=== PATIENT | male | born 1980 | race Caucasian/White ===

== ENCOUNTER → 2016-10-26 | Outpatient (CLI) | payer OTHER ==
[2016-10-26 12:57] LABS: ALT/SGPT 41 U/L (12-78); BLOOD UREA NITROGEN 26 mg/dl (7-18); BUN/CREATININE RATIO 32.3 (10-20); CALCIUM 9.3 mg/dl (8.5-10.1); CARBON DIOXIDE 27 mmol/L (21-32); CHLORIDE 101 mmol/L (98-107); GLUCOSE 269 mg/dl (70-99); POTASSIUM 4.5 mmol/L (3.5-5.1); SODIUM 136 mmol/L (136-145)
[2016-10-26 13:08] LABS: ALKALINE PHOSPHATASE 101 U/L (45-117); AST/SGOT 17 U/L (15-37); CHOLESTEROL 131 mg/dl (0-200); CHOLESTEROL/HDL RATIO 4.5; HDL CHOLESTEROL 29 mg/dl; LDL CHOLESTEROL CALCULATED 67 mg/dl; TRIGLYCERIDES 175 mg/dl (0-150); VERY LOW DENSITY LIPOPROT CALC 35 mg/dl
[2016-10-26 15:20] LABS: ESTIMATED AVERAGE GLUCOSE 275 mg/dl; HA1C FLAG Normal (Normal)
== END | disposition home or self-care (01) ==
LOC: C.LABPBG 07:54
PROVIDERS: ATTEND Neuromusculoskeletal Medicine & OMM
DX: E11.9 Type 2 diabetes mellitus without complications (principal)

== ENCOUNTER → 2017-01-22 | Outpatient (CLI) | payer OTHER ==
[2017-01-22 12:51] LABS: ALT/SGPT 32 U/L (12-78); AST/SGOT 13 U/L (15-37); BLOOD UREA NITROGEN 15 mg/dl (7-18); BUN/CREATININE RATIO 20.3 (10-20); CALCIUM 8.6 mg/dl (8.5-10.1); CARBON DIOXIDE 25 mmol/L (21-32); CHLORIDE 106 mmol/L (98-107); CREATININE 0.73 mg/dl (0.60-1.40); GLUCOSE 260 mg/dl (70-99); POTASSIUM 4.1 mmol/L (3.5-5.1); SODIUM 138 mmol/L (136-145)
[2017-01-22 12:54] LABS: ALB/GLOB RATIO 1.1 (0.9-2); ALKALINE PHOSPHATASE 107 U/L (45-117)
[2017-01-22 13:46] LABS: ESTIMATED AVERAGE GLUCOSE 252 mg/dl; HA1C FLAG Normal (Normal)
== END | disposition home or self-care (01) ==
LOC: C.LABPBG 08:34
PROVIDERS: ATTEND Neuromusculoskeletal Medicine & OMM
DX: E11.9 Type 2 diabetes mellitus without complications (principal)

== ENCOUNTER → 2017-04-16 | Outpatient (CLI) | payer OTHER ==
[2017-04-16 17:40] LABS: BLOOD UREA NITROGEN 17 mg/dl (7-18); CALCIUM 9.1 mg/dl (8.5-10.1); CARBON DIOXIDE 28 mmol/L (21-32); CREATININE 0.84 mg/dl (0.60-1.40); GLUCOSE 342 mg/dl (70-99); POTASSIUM 4.2 mmol/L (3.5-5.1); SODIUM 134 mmol/L (136-145)
[2017-04-17 06:14] LABS: HEMOGLOBIN A1C 10.6 % (4.5-5.6)
== END | disposition home or self-care (01) ==
LOC: C.LABPBG 15:44
PROVIDERS: ATTEND Neuromusculoskeletal Medicine & OMM
DX: Z00.00 Encounter for general adult medical examination without abnormal findings (principal); E11.9 Type 2 diabetes mellitus without complications

== ENCOUNTER 2021-04-19 15:59 | Inpatient (IN) ==
[2021-04-19] MEDS ORDERED: ONDANSETRON INJ 2 MG/ML 2 ML VIAL IV STA (16:42)
[2021-04-19] MEDS ORDERED: MoRPHine SULFATE 10 MG/ML CARP/VIAL IV STA (16:42)
[2021-04-19] MEDS ORDERED: SODIUM CHLORIDE 0.9% 1000ML 1,000 ML IV ONE (16:45)
--- NOTE | 2021-04-19 16:58 | Emergency Department Note ---
History of Present Illness General Chief complaint: Back Injury/Pain Stated complaint: PAIN, BULGING DISC, BONE SPURS, PINCHED NERVES Time Seen by Provider: 04/19/21 16:14 History of Present Illness Maximum Pain Intensity: 10 40-year-old male who presents to the emergency department with his via private transportation for evaluation of uncontrollable lower back pain radiating down the left lower extremity to the foot. He reports complete numbness of the great toe. The patient reports that he has been seen in the emergency department twice for his condition. He had a recent MRI showing a herniated disc, and is awaiting an appointment with Dr. Vang on 04/28/2021. He also has an appointment to see pain management on 05/12/2021. His PCP tried steroids, however this did raise his blood glucose level too much. The patient was placed on diclofenac 75 mg twice daily, along with Percocets. The patient reports that he took 1 Percocet this morning at 6 AM, 8 AM, 11 PM and 1 PM without relief. The patient has not had any bladder or bowel incontinence. He denies fever or chills. The patient denies any known precipitating injury for his disc herniation, and rates his discomfort a 10 out of 10. Home Medications Medication Instructions Recorded Confirmed Type blood-glucose meter (ListRunneruch #1 ea 12/09/19 03/15/21 Rx Ultra2 Meter) metformin 850 mg tablet 850 mg PO BID #180 tab 12/23/20 04/19/21 Rx cyclobenzaprine 10 mg tablet 10 mg PO TID PRN #30 tab 02/06/21 04/19/21 Rx pen needle, diabetic 32 gauge x #100 ea 02/10/21 03/15/21 Rx 5/32" (BD Ultra-Fine Socorro Pen Needle) blood sugar diagnostic #100 ea 02/13/21 03/15/21 Rx lancets 33 gauge (OneTouch Delica #100 ea 02/13/21 03/15/21 Rx Lancets) diclofenac sodium 75 mg 75 mg PO BID #60 tab 03/15/21 04/19/21 Rx tablet,delayed release insulin aspar prot-insulin aspart 20 unit SUBCUT BID #15 ml 03/22/21 04/19/21 Rx 100 unit/mL (70-30) subcutaneous pen (Novolog Mix 70-30FlexPen U-100) tramadol 50 mg tablet 50 mg PO TID PRN #30 tab 04/04/21 04/19/21 Rx atorvastatin 20 mg tablet 20 mg PO HS 04/11/21 04/19/21 History lisinopril 2.5 mg tablet 2.5 mg PO HS 04/11/21 04/19/21 History oxycodone-acetaminophen 5 mg-325 1 - 2 tab PO Q8H PRN #60 tab 04/14/21 04/19/21 Rx mg tablet (Percocet) insulin degludec 100 See Rx Instructions .ROUTE 04/17/21 04/19/21 Rx unit-liraglutide 3.6 mg/mL(3 mL) .COMPLEX #15 ml subcutaneous pen (Xultophy 100/3.6) prednisone 20 mg tablet 20 mg PO DAILY #40 tab 04/19/21 04/19/21 Rx Allergies Allergy/AdvReac Type Severity Reaction Status Date / Time No Known Allergies Allergy Verified 04/19/21 18:51 Past Med/Surg History Medical History (Updated 04/19/21 @ 21:58 by Bony Rodriguez MD) Diabetes Hearing difficulty Hyperlipidemia Hypertension Postural imbalance Surgical History History of cholecystectomy Family History Grandfather Myocardial infarction Coronary heart disease Diabetes Grandmother Myocardial infarction Coronary heart disease Father Diabetes Hypertension Denies family history of Ovarian cancer Prostate cancer Breast cancer Colorectal cancer Social History Smoking Status: Never smoker Second Hand Exposure: No; Hx Alcohol Use: No Hx Substance Use: No Preferred Language: Romansh Visual Impairment: No Limitations Hearing Ability: Normal Hose Wrapper Required: No Beliefs That Will Affect Care: None marital status: Current Living Situation: Spouse and Family current occupational status: employed current occupation: manual receiver/laborer Other Information That Helps Us Care for You: No Feels Safe at Home: Yes Safety Concerns: Feels Safe At This Time Childhood Exposure to Second-Hand Smoke: No Dental Care, Regularly: No Physical Activity Frequency: Does not Exercise Seatbelt Use: always Sunscreen Use: Yes Assistive Devices: Glasses Review of Systems 10 system review was performed and was negative except for pertinent positives and negatives as indicated in history of present illness Physical Exam Vital Signs Vital Signs - 24 hr 04/19/21 16:02 04/19/21 17:20 04/19/21 18:00 Temperature 36.9 C Temperature Source Temporal Artery Scan Pulse Rate 102 H 106 H 91 H Pulse Rate from SpO2 Sensor 107 H 91 H Respiratory Rate 16 23 25 H Blood Pressure 154/102 H 144/94 H Blood Pressure Mean 119 110 Pulse Oximetry 100 100 98 Oxygen Delivery Method Room Air Sepsis Recent Fever Within 48 Hours No Sepsis New/Unexplained Change in Mental Status N/A Sepsis Action Taken by Nursing No Action Required 04/19/21 19:00 Temperature Temperature Source Pulse Rate 88 Pulse Rate from SpO2 Sensor 86 Respiratory Rate 17 Blood Pressure Blood Pressure Mean Pulse Oximetry 97 Oxygen Delivery Method Sepsis Recent Fever Within 48 Hours Sepsis New/Unexplained Change in Mental Status Sepsis Action Taken by Nursing CONSTITUTIONAL: Healthy and well nourished. Alert and oriented X 3. Patient appears in moderately severe discomfort. HEENT: No scleral icterus or conjunctival injection. NECK: Full active range of motion without discomfort. LYMPHATICS: No cervical chain adenopathy. RESPIRATORY: Clear to auscultation bilaterally with no wheezing, crackles, rhonchi or stridor. CARDIOVASCULAR: Regular rate and rhythm with no murmurs, rubs or gallops. GASTROINTESTINAL: Bowel sounds present in all quadrants. Abdomen is soft and nontender to palpation. MUSCULOSKELETAL: Examination shows tenderness to palpation through the lower lumbar spine without any obvious paraspinous spasm. Negative logroll of the left hip. Positive straight leg raise of the left leg. Negative crossover exam. Hip abductor strength is 3 out of 5 on the left, 4 out of 5 on the right. Pedal pulses are intact. INTEGUMENTARY: No rash or other significant dermatologic conditions noted. HEMATOLOGIC: No ecchymosis or petechiae. PSYCHIATRIC: Positive affect. NEUROLOGIC: No focal neurologic deficits noted. Lower extremity deep tendon reflexes are 2+ and symmetric bilaterally. Course Course Patient history and physical exam were performed. Nurses notes were reviewed. Vital signs were reviewed, showing an elevated blood pressure of 154/102. He is also mildly tachycardic. Patient appears in moderate severe discomfort. I also reviewed prior medical records, showing 2 prior ED visits for his back pain. The patient had an MRI performed on 04/13/2021, showing a right paracentral disc protrusion/herniation at L5-S1 with inferior migration of a 6-7 mm disc fragment. Given the patient's intractable radicular back pain, and current MRI findings, I did discuss the case further with Dr. Vang, spine surgeon, who reviewed MRI findings, and indicates that the patient does need a more urgent surgical intervention. He has requested discussing the case further with the hospitalist service, and anticipates surgical intervention on Saturday. The case was then further discussed with the [facility] Hospitalist service, Dr. Rodriguez. Additional orders were placed for admission, including basic lab work, ECG and portable chest x-ray. Review of labs does show a mild leukocytosis with left shift and bandemia. CMP shows random glucose of 185, otherwise creatinine and LFTs are normal. RNA COVID-19 test was negative. ECG shows a normal sinus rhythm with a poor baseline. Portable chest x-ray was also performed and was normal. Administered Medications Morphine Sulfate (Morphine Sulfate 10 Mg/Ml Carp/Vial) 6 mg IV Q4H PRN PRN Reason: Pain Stop: 05/03/21 23:05 Last Admin: 04/19/21 23:51 Dose: 6 mg Documented by: [id number] Discontinued Medications Hydromorphone HCl (Hydromorphone Inj 0.5 Mg/0.5 Ml Syr) 0.5 mg IV Q1H PRN PRN Reason: Pain Stop: 05/03/21 20:11 Last Admin: 04/19/21 22:00 Dose: 0.5 mg Documented by: [id number] Sodium Chloride (Nss 1000ml) 1,000 mls @ 999 mls/hr IV .Q1H1M ONE Stop: 04/19/21 17:45 Last Infusion: 04/19/21 18:22 Dose: 0 mls/hr Documented by: [id number] Admin: 04/19/21 17:16 Dose: 999 mls/hr Documented by: [id number] Morphine Sulfate (Morphine Sulfate 10 Mg/Ml Carp/Vial) 8 mg IV NOW STA Stop: 04/19/21 16:43 Last Admin: 04/19/21 17:17 Dose: 8 mg Documented by: [id number] Ondansetron HCl (Ondansetron Inj 2 Mg/Ml 2 Ml Vial) 4 mg IV NOW STA Stop: 04/19/21 16:43 Last Admin: 04/19/21 17:16 Dose: 4 mg Documented by: [id number] Medical Decision Making Medical Records Attestation: I reviewed the patient's medical records. Home Medications Current Medication List: was personally reviewed by me Laboratory Data Attestation: I reviewed the patient's lab results. Result diagrams: 04/19/21 17:15 04/19/21 17:15 Lab Results 04/19/21 04/19/21 04/19/21 Range/Units 17:15 17:15 17:16 WBC 13.65 H (4.8-10.8) K/uL RBC 4.80 (4.7-6.1) M/uL Hgb 14.3 (14.0-18.0) g/dL Hct 40.8 L (42-52) % MCV 85.0 (80-100) fL MCH 29.8 (25-34) pg MCHC 35.0 (32-36) g/dL RDW Std Deviation 39.3 (36.4-46.3) fL RDW Coeff of Domenic 12.5 (11.5-14.5) % Plt Count 370 (130-400) K/uL MPV 9.5 (7.4-10.4) fL Immature Gran % (Auto) 0.2 % Neut % (Auto) 73.6 % Lymph % (Auto) 12.2 % Eddy % (Auto) 11.8 % Eos % (Auto) 2.1 % Baso % (Auto) 0.1 % Neut # (Auto) 10.05 H (1.4-6.5) K/uL Lymph # (Auto) 1.66 (1.2-3.4) K/uL Eddy # (Auto) 1.61 H (0.11-0.59) K/uL Eos # (Auto) 0.28 (0-0.5) K/uL Baso # (Auto) 0.02 (0-0.2) K/uL Immature Gran # (Auto) 0.03 H (0.00-0.02) K/uL Sodium 138 (136-145) mmol/L Potassium 4.1 (3.5-5.1) mmol/L Chloride 106 (98-107) mmol/L Carbon Dioxide 25 (21-32) mmol/L Anion Gap 7 (3-11) BUN 20 (6-23) mg/dl Creatinine 0.69 (0.6-1.4) mg/dl Est Cr Clr Drug Dosing Not Reportable Est GFR ( Amer) 135.7 ml/min Est GFR (Non-Af Amer) 117.1 ml/min BUN/Creatinine Ratio 29.0 H (10-20) Glucose 185 H (70-99(Fasting)) mg/dl Calcium 9.1 (8.5-10.1) mg/dl Total Bilirubin 0.4 (0.2-1.0) mg/dl AST 13 (13-39) U/L ALT 22 (7-52) U/L Alkaline Phosphatase 65 (34-104) U/L Total Protein 6.8 (6.0-8.3) gm/dl Albumin 3.9 (3.4-5.0) gm/dl Globulin 2.9 (2.5-4.0) gm/dl Albumin/Globulin Ratio 1.3 (0.9-2) SARS-CoV-2, RNA, NAAT NEGATIVE (NEGATIVE) Imaging Data Attestation: I personally reviewed and interpreted this imaging study as follows: My Impression: My interpretation of a portable chest x-ray does not show any consolidations, pneumothorax or cardiac prominence. The patient's recent MRI report and images were also personally reviewed by me, and discussed with Dr. Vang. Radiologist's Impression: Chest X-Ray 04/19/21 16:42 XR chest 1V portable HISTORY: Back pain. Pre-op COMPARISON: None. FINDINGS: The lungs are clear. Cardiac silhouette is normal in size. No pleural effusions. No pneumothorax. IMPRESSION: No acute process. ACT 112: Negative or not required by law. Electronically signed by: Mohinder Benz M.D. 04/19/2021 4:58 PM ECG Data Attestation: I personally reviewed and interpreted this ECG as follows: Indication: + other (Presurgical ECG) Rate (beats per minute): 92 Rhythm: + normal sinus ECG Intervals/blocks: + Normal QT ECG Norman: + Normal ECG ST segments: + Normal ST segments Comparison ECG Date: no prior available Blood Pressure Blood Pressure Findings: Elevated blood pressure Blood Pressure Disposition: elevated BP felt to be situational MDM Narrative Patient presents to the emergency department with complaint of severe and intractable lower back pain radiating down the left lower extremity to the foot and great toe. The patient has an MRI confirming a large L5-S1 herniation with disc fragment. The case was further discussed with Dr. Vang, spine surgeon, there does feel that the patient warrants urgent surgical decompression. Patient currently does not have any physical exam or MRI findings to suggest cauda equina syndrome. Patient also denies any recent infections to suggest i nfectious etiology. Impression & Plan Intractable neuropathic pain of lumbosacral origin, Lumbar disc herniation with radiculopathy, Insulin dependent diabetes mellitus Discharge Plan Visit Data Chief Complaint: Back Injury/Pain Stated Complaint: PAIN, BULGING DISC, BONE SPURS, PINCHED NERVES ED Provider: Charla Mcrae ED Midlevel Provider: Luis E Shin Discharge Problem: Intractable neuropathic pain of lumbosacral origin, Lumbar disc herniation with radiculopathy, Insulin dependent diabetes mellitus Patient Disposition: Admitted As Inpatient Discharge Instructions Interventions: ED Discharge Assessment Last Done: 04/19/21 22:39
--- NOTE | 2021-04-19 16:59 | XRay Report ---
XR chest 1V portable HISTORY: Back pain. Pre-op COMPARISON: None. FINDINGS: The lungs are clear. Cardiac silhouette is normal in size. No pleural effusions. No pneumot horax. IMPRESSION: No acute process. ACT 112: Negative or not required by law. Electronically signed by: Mohinder Benz M.D. 04/19/2021 4:58 PM
[2021-04-19 17:29] LABS: Basophils # (auto) 0.02 K/uL (0-0.2); Basophils % (auto) 0.1 %; Eosinophils # (auto) 0.28 K/uL (0-0.5); Eosinophils % (auto) 2.1 %; Hematocrit (blood only) 40.8 % (42-52); Hemoglobin 14.3 g/dL (14.0-18.0); Immature Granulocytes # (auto) 0.03 K/uL (0.00-0.02); Immature Granulocytes % (auto) 0.2 %; Lymphocytes # (auto) 1.66 K/uL (1.2-3.4); Lymphocytes % (auto) 12.2 %; Mean Corpuscular Hemoglobin 29.8 pg (25-34); Mean Platelet Volume 9.5 fL (7.4-10.4); Monocytes # (auto) 1.61 K/uL (0.11-0.59); Monocytes % (auto) 11.8 %; Neutrophils # (auto) 10.05 K/uL (1.4-6.5); Neutrophils % (auto) 73.6 %; Platelet Count 370 K/uL (130-400); RDW Coefficient of Variation 12.5 % (11.5-14.5); RDW Standard Deviation 39.3 fL (36.4-46.3); White Blood Count 13.65 K/uL (4.8-10.8)
[2021-04-19 17:53] LABS: Alanine Aminotransferase 22 U/L (7-52); Albumin Globulin Ratio 1.3 (0.9-2); Albumin Level 3.9 gm/dl (3.4-5.0); Alkaline Phosphatase 65 U/L (34-104); Anion Gap 7 (3-11); Aspartate Aminotransferase 13 U/L (13-39); Bilirubin,Total 0.4 mg/dl (0.2-1.0); Blood Urea Nitrogen 20 mg/dl (6-23); Calcium 9.1 mg/dl (8.5-10.1); Carbon Dioxide 25 mmol/L (21-32); Chloride 106 mmol/L (98-107); Est GFR (African American) 135.7 ml/min; Est GFR (Non-African American) 117.1 ml/min; Globulin 2.9 gm/dl (2.5-4.0); Glucose 185 mg/dl (70-99(Fasting)); Potassium 4.1 mmol/L (3.5-5.1); Sodium 138 mmol/L (136-145); Total Protein 6.8 gm/dl (6.0-8.3)
--- NOTE | 2021-04-19 18:34 | History & Physical Report ---
Date of Service April 19, 2021 Assessment & Plan (1) Left lumbar radiculopathy: Plan: Failing all medical therapy at this point. Unable to cope at home. Continue diclofenac 75 mg p.o. twice daily, acetaminophen 1 g p.o. 3 times daily Oxycodone 10 mg every 4 hourly as needed for breakthrough pain first-line, morphine 6 mg every 4 hourly as needed for breakthrough pain second line Discussed pain management versus orthopedics and patient wishes to discuss surgery further at this time. Consult orthospine - ER provider already discussed with Dr. Vang. (2) Insulin dependent diabetes mellitus: Plan: HbA1C 9.3 in March, no need to repeat Home regimen Novolog 70/30 20 units BID and Xultrophy 100/3.6 0.5ml Hold GLP-1 and metformin Start lantus 12 units BID Novolog: Goal BSG Range: Low 110 mg/dL, High 140 mg/dL Correction Factor: 30 mg/dL/unit Carbohydrate ratio = 10 g/unit BSGs ACHS if eating, q6h if npo (3) Hyperlipidemia: Plan: Continue atorvastatin 20 mg p.o. at bedtime (4) Hypertension: Plan: Continue lisinopril 2.5 mg p.o. at bedtime Plan: VTE Prophylaxis - low risk Diet - T2DM Disposition - admit to med/surg Admission and Anticipated Discharge Date Admission Date: April 19, 2021 History of Present Illness Chief Complaint: Left S1 radiculopathy pain Primary Care Provider: Jasper Madison DO Lai Coates is a 40 year old male who presents to the ER with back pain. He reports this has been going on since January since he had COVID-19 but progressively getting worse. It is mainly a radiating pain from his lower back to left hip/buttocks radiating down lateral leg. Associated lateral hip clicking. Exacerbated by standing or walking. Severity currently 5/10 while lying still, 10/10 on arrival to the ER. Associated numbness in his left 1st toe and milder on the dorsal aspect of his left foot. Slightly more constipation with pain medications but no perianal numbness or bowel/urine incontinence. He has been seeing his PCP for this and organized PT which made his pain worse after 2.5 weeks he had to stop and PT recommended getting an MRI of his back. Tried chiropractor, ice, heat, two courses of steroids. Started on diclofenac twice a day which has helped only a little. Using Percocet for breakthrough pain but this is also no longer working. He has an appointment set up for Dr Vang's PA on Apr and pain clinic on May. He was a lot worse today and lying o the floor, crying unable to get up therefore decided to come to the ER. Works at [employer] and unable to work as most of his job is lifting heavy boxes. Recent MRI confirmed right paracentral disc protrusion/herniation at L5-S1. ER provider discussed with ortho spine and recommended admission under medicine due to his diabetes with ortho spine consult. Allergies Allergy/AdvReac Type Severity Reaction Status Date / Time No Known Allergies Allergy Verified 04/19/21 18:51 Home Medications Medication Instructions Recorded Confirmed Type blood-glucose meter (CE2 Carbon CapitalTouch #1 ea 12/09/19 03/15/21 Rx Ultra2 Meter) metformin 850 mg tablet 850 mg PO BID #180 tab 12/23/20 04/19/21 Rx cyclobenzaprine 10 mg tablet 10 mg PO TID PRN #30 tab 02/06/21 04/19/21 Rx pen needle, diabetic 32 gauge x #100 ea 02/10/21 03/15/21 Rx 5/32" (BD Ultra-Fine Socorro Pen Needle) blood sugar diagnostic #100 ea 02/13/21 03/15/21 Rx lancets 33 gauge (OneTouch Delica #100 ea 02/13/21 03/15/21 Rx Lancets) diclofenac sodium 75 mg 75 mg PO BID #60 tab 03/15/21 04/19/21 Rx tablet,delayed release insulin aspar prot-insulin aspart 20 unit SUBCUT BID #15 ml 03/22/21 04/19/21 Rx 100 unit/mL (70-30) subcutaneous pen (Novolog Mix 70-30FlexPen U-100) tramadol 50 mg tablet 50 mg PO TID PRN #30 tab 04/04/21 04/19/21 Rx atorvastatin 20 mg tablet 20 mg PO HS 04/11/21 04/19/21 History lisinopril 2.5 mg tablet 2.5 mg PO HS 04/11/21 04/19/21 History oxycodone-acetaminophen 5 mg-325 1 - 2 tab PO Q8H PRN #60 tab 04/14/21 04/19/21 Rx mg tablet (Percocet) insulin degludec 100 See Rx Instructions .ROUTE 04/17/21 04/19/21 Rx unit-liraglutide 3.6 mg/mL(3 mL) .COMPLEX #15 ml subcutaneous pen (Xultophy 100/3.6) prednisone 20 mg tablet 20 mg PO DAILY #40 tab 04/19/21 04/19/21 Rx Past Med/Surg History Medical History (Updated 04/19/21 @ 21:58 by Bony Rodriguez MD) Diabetes Hearing difficulty Hyperlipidemia Hypertension Postural imbalance Surgical History History of cholecystectomy Family History Grandfather Myocardial infarction Coronary heart disease Diabetes Grandmother Myocardial infarction Coronary heart disease Father Diabetes Hypertension Denies family history of Ovarian cancer Prostate cancer Breast cancer Colorectal cancer Social History Smoking Status: Never smoker Second Hand Exposure: No; Hx Alcohol Use: No Hx Substance Use: No Preferred Language: Slovenian Visual Impairment: No Limitations Hearing Ability: Normal Client Service Associate Required: No Beliefs That Will Affect Care: None marital status: Current Living Situation: Spouse and Family current occupational status: employed current occupation: manual laborer yard Other Information That Helps Us Care for You: No Feels Safe at Home: Yes Safety Concerns: Feels Safe At This Time Childhood Exposure to Second-Hand Smoke: No Dental Care, Regularly: No Physical Activity Frequency: Does not Exercise Seatbelt Use: always Sunscreen Use: Yes Assistive Devices: None Review of Systems Review of Systems: All systems reviewed & are unremarkable except as noted in HPI & below Physical Exam Constitutional: WD/WN, vitals as above Eyes: + anicteric sclerae; normal pupil size ENMT: external ear and nose normal, oropharynx normal Neck: trachea midline, no thyromegaly Respiratory: normal respiratory effort, lungs clear to auscultation Cardiovascular: RRR, no murmur, no edema Gastrointestinal (Abdomen): normal bowel sounds, soft, nontender, no hepatosplenomegaly Musculoskeletal: no cyanosis or clubbing, extremities motor strength 5/5 Spine: + paraspinal tenderness (left) Skin: no rashes, warm and dry Neurologic: moves all extremities and awake; no focal motor deficits and not confused Motor/Sensory: + sensory deficit (dorsal left foot) Psychiatric: A+Ox3, euthymic affect Results & Data Results & Data ([facility]) Vital Signs (Past 12 Hours) Vital Signs Temp Pulse Resp BP Pulse Ox 04/19/21 16:02 36.9 C 102 H 16 154/102 H 100 Laboratory Results Abnormal lab results 04/19/21 04/19/21 Range/Units 17:15 17:15 WBC 13.65 H (4.8-10.8) K/uL Hct 40.8 L (42-52) % Neut # (Auto) 10.05 H (1.4-6.5) K/uL Grady # (Auto) 1.61 H (0.11-0.59) K/uL Immature Gran # (Auto) 0.03 H (0.00-0.02) K/uL BUN/Creatinine Ratio 29.0 H (10-20) Glucose 185 H (70-99(Fasting)) mg/dl Diagnostic Findings XR chest 1V portable HISTORY: Back pain. Pre-op COMPARISON: None. FINDINGS: The lungs are clear. Cardiac silhouette is normal in size. No pleural effusions. No pneumothorax. IMPRESSION: No acute process. Medications Administered ER Medications Given: NSS 1L bolus Ondansetron 4mg IV Morphine 8mg IV ECG Indication: other (back pain) Rate (beats per minute): 92 Rhythm: normal sinus Findings: no acute ischemic change Comparison ECG Date: no prior available Code Status & VTE Plan Code Status Full VTE Prophylaxis Plan VTE Prophylaxis will be ordered: No Reason for no VTE drug order: Treatment not indicated Reason for no VTE mechanical prophylaxis: Treatment not indicated PG Care Time/CCT Total # of Minutes Spent Total Time Spent with Patient: Total time spent is greater than 50% in coordination of care (as documented) at patient's floor/unit and/or counseling patient: Coding Level of Care Code 70823 Initial Inpt Care Lvl 2 Diagnoses Left lumbar radiculopathy M54.16 Insulin dependent diabetes mellitus Hyperlipidemia E78.5 Hypertension I10
[2021-04-19] MEDS ORDERED: HYDROmorphone INJ 0.5 MG/0.5 ML SYR IV PRN (20:12)
[2021-04-19] MEDS ORDERED: DEXTROSE 50% 50 ML SYRINGE IV PRN (23:06)
[2021-04-19] MEDS ORDERED: GLUCOSE 10 TABS/TUBE PO PRN (23:06)
[2021-04-19] MEDS ORDERED: GLUCAGON FOR INJ 1 MG VIAL SQ PRN (23:06)
[2021-04-19] MEDS ORDERED: CYCLOBENZAPRINE HCL 10 MG TAB PO PRN (23:06)
[2021-04-19] MEDS ORDERED: GLUCOSE 40% GEL 15 GM TUBE PO PRN (23:06)
[2021-04-19] MEDS: MoRPHine SULFATE 10 MG/ML CARP/VIAL IV PRN (23:51)
[2021-04-20] MEDS: oxyCODONE HCL IR 5 MG TAB (IMMEDIATE RELEASE) PO PRN ×4 (01:03→21:28)
[2021-04-20] MEDS: ATORVASTATIN 20 MG TAB PO SCH ×2 (02:24→20:13)
[2021-04-20] MEDS: lisinopril 2.5 MG TAB PO SCH ×2 (02:25→20:13)
[2021-04-20] MEDS: DICLOFENAC SODIUM 75 MG TABCR PO SCH ×3 (02:25→20:12)
[2021-04-20] MEDS: INSULIN GLARGINE SOLOSTAR 100 UNITS/ML 3 ML PEN SC SCH ×3 (02:26→20:59)
[2021-04-20] MEDS: MoRPHine SULFATE 10 MG/ML CARP/VIAL IV PRN ×3 (07:26→19:52)
--- NOTE | 2021-04-20 09:00 | Orthopedic Consultation ---
Date of Consultation April 20, 2021 Assessment & Plan (1) Left lumbar radiculopathy: Assessment Far lateral disc herniation with severe neuroforaminal stenosis L4-L5. Plan at this time vital discussed with this patient reviewed the MRI with him. He is a candidate for surgical intervention. We will most likely require a lumbar decompression and fusion L4-L5. This was bilaterally to safely access the exiting L4 nerve root by way of facetectomy creating a window for complete decompression. Risk-benefit pros cons alternatives were reviewed. I will make him n.p.o. from midnight we will plan for possible surgery tomorrow. History of Present Illness Reason for Consultation: Left leg pain Attending Physician: Rome Vences DO History of Present Illness This is a very pleasant 40-year-old male that is in obvious severe distress. He describes severe left leg pain radiating down to his left dorsum of his foot. Markedly exacerbated with activity. It began roughly in January and was originally controlled with oral pain medications and anti-inflammatories. It did progressively worsen. He trialed a course of oral steroids followed by a stronger course of oral steroids which only exacerbated his underlying diabetes and provided no improvement. He presents now for the second time in the emergency room with severe radiculopathy and inability to tolerate the pain. Allergies Allergy/AdvReac Type Severity Reaction Status Date / Time No Known Allergies Allergy Verified 04/19/21 18:51 Home Medications Medication Instructions Recorded Confirmed Type blood-glucose meter ([employer] #1 ea 12/09/19 03/15/21 Rx Ultra2 Meter) metformin 850 mg tablet 850 mg PO BID #180 tab 12/23/20 04/19/21 Rx cyclobenzaprine 10 mg tablet 10 mg PO TID PRN #30 tab 02/06/21 04/19/21 Rx pen needle, diabetic 32 gauge x #100 ea 02/10/21 03/15/21 Rx 5/32" (BD Ultra-Fine [place] Pen Needle) blood sugar diagnostic #100 ea 02/13/21 03/15/21 Rx lancets 33 gauge ([facility] #100 ea 02/13/21 03/15/21 Rx Lancets) diclofenac sodium 75 mg 75 mg PO BID #60 tab 03/15/21 04/19/21 Rx tablet,delayed release insulin aspar prot-insulin aspart 20 unit SUBCUT BID #15 ml 03/22/21 04/19/21 Rx 100 unit/mL (70-30) subcutaneous pen (Novolog Mix 70-30FlexPen U-100) tramadol 50 mg tablet 50 mg PO TID PRN #30 tab 04/04/21 04/19/21 Rx atorvastatin 20 mg tablet 20 mg PO HS 04/11/21 04/19/21 History lisinopril 2.5 mg tablet 2.5 mg PO HS 04/11/21 04/19/21 History oxycodone-acetaminophen 5 mg-325 1 - 2 tab PO Q8H PRN #60 tab 04/14/21 04/19/21 Rx mg tablet (Percocet) insulin degludec 100 See Rx Instructions .ROUTE 04/17/21 04/19/21 Rx unit-liraglutide 3.6 mg/mL(3 mL) .COMPLEX #15 ml subcutaneous pen (Xultophy 100/3.6) prednisone 20 mg tablet 20 mg PO DAILY #40 tab 04/19/21 04/19/21 Rx Patient History Medical History (Updated 04/19/21 @ 21:58 by Bony Rodriguez MD) Diabetes Hearing difficulty Hyperlipidemia Hypertension Postural imbalance Surgical History History of cholecystectomy Family History Grandfather Myocardial infarction Coronary heart disease Diabetes Grandmother Myocardial infarction Coronary heart disease Father Diabetes Hypertension Denies family history of Ovarian cancer Prostate cancer Breast cancer Colorectal cancer Social History Smoking Status: Never smoker Second Hand Exposure: No; Hx Alcohol Use: No Hx Substance Use: No Preferred Language: Cameroonian Visual Impairment: No Limitations Hearing Ability: Normal Mussel Farmer Required: No Beliefs That Will Affect Care: None marital status: Current Living Situation: Spouse and Family current occupational status: employed current occupation: manual laborer livestock Other Information That Helps Us Care for You: No Feels Safe at Home: Yes Safety Concerns: Feels Safe At This Time Childhood Exposure to Second-Hand Smoke: No Dental Care, Regularly: No Physical Activity Frequency: Does not Exercise Seatbelt Use: always Sunscreen Use: Yes Assistive Devices: None Physical Exam Physical Exam: On exam the patient is distress. He does have severe tension signs with straight leg raising on the left and contralateral signs with straight leg raising on the right. There is a positive Lasegue's maneuver on the left. Negative logroll. Sensory is diminished on the left lower extremity compared to the right. He has a plus 5 out of 5 plantar flexion dorsiflexion extensor pollicis longus to bedside testing. Results & Data ([facility]) Vital Signs (Past 12 Hours) Vital Signs Temp Pulse Pulse Resp BP BP Pulse Ox 04/20/21 07:20 36.8 C 91 H 16 124/75 98 04/19/21 22:50 36.7 C 75 18 133/92 95 04/19/21 22:00 93 H 16 137/80 04/19/21 21:00 94 H 12 98
[2021-04-20] MEDS: INSULIN ASPART PER UNIT SC SCH ×4 (09:40→21:01)
--- NOTE | 2021-04-20 10:38 | Hospitalist Progress Note ---
Date of Service April 20, 2021 Assessment & Plan (1) Hypertension: Plan: # Left lumbar radiculopathy: Failing all medical therapy at this point. Unable to cope at home. Continue diclofenac 75 mg p.o. twice daily, acetaminophen 1 g p.o. 3 times daily -Oxycodone 10 mg every 4 hourly as needed for breakthrough pain first-line, morphine 6 mg every 4 hourly as needed for breakthrough pain second line -Orthopedics consulted following recommendations -Lateral disc herniation with severe neuroforaminal stenosis L4-L5 -Planned lumbar decompression and fusion L4-L5 for tomorrow -N.p.o. after midnight Insulin dependent diabetes mellitus: HbA1C 9.3 in March, no need to repeat -Home regimen Novolog 70/30 20 units BID and Xultrophy 100/3.6 0.5ml -Hold GLP-1 and metformin -Start lantus 12 units BID -Modified SSI as below Novolog: Goal BSG Range: Low 110 mg/dL, High 140 mg/dL Correction Factor: 25 mg/dL/unit Carbohydrate ratio = 8 g/unit BSGs ACHS if eating, q6h if npo #Hyperlipidemia: Continue atorvastatin 20 mg p.o. at bedtime #Hypertension: Continue lisinopril 2.5 mg p.o. at bedtime FENa: Type II diabetic diet Code Status: Full code DVT PPX: Not indicated given surgery, postop Lovenox PT/OT: We will consult postop Case Management: We will consult postop Dispo: Suman Wu MD PGY 3, FCM This chart was completed utilizing [employer] voice recognition software. Grammatical errors, random word insertions, pronoun errors, and in complete sentences are an occasional consequence of the system. Any questions or concerns about the content, text, or information contained within the body of this dictation should be addressed directly to the physician for clarification. (2) Left lumbar radiculopathy: (3) Diabetes: (4) Hearing difficulty: (5) Hyperlipidemia: (6) Postural imbalance: (7) Degenerative disc disease, lumbar: (8) Lumbar radiculopathy: (9) Intractable neuropathic pain of lumbosacral origin: Admission and Anticipated Discharge Date Admission Date: April 19, 2021 Supervising Physician Co-Signing Physician Notes I personally examined the patient and verified all elena points of history and exam, discussed case, and agree with decision making with Dr Wu back pain still bad. was doing a better job taking care of DM then covid, situation with r health, etc vitals noted nad heent breathing unalbored no accessory muscles good effort skin no rashes no pallor or icterus lumbar radic - for OR tomorrow uncontrolled DM- extensive discussion on critical role of lifestyle in DM management - he gets it well - actually pre-pandemic was making serious positive lifestyle change and it sounds like had A1c down to 7.2. discussed short term management / oysterman goals / lifestyle as potentially curative. ideal goal of cutting out simple carbs, exercise daily -- with "real life" caveats that some progress is better than nothing. anticipate he will do well once he recovers from this, etc otherwise as above Subjective Patient lying in bed this morning in no acute distress. Patient reporting his pain is well controlled. Patient reports that he has had a history of back pain which worsened after COVID-19 infection. His pain become so severe he presented to the emergency department. He is seeking consultation and is scheduled for surgery tomorrow. Otherwise he is tolerating his diet, voiding, stooling, sleeping well. Acute concerns related to surgery. Physical Exam Physical Exam: General: No acute distress HEENT: Normocephalic atraumatic Neck: No significant lymphadenopathy, trachea midline, normal to visual inspection Cardiac: Regular rate and rhythm, normal S1, normal S2, I did not appreciated any significant murmurs rubs or gallops, I did not appreciate any significant pedal edema, No calf tenderness, capillary refill is less than 3 seconds Respiratory: Clear to auscultation bilaterally with symmetrical chest rise, I did not appreciate any significant wheezes, rales, rhonchi, no increased work of breathing GI: Normal bowel sounds, soft, nontender in all 4 quadrants, nondistended MSK: Endorsing pain down his left lower extremity worse with movement Skin: Calcium, clean, dry, intact. Neuro: Alert and oriented x4 Psych: Calm, cooperative, logical thought process Results & Data Results & Data ([facility]) Vital Signs (Past 12 Hours) Vital Signs Temp Pulse Resp BP Pulse Ox 04/20/21 07:20 36.8 C 91 H 16 124/75 98 04/19/21 22:50 36.7 C 75 18 133/92 95 Laboratory Results 04/20/21 04/20/21 04/20/21 Range/Units 15:56 12:00 07:59 WBC (4.8-10.8) K/uL RBC (4.7-6.1) M/uL Hgb (14.0-18.0) g/dL Hct (42-52) % MCV (80-100) fL MCH (25-34) pg MCHC (32-36) g/dL RDW Std Deviation (36.4-46.3) fL RDW Coeff of Domenic (11.5-14.5) % Plt Count (130-400) K/uL MPV (7.4-10.4) fL Immature Gran % (Auto) % Neut % (Auto) % Lymph % (Auto) % [place] % (Auto) % Eos % (Auto) % Baso % (Auto) % Neut # (Auto) (1.4-6.5) K/uL Lymph # (Auto) (1.2-3.4) K/uL [place] # (Auto) (0.11-0.59) K/uL Eos # (Auto) (0-0.5) K/uL Baso # (Auto) (0-0.2) K/uL Immature Gran # (Auto) (0.00-0.02) K/uL Sodium (136-145) mmol/L Potassium (3.5-5.1) mmol/L Chloride (98-107) mmol/L Carbon Dioxide (21-32) mmol/L Anion Gap (3-11) BUN (6-23) mg/dl Creatinine (0.6-1.4) mg/dl Est Cr Clr Drug Dosing Est GFR ( Amer) ml/min Est GFR (Non-Af Amer) ml/min BUN/Creatinine Ratio (10-20) Glucose (70-99(Fasting)) mg/dl POC Glucose 215 H 164 H (70-99) mg/dl Calcium (8.5-10.1) mg/dl Total Bilirubin (0.2-1.0) mg/dl AST (13-39) U/L ALT (7-52) U/L Alkaline Phosphatase (34-104) U/L Total Protein (6.0-8.3) gm/dl Albumin (3.4-5.0) gm/dl Globulin (2.5-4.0) gm/dl Albumin/Globulin Ratio (0.9-2) SARS-CoV-2, RNA, NAAT (NEGATIVE) Blood Type Pending Antibody Screen Pending 04/19/21 04/19/21 04/19/21 Range/Units 23:12 17:16 17:15 WBC (4.8-10.8) K/uL RBC (4.7-6.1) M/uL Hgb (14.0-18.0) g/dL Hct (42-52) % MCV (80-100) fL MCH (25-34) pg MCHC (32-36) g/dL RDW Std Deviation (36.4-46.3) fL RDW Coeff of Domenic (11.5-14.5) % Plt Count (130-400) K/uL MPV (7.4-10.4) fL Immature Gran % (Auto) % Neut % (Auto) % Lymph % (Auto) % [place] % (Auto) % Eos % (Auto) % Baso % (Auto) % Neut # (Auto) (1.4-6.5) K/uL Lymph # (Auto) (1.2-3.4) K/uL [place] # (Auto) (0.11-0.59) K/uL Eos # (Auto) (0-0.5) K/uL Baso # (Auto) (0-0.2) K/uL Immature Gran # (Auto) (0.00-0.02) K/uL Sodium 138 (136-145) mmol/L Potassium 4.1 (3.5-5.1) mmol/L Chloride 106 (98-107) mmol/L Carbon Dioxide 25 (21-32) mmol/L Anion Gap 7 (3-11) BUN 20 (6-23) mg/dl Creatinine 0.69 (0.6-1.4) mg/dl Est Cr Clr Drug Dosing Not Reportable Est GFR ( Amer) 135.7 ml/min Est GFR (Non-Af Amer) 117.1 ml/min BUN/Creatinine Ratio 29.0 H (10-20) Glucose 185 H (70-99(Fasting)) mg/dl POC Glucose 148 H (70-99) mg/dl Calcium 9.1 (8.5-10.1) mg/dl Total Bilirubin 0.4 (0.2-1.0) mg/dl AST 13 (13-39) U/L ALT 22 (7-52) U/L Alkaline Phosphatase 65 (34-104) U/L Total Protein 6.8 (6.0-8.3) gm/dl Albumin 3.9 (3.4-5.0) gm/dl Globulin 2.9 (2.5-4.0) gm/dl Albumin/Globulin Ratio 1.3 (0.9-2) SARS-CoV-2, RNA, NAAT NEGATIVE (NEGATIVE) Blood Type Antibody Screen 04/19/21 Range/Units 17:15 WBC 13.65 H (4.8-10.8) K/uL RBC 4.80 (4.7-6.1) M/uL Hgb 14.3 (14.0-18.0) g/dL Hct 40.8 L (42-52) % MCV 85.0 (80-100) fL MCH 29.8 (25-34) pg MCHC 35.0 (32-36) g/dL RDW Std Deviation 39.3 (36.4-46.3) fL RDW Coeff of Domenic 12.5 (11.5-14.5) % Plt Count 370 (130-400) K/uL MPV 9.5 (7.4-10.4) fL Immature Gran % (Auto) 0.2 % Neut % (Auto) 73.6 % Lymph % (Auto) 12.2 % [place] % (Auto) 11.8 % Eos % (Auto) 2.1 % Baso % (Auto) 0.1 % Neut # (Auto) 10.05 H (1.4-6.5) K/uL Lymph # (Auto) 1.66 (1.2-3.4) K/uL [place] # (Auto) 1.61 H (0.11-0.59) K/uL Eos # (Auto) 0.28 (0-0.5) K/uL Baso # (Auto) 0.02 (0-0.2) K/uL Immature Gran # (Auto) 0.03 H (0.00-0.02) K/uL Sodium (136-145) mmol/L Potassium (3.5-5.1) mmol/L Chloride (98-107) mmol/L Carbon Dioxide (21-32) mmol/L Anion Gap (3-11) BUN (6-23) mg/dl Creatinine (0.6-1.4) mg/dl Est Cr Clr Drug Dosing Est GFR ( Amer) ml/min Est GFR (Non-Af Amer) ml/min BUN/Creatinine Ratio (10-20) Glucose (70-99(Fasting)) mg/dl POC Glucose (70-99) mg/dl Calcium (8.5-10.1) mg/dl Total Bilirubin (0.2-1.0) mg/dl AST (13-39) U/L ALT (7-52) U/L Alkaline Phosphatase (34-104) U/L Total Protein (6.0-8.3) gm/dl Albumin (3.4-5.0) gm/dl Globulin (2.5-4.0) gm/dl Albumin/Globulin Ratio (0.9-2) SARS-CoV-2, RNA, NAAT (NEGATIVE) Blood Type Antibody Screen Medications Administered Current Inpatient Medications Atorvastatin Calcium (Atorvastatin 20 Mg Tab) 20 mg PO HS [facility] Stop: 05/19/21 23:29 Last Admin: 04/20/21 02:24 Dose: 20 mg Documented by: Cyclobenzaprine HCl (Cyclobenzaprine Hcl 10 Mg Tab) 10 mg PO TID PRN PRN Reason: muscle spasm Stop: 05/19/21 23:05 Dextrose (Dextrose 50% 50 Ml Syringe) 25 - 50 ml IV UD PRN; Protocol PRN Reason: Hypoglycemia Protocol Stop: 05/19/21 23:05 Diclofenac Sodium (Diclofenac Sodium 75 Mg Tabcr) 75 mg PO BID [facility] Stop: 05/19/21 23:29 Last Admin: 04/20/21 09:37 Dose: 75 mg Documented by: Glucagon (Glucagon For Inj 1 Mg Vial) 1 mg SQ UD PRN; Protocol PRN Reason: Hypoglycemia Protocol Stop: 05/19/21 23:05 Glucose (Glucose 10 Tabs/Tube) 4 - 8 tabs PO UD PRN; Protocol PRN Reason: Hypoglycemia Protocol Stop: 05/19/21 23:05 Glucose (Glucose 40% Gel 15 Gm Tube) 15 - 30 gm PO UD PRN; Protocol PRN Reason: Hypoglycemia Protocol Stop: 05/19/21 23:05 Insulin Aspart (Insulin Aspart Per Unit) 0 units SC ACHS [facility] Stop: 05/20/21 07:29 Last Admin: 04/20/21 12:45 Dose: 4 units Documented by: Insulin Glargine (Insulin Glargine Solostar 100 Units/Ml 3 Ml Pen) 12 units SC BID [facility] Stop: 05/19/21 23:29 Last Admin: 04/20/21 09:37 Dose: 12 units Documented by: Lisinopril (Lisinopril 2.5 Mg Tab) 2.5 mg PO HS [facility] Stop: 05/19/21 23:29 Last Admin: 04/20/21 02:25 Dose: 2.5 mg Documented by: Miscellaneous (Carbohydrates For Hypoglycemia ) 15 - 30 gm PO UD PRN PRN Reason: Hypoglycemia Protocol Stop: 05/19/21 23:05 Morphine Sulfate (Morphine Sulfate 10 Mg/Ml Carp/Vial) 6 mg IV Q4H PRN PRN Reason: Pain Stop: 05/03/21 23:05 Last Admin: 04/20/21 12:36 Dose: 6 mg Documented by: Oxycodone HCl (Oxycodone Hcl Ir 5 Mg Tab (Immediate Release)) 10 mg PO Q4H PRN PRN Reason: Pain Stop: 05/03/21 23:05 Last Admin: 04/20/21 16:26 Dose: 10 mg Documented by:
--- NOTE | 2021-04-20 12:11 | Billing Data ---
Date of Service April 20, 2021 Coding Level of Care Code 79356 Subseq Hosp Care Lvl 3
[2021-04-21] MEDS: MoRPHine SULFATE 10 MG/ML CARP/VIAL IV PRN ×2 (00:08→08:45)
--- NOTE | 2021-04-21 05:57 | Electrocardiogram Report ---
Test Reason : Blood Pressure : / mmHG Vent. Rate : 092 BPM Atrial Rate : 092 BPM P-R Int : 154 ms QRS Dur : 090 ms QT Int : 342 ms P-R-T Axes : 071 059 061 degrees QTc Int : 422 ms Poor data quality, interpretation may be adversely affected Normal sinus rhythm Possible Septal infarct , age undetermined Abnormal ECG No previous ECGs available Confirmed by Abelardo Garcia ([id number]) on 04/21/2021 5:57:15 AM Referred By: REFERRED SELF Confirmed By:Abelardo Garcia
[2021-04-21] MEDS ORDERED: Nursing to Pharmacy Communication SCH (07:00)
[2021-04-21] MEDS: INSULIN ASPART PER UNIT SC SCH ×3 (07:03→18:20)
[2021-04-21] MEDS: INSULIN GLARGINE SOLOSTAR 100 UNITS/ML 3 ML PEN SC SCH (08:48)
--- NOTE | 2021-04-21 09:02 | Hospitalist Progress Note ---
Date of Service April 21, 2021 Assessment & Plan (1) Hypertension: Plan: # Left lumbar radiculopathy: Failing all medical therapy at this point. Unable to cope at home. Continue diclofenac 75 mg p.o. twice daily, acetaminophen 1 g p.o. 3 times daily -Oxycodone 10 mg every 4 hourly as needed for breakthrough pain first-line, morphine 6 mg every 4 hourly as needed for breakthrough pain second line -Orthopedics consulted following recommendations -Lateral disc herniation with severe neuroforaminal stenosis L4-L5 -Planned lumbar decompression and fusion L4-L5 today -has been NPO since midnight #Insulin dependent diabetes mellitus: HbA1C 9.3 in March, no need to repeat -Home regimen Novolog 70/30 20 units BID and Xultrophy 100/3.6 0.5ml -Hold GLP-1 and metformin -Start lantus 12 units BID -BSG still out of goal range will tighten regimen as below -Novolog: Goal BSG Range: Low 110 mg/dL, High 140 mg/dL Correction Factor: 23 mg/dL/unit Carbohydrate ratio = 7 g/unit BSGs ACHS if eating, q6h if npo #Hyperlipidemia: Continue atorvastatin 20 mg p.o. at bedtime #Hypertension: Continue lisinopril 2.5 mg p.o. at bedtime FENa: Type II diabetic diet Code Status: Full code DVT PPX: Not indicated given surgery, postop Lovenox PT/OT: We will consult postop Case Management: We will consult postop [facility] Wu MD PGY 3, FCM This chart was completed utilizing [employer] voice recognition software. Grammatical errors, random word insertions, pronoun errors, and in complete sentences are an occasional consequence of the system. Any questions or concerns about the content, text, or information contained within the body of this dictation should be addressed directly to the physician for clarification. (2) Left lumbar radiculopathy: (3) Diabetes: (4) Hearing difficulty: (5) Hyperlipidemia: (6) Postural imbalance: (7) Degenerative disc disease, lumbar: (8) Lumbar radiculopathy: (9) Intractable neuropathic pain of lumbosacral origin: Admission and Anticipated Discharge Date Admission Date: April 19, 2021 Supervising Physician Co-Signing Physician Notes I personally examined the patient and verified all elena points of history and exam, discussed case, and agree with decision making with Dr Wu back pain still bad. for OR today. d/w ortho/spine - input appreciated vitals noted nad heent breathing unlabored no accessory muscles good effort skin no rashes no pallor or icterus lumbar radic - for OR today uncontrolled DM- 04/20 had extensive discussion on critical role of lifestyle in DM management - he gets it well - actually pre-pandemic was making serious positive lifestyle change and it sounds like had A1c down to 7.2. discussed short term management / half-way goals / lifestyle as potentially curative. ideal goal of cutting out simple carbs, exercise daily -- with "real life" caveats that some progress is better than nothing. anticipate he will do well once he recovers from this, etc. sugars good control overall inpt otherwise as above Subjective Patient lying in bed this morning in no acute distress. Endorse some back pain overnight however is feeling better now. Patient reports tolerating his diet, voiding and stooling. Patient numerous questions regarding his planned procedure. Denying chest pressure, chest pain reporting pain well controlled at present. Physical Exam Physical Exam: General: No acute distress HEENT: Normocephalic atraumatic Neck: No significant lymphadenopathy, trachea midline, normal to visual inspection Cardiac: Regular rate and rhythm, normal S1, normal S2, I did not appreciated any significant murmurs rubs or gallops, I did not appreciate any significant pedal edema, No calf tenderness, capillary refill is less than 3 seconds Respiratory: Clear to auscultation bilaterally with symmetrical chest rise, I did not appreciate any significant wheezes, rales, rhonchi, no increased work of breathing GI: Normal bowel sounds, soft, nontender in all 4 quadrants, nondistended MSK: Endorsing pain down his left lower extremity worse with movement Skin: [place], clean, dry, intact. Neuro: Alert and oriented x4 Psych: Calm, cooperative, logical thought process Results & Data Results & Data ([facility]) Vital Signs (Past 12 Hours) Vital Signs Temp Pulse Resp BP Pulse Ox 04/21/21 08:13 81 14 119/76 98 04/20/21 22:52 36.5 C 87 16 123/78 98 Laboratory Results 04/21/21 04/21/21 04/21/21 Range/Units 07:14 06:01 00:09 POC Glucose 165 H 167 H 121 H (70-99) mg/dl Blood Type Antibody Screen 04/20/21 04/20/21 04/20/21 Range/Units 20:34 17:07 15:56 POC Glucose 169 H 114 H (70-99) mg/dl Blood Type O Positive Antibody Screen NEGATIVE 04/20/21 Range/Units 12:00 POC Glucose 215 H (70-99) mg/dl Blood Type Antibody Screen Medications Administered Current Inpatient Medications Atorvastatin Calcium (Atorvastatin 20 Mg Tab) 20 mg PO HS [facility] Stop: 05/19/21 23:29 Last Admin: 04/20/21 20:13 Dose: 20 mg Documented by: Cyclobenzaprine HCl (Cyclobenzaprine Hcl 10 Mg Tab) 10 mg PO TID PRN PRN Reason: muscle spasm Stop: 05/19/21 23:05 Dextrose (Dextrose 50% 50 Ml Syringe) 25 - 50 ml IV UD PRN; Protocol PRN Reason: Hypoglycemia Protocol Stop: 05/19/21 23:05 Glucagon (Glucagon For Inj 1 Mg Vial) 1 mg SQ UD PRN; Protocol PRN Reason: Hypoglycemia Protocol Stop: 05/19/21 23:05 Glucose (Glucose 10 Tabs/Tube) 4 - 8 tabs PO UD PRN; Protocol PRN Reason: Hypoglycemia Protocol Stop: 05/19/21 23:05 Glucose (Glucose 40% Gel 15 Gm Tube) 15 - 30 gm PO UD PRN; Protocol PRN Reason: Hypoglycemia Protocol Stop: 05/19/21 23:05 Insulin Aspart (Insulin Aspart Per Unit) 0 units SC Q6 [facility] Stop: 05/21/21 06:59 Last Admin: 04/21/21 07:03 Dose: 2 units Documented by: Insulin Glargine (Insulin Glargine Solostar 100 Units/Ml 3 Ml Pen) 12 units SC BID [facility] Stop: 05/19/21 23:29 Last Admin: 04/21/21 08:48 Dose: 12 units Documented by: Lisinopril (Lisinopril 2.5 Mg Tab) 2.5 mg PO HS [facility] Stop: 05/19/21 23:29 Last Admin: 04/20/21 20:13 Dose: 2.5 mg Documented by: Miscellaneous (Carbohydrates For Hypoglycemia ) 15 - 30 gm PO UD PRN PRN Reason: Hypoglycemia Protocol Stop: 05/19/21 23:05 Morphine Sulfate (Morphine Sulfate 10 Mg/Ml Carp/Vial) 6 mg IV Q4H PRN PRN Reason: Pain Stop: 05/03/21 23:05 Last Admin: 04/21/21 08:45 Dose: 6 mg Documented by: Oxycodone HCl (Oxycodone Hcl Ir 5 Mg Tab (Immediate Release)) 10 mg PO Q4H PRN PRN Reason: Pain Stop: 05/03/21 23:05 Last Admin: 04/20/21 21:28 Dose: 10 mg Documented by:
[2021-04-21] MEDS ORDERED: LORazepam 1 MG/2 ML VIAL IV STA (11:00)
[2021-04-21] MEDS: oxyCODONE HCL IR 5 MG TAB (IMMEDIATE RELEASE) PO PRN (11:30)
--- NOTE | 2021-04-21 13:37 | Anesthesiology Consultation ---
Date of Service April 21, 2021 Assessment & Plan Chart Review Chart Review: Acceptable Risk for Surgery and Patient NOT seen in Pre Admission Testing Consults Requested none ASA ASA3 Proposed Anesthesia Anesthesia Type: General History Surgery Operation Date: 04/21/21 13:25 Proposed Procedures p L4-L5 Decompression Fusion Spinal Cord Monitoring - Chin Vang DO Height/Weight Height: 6 ft 6 in Weight: 115.2 kg Allergies Allergy/AdvReac Type Severity Reaction Status Date / Time No Known Allergies Allergy Verified 04/19/21 18:51 Medications Home Medications Medication Instructions Recorded Confirmed Last Taken blood-glucose meter (OneTouch #1 ea 12/09/19 03/15/21 Unknown Ultra2 Meter) metformin 850 mg tablet 850 mg PO BID #180 tab 12/23/20 04/19/21 04/19/21 cyclobenzaprine 10 mg tablet 10 mg PO TID PRN #30 tab 02/06/21 04/19/21 Unknown pen needle, diabetic 32 gauge x #100 ea 02/10/21 03/15/21 Unknown 5/32" (BD Ultra-Fine [place] Pen Needle) blood sugar diagnostic #100 ea 02/13/21 03/15/21 Unknown lancets 33 gauge (OneTouch Delica #100 ea 02/13/21 03/15/21 Unknown Lancets) diclofenac sodium 75 mg 75 mg PO BID #60 tab 03/15/21 04/19/21 04/19/21 tablet,delayed release insulin aspar prot-insulin aspart 20 unit SUBCUT BID #15 ml 03/22/21 04/19/21 04/19/21 100 unit/mL (70-30) subcutaneous pen (Novolog Mix 70-30FlexPen U-100) tramadol 50 mg tablet 50 mg PO TID PRN #30 tab 04/04/21 04/19/21 04/10/21 08:00 atorvastatin 20 mg tablet 20 mg PO HS 04/11/21 04/19/21 04/18/21 lisinopril 2.5 mg tablet 2.5 mg PO HS 04/11/21 04/19/21 04/18/21 oxycodone-acetaminophen 5 mg-325 1 - 2 tab PO Q8H PRN #60 tab 04/14/21 04/19/21 04/19/21 13:00 mg tablet (Percocet) insulin degludec 100 See Rx Instructions .ROUTE 04/17/21 04/19/21 04/18/21 unit-liraglutide 3.6 mg/mL(3 mL) .COMPLEX #15 ml subcutaneous pen (Xultophy 100/3.6) prednisone 20 mg tablet 20 mg PO DAILY #40 tab 04/19/21 04/19/21 Unknown Active Medications Generic Name Dose Route Start Last Admin Trade Name Freq PRN Reason Stop Dose Admin Atorvastatin Calcium 20 mg 04/19/21 23:30 04/20/21 20:13 Atorvastatin 20 Mg Tab PO 05/19/21 23:29 20 mg HS BEAU Administration Insulin Aspart 0 units 04/21/21 07:00 04/21/21 12:33 Insulin Aspart Per Unit SC 05/21/21 06:59 Not Given Q6 BEAU Insulin Glargine 12 units 04/19/21 23:30 04/21/21 08:48 Insulin Glargine Solostar 100 Units/Ml 3 Ml Pen SC 05/19/21 23:29 12 units BID BEAU Administration Lisinopril 2.5 mg 04/19/21 23:30 04/20/21 20:13 Lisinopril 2.5 Mg Tab PO 05/19/21 23:29 2.5 mg HS BEAU Administration Morphine Sulfate 6 mg 04/19/21 23:06 04/21/21 08:45 Morphine Sulfate 10 Mg/Ml Carp/Vial IV 05/03/21 23:05 6 mg Q4H PRN Administration Pain Oxycodone HCl 10 mg 04/19/21 23:06 04/21/21 11:30 Oxycodone Hcl Ir 5 Mg Tab (Immediate Release) PO 05/03/21 23:05 10 mg Q4H PRN Administration Pain NPO Date Last Intake of Fluids: 04/20/21 Time Last Intake of Fluids: 23:59 Date Last Intake of Solids: 04/20/21 Time Last Intake of Solids: 19:00 Past Medical History Medical History Diabetes Hearing difficulty Hyperlipidemia Hypertension Postural imbalance Exercise / Class Metabolic Activity II 4-5 Yardwork/Stairs/Walk up hill Past Family History Family History Grandfather Myocardial infarction Coronary heart disease Diabetes Grandmother Myocardial infarction Coronary heart disease Father Diabetes Hypertension Denies family history of Ovarian cancer Prostate cancer Breast cancer Colorectal cancer Past Surgical History Surgical History History of cholecystectomy Past Anesthesia History No Hx of Anesthesia Complications and No Family Hx of Anesthesia Complications History of PONV No Hx of PONV and No Hx of Motion Sickness Social History Smoking Status: Never smoker Hx Alcohol Use: No Hx Substance Use: No Physical Exam Vital Signs Last Vital Signs Temp 36.5 C 04/20/21 22:52 Pulse 81 04/21/21 08:13 Resp 14 04/21/21 08:13 BP 119/76 04/21/21 08:13 Pulse Ox 98 04/21/21 08:13 Testing Laboratory Results 04/19/21 17:15 04/19/21 17:15 Blood Type O Positive 04/20/21 15:56 Antibody Screen NEGATIVE 04/20/21 15:56 04/21/21 04/21/21 04/21/21 12:20 07:14 06:01 POC Glucose 117 H 165 H 167 H Electrocardiogram Date: 04/19/21 Findings: + NSR @ (@ 92;? septal infarct, age ?) Chest X-Ray Date: 04/19/21 Findings: + NAD
[2021-04-21] MEDS ORDERED: MIDAZOLAM HCL 1 MG/ML 2ML VIAL ONE (13:50)
[2021-04-21] MEDS ORDERED: HYDROmorphone INJ 2 MG/ML SYR/VIAL ONE (13:50)
--- NOTE | 2021-04-21 14:30 | History & Physical Bridge Note ---
Date of Service April 21, 2021 History & Physical Bridge Note I have examined the patient, reviewed the History & Physical and in the interval since the performance of the History & Physical I have noted the following changes of clinical significance: no changes noted Decompression fusion L4-L5
[2021-04-21] MEDS ORDERED: PROMETHAZINE HCL 12.5 MG in SODIUM CHLORIDE 0.9% 50 ML IV PRN ×2 (14:36→18:12)
[2021-04-21] MEDS ORDERED: FLUMAZENIL 0.1 MG/1 ML 10 ML VIAL IV PRN (14:36)
[2021-04-21] MEDS ORDERED: ATROPINE SULFATE 0.1 MG/ML 10ML SYR IV PRN (14:36)
[2021-04-21] MEDS ORDERED: ePHEDrine sulfate 50 MG/ML AMP IV PRN (14:36)
[2021-04-21] MEDS ORDERED: fentaNYL citrate 100 MCG/2 ML VIAL IV PRN (14:36)
[2021-04-21] MEDS ORDERED: NALOXONE HCL 0.4 MG/1 ML VIAL/CARP IV PRN ×2 (14:36→18:12)
[2021-04-21] MEDS ORDERED: LABETALOL HCL IV 5 MG/ML 20ML IV PRN (14:36)
[2021-04-21] MEDS ORDERED: HYDROmorphone INJ 1 MG/ML SYRINGE IV PRN ×2 (14:36→18:12)
[2021-04-21] MEDS ORDERED: ONDANSETRON INJ 2 MG/ML 2 ML VIAL IV PRN ×2 (14:36→18:12)
[2021-04-21] MEDS ORDERED: ceFAZolin 2000MG 2,000 MG/15 ML SYR IV SCH (14:40)
[2021-04-21] MEDS ORDERED: BUPIVACAINE 0.5 % 5 MG/1 ML MPF 30ML VIAL ONE (14:57)
[2021-04-21] MEDS ORDERED: ceFAZolin 330 MG/ML 1 GM VIAL ONE (14:57)
[2021-04-21] MEDS ORDERED: EPINEPHrine INJ 1 MG/ML AMP ONE (14:57)
[2021-04-21] MEDS ORDERED: SCOPOLAMINE 1 MG TDSY TD ONE ×2 (15:10→15:17)
[2021-04-21] MEDS ORDERED: KETAMINE 50 MG/5 ML SYRINGE ONE (15:22)
[2021-04-21] MEDS ORDERED: ROCURONIUM BROMIDE 10 MG/ML 5 ML VIAL IV ONE (15:53)
[2021-04-21] MEDS ORDERED: LIDOCAINE 2% 2 ML VIAL/AMP(20MG/ML) INFIL ONE (15:53)
[2021-04-21] MEDS ORDERED: PROPOFOL IV EMULSION 10 MG/ML 20 ML VIAL IV ONE (15:53)
[2021-04-21] MEDS ORDERED: ONDANSETRON INJ 2 MG/ML 2 ML VIAL ONE (15:53)
[2021-04-21] MEDS ORDERED: DEXAMETHASONE SOD INJ 4 MG/ML VIAL ONE (15:53)
[2021-04-21] MEDS ORDERED: NEOSTIGMINE METHYLSULFATE 1 MG/ML 10ML VIAL ONE (15:54)
[2021-04-21] MEDS ORDERED: GLYCOPYRROLATE 0.2 MG/ML VIAL ONE (15:54)
[2021-04-21] MEDS ORDERED: KETOROLAC 30 MG/ML VIAL ONE (15:55)
[2021-04-21] MEDS ORDERED: FLOSEAL HEMOSTATIC MATRIX 10ML TOP ONE (15:59)
--- NOTE | 2021-04-21 16:57 | Operative Report ---
Post Operative Report Pre & Post Diagnosis Operation Date: 04/21/21 13:25 Pre-Op Diagnosis: Far lateral disc herniation L4-L5 Postop diagnosis: Same I identified the patient and participated in the time-out.: Yes Procedure Operation Date: 04/21/21 13:25 Actual Procedures #1 lumbar decompression bilateral medial facetectomies and foraminotomies L4-L5. #2 posterior spinal fusion L4-5. #3 placement posterior instrumentation L4-L5. #4 interbody fusion L4-L5. #5 placement of titanium cage 14 x 26 mm at L4-5. #6 placement locally harvested morselized autograft in the posterior gutters. #7 placement of I factor combined with the toxin interbody space and posterior lateral gutters. Surgeon Chin Vang DO Cook Larder Jamal Hawkins Estimated Blood Loss 100 Findings Consistent with Post-Op Diagnosis Specimens None Indications This is a 40 male presents with severe radiculopathy. After failing course of nonoperative care and having marked decline in status he is here for the above- mentioned procedure. Description of Procedure Patient met with identified informed consent obtained. Patient was then taken to the operative suite underwent ablation placed in prone position on the Smooth table on top of the Bill frame. All bony prominences well-padded eyes inspected to ensure no external pressure placed upon the bed at this point lumbar spine was prepped and draped in normal sterile fashion. Sharp dissection with the assistance of Bovie cautery was performed down to and exposing the lamina and transverse processes of L4 and L5. From caudal to cephalad fashion complete laminectomy of L4 was performed including bilateral medial facetectomies and foraminotomies. Evidence of massive far lateral disc herniation was noted on the left. This is removed in its entirety providing significant decompression of the exiting nerve root. Pedicle screws then placed in L4 and L5 bilaterally with assistance of fluoroscopy and properly sized sanford placed. By way of a transforaminal portion left complete discectomy of L4-L5 was performed endplates curetted to subcortical bleeding bone and a 14 x 26 mm titanium cage filled with I factor tapped in position. The rods then compressed locked in final position bilaterally. Transverse processes of L4 and L5 burred to subcortical being bone. I factor combined with V toss and locally harvested morselized autograft was then placed in the posterior gutters. 15 round ZOHAIB drain inserted. The incision was then closed with 1 Vicryl the fascia 2-0 Vicryl subcutaneously and 4 Monocryl for final skin closure. Steri-Strips and sterile dressings placed. Patient waken taken PACU stable condition. Please note spinal cord monitoring was utilized at the procedure no changes noted. Manuela parks was present at the entire procedure and while the patient positioning complex portions of the surgery and final skin closure. I attest to the content of the Intraoperative Record and any orders documented therein. Any exceptions are noted below.
--- NOTE | 2021-04-21 17:10 | Fluoroscopy Report ---
FL lumbar spine 2-3V CLINICAL HISTORY: L4-L5 DECOMP/FUSION COMPARISON STUDY: Lumbar spine MRI April 13, 2021. FLUOROSCOPY TIME: 20 seconds. FLUOROSCOPIC IMAGES: 2 FINDINGS: Fluoroscopy was provided during L4-L5 discectomy with interbody spacer placement. Posterior decompression is noted with bilateral pedicle screw fusion. IMPRESSION: Fluoroscopy provided during L4-L5 discectomy, posterior decompression and bilateral pedi michel screw fusion. ACT 112: Negative or not required by law. Electronically signed by: Brown Zhou M.D. 04/21/2021 5:08 PM
[2021-04-21] MEDS ORDERED: hydrOXYzine HCl 25 MG TAB PO PRN (18:12)
[2021-04-21] MEDS ORDERED: LORazepam 0.5 MG/1 ML VIAL IV PRN (18:12)
[2021-04-21] MEDS ORDERED: DO NOT ADMINISTER PNEUMOCOCCAL VACCINE PRN (18:12)
[2021-04-21] MEDS ORDERED: traMADol HCL 50 MG TABLET PO PRN (18:12)
[2021-04-21] MEDS ORDERED: bisacodyL 10 MG SUPP PR PRN (18:12)
[2021-04-21] MEDS ORDERED: ACETAMINOPHEN 1,000 MG/100 ML VIAL IV PRN (18:12)
[2021-04-21] MEDS ORDERED: diphenhydrAMINE Capsule 25 MG CAP PO PRN (18:12)
[2021-04-21] MEDS ORDERED: ACETAMINOPHEN 500 MG TAB PO PRN (18:12)
[2021-04-21] MEDS ORDERED: MAGNESIUM HYDROXIDE SUSP 30 ML UDC PO PRN (18:12)
[2021-04-21] MEDS ORDERED: ALUMINUM/MAGNESIUM SUSP 30 ML UDC PO PRN (18:12)
[2021-04-21] MEDS ORDERED: HYDROmorphone INJ 0.5 MG/0.5 ML SYR IV PRN (18:12)
[2021-04-21] MEDS ORDERED: METOCLOPRAMIDE HCL INJ 5 MG/ML 2 ML VIAL IV PRN (18:12)
[2021-04-21] MEDS ORDERED: ONDANSETRON 4 MG OD TAB PO PRN (18:12)
[2021-04-21] MEDS ORDERED: PHARMACY GLYCEMIC MGMT CONSULT PRN (18:12)
[2021-04-21] MEDS ORDERED: FAMOTIDINE 20 MG TAB PO PRN (18:12)
[2021-04-21] MEDS ORDERED: SOD PHOSPHATE/SOD BIPHOSPHATE ENEMA 132 ML BTL PR PRN (18:12)
[2021-04-21] MEDS ORDERED: LORazepam 0.5 MG TAB PO PRN (18:12)
[2021-04-21] MEDS ORDERED: DO NOT ADMINISTER FLU VACCINE PRN (18:12)
--- NOTE | 2021-04-21 18:12 | Anesthesiology Progress Note ---
Date of Service April 21, 2021 Anesthesia Post Procedure Vital Signs Vital Signs: Temp Pulse Pulse Resp BP Pulse Ox 04/21/21 17:50 36.4 C L 86 12 127/71 94 04/21/21 17:40 86 14 124/67 94 04/21/21 17:30 84 14 141/75 H 99 04/21/21 17:20 87 12 145/87 H 100 04/21/21 17:14 36.5 C 91 H 14 128/77 100 04/21/21 14:30 37.5 C 100 H 20 144/81 H 99 04/21/21 08:13 81 14 119/76 98 04/20/21 22:52 36.5 C 87 16 123/78 98 Pain Intensity Lumbar: Pain Intensity: 3 Transfer of Care Handoff Completed per policy Notes Mental Status: alert / awake / arousable Patient Amnestic to Procedure: Yes Nausea / Vomiting: adequately controlled Pain: adequately controlled Airway Patency, RR, SpO2: stable & adequate BP & HR: stable & adequate Hydration State: stable & adequate Anesthetic Complications: no major complications apparent and Pt Satisfied with anesthetic care
[2021-04-21] MEDS: CHECK SCOPOLAMINE PATCH PLACEMENT SCH (18:13)
--- NOTE | 2021-04-21 18:17 | Billing Data ---
Date of Service April 21, 2021 Coding Level of Care Code 94037 Subseq Hosp Care Lvl 2
[2021-04-21] MEDS: SODIUM CHLORIDE 0.9% 1000ML 1,000 ML IV SCH (19:24)
[2021-04-21] MEDS: KETOROLAC 30 MG/ML VIAL IV SCH (20:27)
[2021-04-21] MEDS: DOCUSATE SODIUM/SENNA 50/8.6MG TAB PO SCH (20:28)
[2021-04-21] MEDS: ATORVASTATIN 20 MG TAB PO SCH (20:28)
[2021-04-21] MEDS ORDERED: INSULIN ASPART PER UNIT SC SCH (21:00)
[2021-04-21] MEDS ORDERED: INSULIN GLARGINE SOLOSTAR 100 UNITS/ML 3 ML PEN SC ONE (21:00)
[2021-04-21] MEDS ORDERED: INSULIN ASPART PER UNIT SC ONE (21:15)
[2021-04-21] MEDS: ceFAZolin 2000MG 2,000 MG/15 ML SYR IV SCH (22:11)
[2021-04-22] MEDS: INSULIN ASPART PER UNIT SC SCH ×6 (00:14→21:01)
[2021-04-22] MEDS: CHECK SCOPOLAMINE PATCH PLACEMENT SCH ×4 (00:20→23:35)
[2021-04-22] MEDS: KETOROLAC 30 MG/ML VIAL IV SCH ×3 (01:03→14:59)
[2021-04-22] MEDS: SODIUM CHLORIDE 0.9% 1000ML 1,000 ML IV SCH (01:04)
[2021-04-22] MEDS: POLYETHYLENE (MIRALAX) 17 GM PACK PO SCH ×4 (05:27→23:36)
[2021-04-22] MEDS: ceFAZolin 2000MG 2,000 MG/15 ML SYR IV SCH (06:15)
[2021-04-22] MEDS: oxyCODONE HCL IR 5 MG TAB (IMMEDIATE RELEASE) PO PRN ×3 (06:23→20:26)
[2021-04-22 07:22] LABS: Basophils # (auto) 0.01 K/uL (0-0.2); Basophils % (auto) 0.1 %; Eosinophils # (auto) 0.02 K/uL (0-0.5); Eosinophils % (auto) 0.1 %; Hematocrit (blood only) 37.3 % (42-52); Hemoglobin 12.7 g/dL (14.0-18.0); Immature Granulocytes # (auto) 0.01 K/uL (0.00-0.02); Immature Granulocytes % (auto) 0.1 %; Lymphocytes # (auto) 1.73 K/uL (1.2-3.4); Lymphocytes % (auto) 12.8 %; Mean Corpuscular Hemoglobin 29.5 pg (25-34); Mean Corpuscular Volume 86.7 fL (80-100); Mean Platelet Volume 9.4 fL (7.4-10.4); Monocytes # (auto) 1.54 K/uL (0.11-0.59); Monocytes % (auto) 11.4 %; Neutrophils # (auto) 10.21 K/uL (1.4-6.5); Neutrophils % (auto) 75.5 %; Platelet Count 371 K/uL (130-400); RDW Coefficient of Variation 12.8 % (11.5-14.5); RDW Standard Deviation 41.2 fL (36.4-46.3); White Blood Count 13.52 K/uL (4.8-10.8)
[2021-04-22 07:44] LABS: BUN Creatinine Ratio 30.6 (10-20); Calcium 8.3 mg/dl (8.5-10.1); Creatinine Clr Calc Pharmacy 161.6 ml/min; Est GFR (African American) 124.6 ml/min; Est GFR (Non-African American) 107.5 ml/min; Potassium 4.1 mmol/L (3.5-5.1)
--- NOTE | 2021-04-22 08:24 | Orthopedic Progress Note ---
Date of Service April 22, 2021 Assessment & Plan (1) Left lumbar radiculopathy: Plan: At this time initiate physical therapy monitor his ZOHAIB operatively discharge home in the next few days. Admission and Anticipated Discharge Date Admission Date: April 19, 2021 Subjective Back pain is controlled leg symptoms markedly improved. Physical Exam Physical Exam: Patient is does appear comfortable. Is good strength testing. Results & Data ([facility]) Vital Signs (Past 12 Hours) Vital Signs Temp Pulse Resp BP Pulse Ox 04/22/21 07:05 37.1 C 79 16 116/74 98 04/22/21 04:11 37.0 C 85 16 117/74 98 04/22/21 00:18 37.1 C 86 16 115/71 96 04/21/21 21:10 37.1 C 94 H 16 120/71 96
--- NOTE | 2021-04-22 10:44 | Pharmacy Report ---
Pharmacy Glycemic Short Note 2 - Date of Service April 22, 2021 - Glycemic Short BSG Results (Last 24 hours): 04/21/21 04/21/21 04/21/21 12:20 14:28 17:19 Glucose POC Glucose 117 H 129 H 117 H 04/21/21 04/21/21 04/22/21 20:47 21:01 00:01 Glucose POC Glucose 334 H* 327 H* 258 H 04/22/21 04/22/21 04/22/21 03:51 06:36 08:10 Glucose 128 H POC Glucose 138 H 132 H OUTPATIENT ANTIDIABETIC REGIMEN: * Xultophy 100/3.6/mL -- 0.5mL SQ qHS (50 units insulin degludec) * Novolog 70/30 20 units SQ BID * Metformin 850mg PO BID * HbA1c: 9.3% (03/10/21) -- pt reports several courses of steroids as outpt recently ASSESSMENT: * Mr Coates is a 40yo diabetic male POD #1 s/p spinal procedure with Dr Vang yesterday. * Pt received one dose of IV dexamethasone intraoperatively. * Pt was hyperglycemic at HS last night (BSG 327mg/dL), likely as a result of steroids and an uncovered snack. * Fasting BSG stable this morning. Will transition back to PM Basal dosing, for ease of discharge planning. PLAN FOR INPATIENT GLYCEMIC CONTROL: * Hold outpatient oral diabetes medications * Basal insulin * Lantus 50 units SQ qPM * Bolus insulin * NovoLog per scale ACHS or Q6hrs while NPO * Goal Range: Low 110 mg/dL - High 140 mg/dL * Correction Factor: 15 mg/dL/unit * Nutritional / Prandial insulin per carb ratio of 1 unit per 5 grams CHO consumed PLAN FOR DISCHARGE: * A1c: 9.3% * This indicates suboptimal glycemic control. Goal A1c for 40yo would be <7%. * Pt has been on multiple courses of steroids recently, but last several A1c's appear to be elevated. * Given complexity of patient's outpt regimen, recommend prompt f/u with outpt provider after discharge to work toward optimizing A1c. * Tight glycemic control is especially important post-op, to promote wound healing and discourage infection.
--- NOTE | 2021-04-22 12:19 | Hospitalist Progress Note ---
Date of Service April 22, 2021 Assessment & Plan (1) Hypertension: Plan: 40 yo M presenting with w/ L lumber radiculopathy now s/p lumbar decompression and fusion of L4-5 Left lumbar radiculopathy: Failing all medical therapy at this point. Unable to cope at home. Continue diclofenac 75 mg p.o. twice daily, acetaminophen 1 g p.o. 3 times daily -Oxycodone 10 mg every 4 hourly as needed for breakthrough pain first-line, morphine 6 mg every 4 hourly as needed for breakthrough pain second line -Orthopedics consulted following recommendations -Lateral disc herniation with severe neuroforaminal stenosis L4-L5 -s/p lumbar decompression and fusion L4-L5 - continue to improve pain control with likely d/c in next 1-2 days Insulin dependent diabetes mellitus: HbA1C 9.3 in March Home regimen Novolog 70/30 20 units BID and Xultrophy 100/3.6 0.5ml Holding oral agents -continue lantus 12 units BID -BSG improving on current regimen -Novolog: Goal BSG Range: Low 110 mg/dL, High 140 mg/dL Correction Factor: 23 mg/dL/unit Carbohydrate ratio = 7 g/unit BSGs ACHS if eating, q6h if npo Hyperlipidemia: - Continue atorvastatin 20 mg p.o. at bedtime Hypertension: - Continue lisinopril 2.5 mg p.o. at bedtime FENa: Type II diabetic diet Code Status: Full code DVT PPX: Not indicated given surgery, postop Lovenox Dispo: MedSurg (2) Left lumbar radiculopathy: (3) Diabetes: (4) Hearing difficulty: (5) Hyperlipidemia: (6) Postural imbalance: (7) Degenerative disc disease, lumbar: (8) Lumbar radiculopathy: (9) Intractable neuropathic pain of lumbosacral origin: Admission and Anticipated Discharge Date Admission Date: April 19, 2021 Supervising Physician Co-Signing Physician Notes I personally examined the patient and verified all elena points of history and exam, discussed case, and agree with decision making with Dr Deng Radicular pain better. Still some pain in his hiplateral/posterior. vitals noted nad heent breathing unlabored no accessory muscles good effort skin no rashes no pallor or icterus lumbar radic -improved status post OR Hip painstrongly suspect biomechanical from external rotators/pelvic stabilizer musclesgiven that he is postop day 1, will refrain from any biomechanical assessment/OMT at this timebut will reassess tomorrow uncontrolled DM- 04/20 had extensive discussion on critical role of lifestyle in DM management - he gets it well - actually pre-pandemic was making serious positive lifestyle change and it sounds like had A1c down to 7.2. discussed short term management / snf goals / lifestyle as potentially curative. ideal goal of cutting out simple carbs, exercise daily -- with "real life" caveats that some progress is better than nothing. anticipate he will do well once he recovers from this, etc. sugars good control overall inpt otherwise as above Subjective Lai Coates is doing well today. His pain was 5/10. He had no complaints or questions this morning. Review of Systems Review of Systems: Constitutional: denies fevers, chills Cardiac: denies chest pain, palpitations GI: denies nausea, vomit, constipation, diarrhea Pulm.: denies cough, shortness of breath : denies increased frequency, urgency, dysuria Physical Exam Constitutional: well developed and well nourished; no acute distress Eyes: PERRL, conjunctivae normal, anicteric sclerae ENMT: external ear and nose normal, oropharynx normal Neck: normal visual inspection Respiratory: normal respiratory effort, lungs clear to auscultation Cardiovascular: RRR, no murmur, no edema Gastrointestinal (Abdomen): normal bowel sounds, soft, nontender, no hepatosplenomegaly Musculoskeletal: no cyanosis or clubbing, extremities motor strength 5/5 Skin: no rashes, warm and dry Psychiatric: A+Ox3, euthymic affect Results & Data Results & Data ([facility]) Vital Signs (Past 12 Hours) Vital Signs Temp Pulse Resp BP BP Pulse Ox 04/22/21 11:21 36.3 C L 90 16 109/67 97 04/22/21 07:05 37.1 C 79 16 116/74 98 04/22/21 04:11 37.0 C 85 16 117/74 98 04/22/21 00:18 37.1 C 86 16 115/71 96 CBC Results Results Complete Blood Count Results: RBC 4.30 M/uL (4.7-6.1) L 04/22/21 WBC 13.52 K/uL (4.8-10.8) H 04/22/21 Hgb 12.7 g/dL (14.0-18.0) L 04/22/21 Hct 37.3 % (42-52) L 04/22/21 Plt Count 371 K/uL (130-400) 04/22/21 Chemistry (BMP) Results BMP Results: Sodium 137 mmol/L (136-145) 04/22/21 Potassium 4.1 mmol/L (3.5-5.1) 04/22/21 Chloride 106 mmol/L (98-107) 04/22/21 Carbon Dioxide 26 mmol/L (21-32) 04/22/21 Anion Gap 5 (3-11) 04/22/21 BUN 26 mg/dl (6-23) H 04/22/21 Creatinine 0.85 mg/dl (0.6-1.4) 04/22/21 Glucose 128 mg/dl (70-99(Fasting)) H 04/22/21 Resident Activity Tracking Resident Involvement: Resident Care Provided Care Provided: [facility]
[2021-04-22] MEDS ORDERED: INSULIN GLARGINE SOLOSTAR 100 UNITS/ML 3 ML PEN SC SCH (16:00)
--- NOTE | 2021-04-22 17:49 | Billing Data ---
Date of Service April 22, 2021 Coding Level of Care Code 23236 Subseq Hosp Care Lvl 2
[2021-04-22] MEDS: DOCUSATE SODIUM/SENNA 50/8.6MG TAB PO SCH (20:24)
[2021-04-22] MEDS: ATORVASTATIN 20 MG TAB PO SCH (20:24)
--- NOTE | 2021-04-23 00:43 | Communication Note ---
Date of Service: April 23, 2021 Messaged by nursing about patient appearing pale and weak and with chills upon walking to the bathroom. Assessed patient. Denies any confusion. States he feels better now, still has mild chills. BSG was 100. He received 25mg oxycodone in past 24 hours. Narcan not indicated at this time. Placing hold order on narcotic pain medications and anxiety PRNs. Will defer to day team to restart as appropriate. Denies etoh use hx. If symptoms persist, also consider infection on differential as patient has had recent back surgery 2 days ago.
[2021-04-23] MEDS ORDERED: oxyCODONE HCL IR 5 MG TAB (IMMEDIATE RELEASE) PO STA (05:35)
[2021-04-23] MEDS: POLYETHYLENE (MIRALAX) 17 GM PACK PO SCH ×4 (05:45→23:03)
[2021-04-23] MEDS: CARBOHYDRATES FOR HYPOGLYCEMIA PO PRN ×2 (05:55→06:23)
[2021-04-23 07:42] LABS: Basophils # (auto) 0.02 K/uL (0-0.2); Basophils % (auto) 0.1 %; Eosinophils # (auto) 0.09 K/uL (0-0.5); Eosinophils % (auto) 0.7 %; Hematocrit (blood only) 33.7 % (42-52); Hemoglobin 11.7 g/dL (14.0-18.0); Immature Granulocytes # (auto) 0.04 K/uL (0.00-0.02); Immature Granulocytes % (auto) 0.3 %; Lymphocytes # (auto) 1.52 K/uL (1.2-3.4); Lymphocytes % (auto) 11.2 %; Mean Corpuscular Hemoglobin 29.8 pg (25-34); Mean Corpuscular Hgb Conc 34.7 g/dL (32-36); Monocytes # (auto) 1.64 K/uL (0.11-0.59); Neutrophils # (auto) 10.32 K/uL (1.4-6.5); Neutrophils % (auto) 75.7 %; Platelet Count 301 K/uL (130-400); RDW Coefficient of Variation 12.8 % (11.5-14.5); RDW Standard Deviation 40.1 fL (36.4-46.3); Red Blood Count 3.92 M/uL (4.7-6.1); White Blood Count 13.63 K/uL (4.8-10.8)
[2021-04-23 08:15] LABS: BUN Creatinine Ratio 33.8 (10-20); Calcium 8.5 mg/dl (8.5-10.1); Est GFR (African American) 136.5 ml/min; Est GFR (Non-African American) 117.8 ml/min; Potassium 3.8 mmol/L (3.5-5.1)
[2021-04-23] MEDS: CHECK SCOPOLAMINE PATCH PLACEMENT SCH ×3 (09:04→23:02)
--- NOTE | 2021-04-23 09:51 | Pharmacy Report ---
Pharmacy Glycemic Short Note 2 - Date of Service April 23, 2021 - Glycemic Short BSG Results (Last 24 hours): 04/22/21 04/22/21 04/22/21 12:19 17:21 20:29 Glucose POC Glucose 182 H 153 H 114 H 04/22/21 04/23/21 04/23/21 23:53 05:49 05:51 Glucose POC Glucose 100 H 64 L* 57 L* 04/23/21 04/23/21 04/23/21 06:15 06:44 07:13 Glucose 112 H POC Glucose 69 L* 115 H 04/23/21 08:22 Glucose POC Glucose 108 H OUTPATIENT ANTIDIABETIC REGIMEN: * Xultophy 100/3.6/mL -- 0.5mL SQ qHS (50 units insulin degludec) * Novolog 70/30 20 units SQ BID * Metformin 850mg PO BID * HbA1c: 9.3% (03/10/21) -- pt reports several courses of steroids as outpt recently ASSESSMENT: 04/23/21: * BSGs were well-controlled yesterday. * Pt had an episode of symptomatic hypoglycemia this morning. Suspect that this was d/t low diet intake yesterday. * Lantus dose reduced for this evening. 04/22 * Mr Coates is a 40yo diabetic male POD #1 s/p spinal procedure with Dr Vang yesterday. * Pt received one dose of IV dexamethasone intraoperatively. * Pt was hyperglycemic at HS last night (BSG 327mg/dL), likely as a result of steroids and an uncovered snack. * Fasting BSG stable this morning. Will transition back to PM Basal dosing, for ease of discharge planning. PLAN FOR INPATIENT GLYCEMIC CONTROL: * Hold outpatient oral diabetes medications * Basal insulin -- decrease * Lantus 40 units SQ qPM * Bolus insulin * NovoLog per scale ACHS or Q6hrs while NPO * Goal Range: Low 110 mg/dL - High 140 mg/dL * Correction Factor: 15 mg/dL/unit * Nutritional / Prandial insulin per carb ratio of 1 unit per 5 grams CHO consumed PLAN FOR DISCHARGE: * A1c: 9.3% * This indicates suboptimal glycemic control. Goal A1c for 40yo would be <7%. * Pt has been on multiple courses of steroids recently, but last several A1c's appear to be elevated. * Given complexity of patient's outpt regimen, recommend prompt f/u with outpt provider after discharge to work toward optimizing A1c. * Tight glycemic control is especially important post-op, to promote wound healing and discourage infection.
--- NOTE | 2021-04-23 10:08 | Hospitalist Progress Note ---
Date of Service April 23, 2021 Assessment & Plan (1) Left lumbar radiculopathy: Plan: 40 yo M presenting with w/ L lumber radiculopathy now s/p lumbar decompression and fusion of L4-5 Left lumbar radiculopathy: Failing all medical therapy at this point. Unable to cope at home. -POD #2 from -Continue diclofenac 75 mg p.o. twice daily, acetaminophen 1 g p.o. 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 at bedtime Hypertension: - Continue lisinopril 2.5 mg p.o. at bedtime Diet: Type II diabetic diet Code Status: Full code DVT PPX: postop Lovenox (2) Hypertension: (3) Diabetes: (4) Hearing difficulty: (5) Hyperlipidemia: (6) Postural imbalance: (7) Degenerative disc disease, lumbar: (8) Lumbar radiculopathy: (9) Intractable neuropathic pain of lumbosacral origin: Admission and Anticipated Discharge Date Admission Date: April 19, 2021 Supervising Physician Co-Signing Physician Notes I personally examined the patient and verified all elena points of history and exam, discussed case, and agree with decision making with Dr Steinberg Radicular pain still better. Still some pain in his hiplateral/posterior. taught stretches vitals noted nad heent breathing unlabored no accessory muscles good effort skin no rashes no pallor or icterus. L leg stiff ROM with some pain at greater trochanter and buttock/lateral thigh wiht internal rotation - taught, but did not really perform (due to being so closely post op), post-isometric relaxation lumbar radiculopathy -now post op day 2 -radicular pain better -continue PT Hip pain -muscular at hip -taught postisometric stretch -he will do at home uncontrolled DM -coached on lifestyle change -he shows good recognition -has done well before chills -seems like low sugar -no septic signs or symptoms -serial exams otherwise as above Subjective Overnight, patient had some increased back pains. Additionally, had event with concerns for fevers and chills but afebrile at that time. Resolved as of this morning with no further intervention. Describes that during that time he just felt an intense cold but otherwise felt like his normal self. Review of Systems Review of Systems: All systems reviewed & are unremarkable except as noted in Subjective Physical Exam Constitutional: WD/WN, vitals as above Eyes: PERRL, conjunctivae normal, anicteric sclerae Respiratory: normal respiratory effort; no respiratory distress, no labored breathing and no cough Auscultation: no rhonchi and no wheezes Cardiovascular: Rate/Rhythm: regular rate and regular rhythm Heart Sounds: no gallop, no murmur and no cardiac rub Extremities: no edema Gastrointestinal (Abdomen): Inspection/Auscultation: normal bowel sounds; ab domen not distended Percussion/Palpation: abdomen soft; abdomen nontender and no guarding Skin: no rashes, warm and dry Psychiatric: Orientation: alert and oriented x 3 Results & Data Results & Data ([facility]) Vital Signs (Past 12 Hours) Vital Signs Temp Pulse Resp BP BP Pulse Ox 04/23/21 07:23 36.9 C 91 H 18 117/71 96 04/22/21 23:54 36.5 C 87 16 156/83 H 100 Laboratory Results 04/23/21 04/23/21 04/23/21 Range/Units 12:13 08: 07:13 WBC (4.8-10.8) K/uL RBC (4.7-6.1) M/uL Hgb (14.0-18.0) g/dL Hct (42-52) % MCV (80-100) fL MCH (25-34) pg MCHC (32-36) g/dL RDW Std Deviation (36.4-46.3) fL RDW Coeff of Domenic (11.5-14.5) % Plt Count (130-400) K/uL MPV (7.4-10.4) fL Immature Gran % (Auto) % Neut % (Auto) % Lymph % (Auto) % [place] % (Auto) % Eos % (Auto) % Baso % (Auto) % Neut # (Auto) (1.4-6.5) K/uL Lymph # (Auto) (1.2-3.4) K/uL [place] # (Auto) (0.11-0.59) K/uL Eos # (Auto) (0-0.5) K/uL Baso # (Auto) (0-0.2) K/uL Immature Gran # (Auto) (0.00-0.02) K/uL Sodium (136-145) mmol/L Potassium (3.5-5.1) mmol/L Chloride (98-107) mmol/L Carbon Dioxide (21-32) mmol/L Anion Gap (3-11) BUN (6-23) mg/dl Creatinine (0.6-1.4) mg/dl Est Cr Clr Drug Dosing ml/min Est GFR ( Amer) ml/min Est GFR (Non-Af Amer) ml/min BUN/Creatinine Ratio (10-20) Glucose (70-99(Fasting)) mg/dl POC Glucose 136 H 108 H (70-99) mg/dl Calcium (8.5-10.1) mg/dl TSH (0.300-4.500) uIu/ml Cortisol AM Sample 14.34 (6.2-22.6) mcg/dl 04/23/21 04/23/21 04/23/21 Range/Units 07:13 07:13 07:13 WBC 13.63 H (4.8-10.8) K/uL RBC 3.92 L (4.7-6.1) M/uL Hgb 11.7 L (14.0-18.0) g/dL Hct 33.7 L (42-52) % MCV 86.0 (80-100) fL MCH 29.8 (25-34) pg MCHC 34.7 (32-36) g/dL RDW Std Deviation 40.1 (36.4-46.3) fL RDW Coeff of Domenic 12.8 (11.5-14.5) % Plt Count 301 (130-400) K/uL MPV 9.0 (7.4-10.4) fL Immature Gran % (Auto) 0.3 % Neut % (Auto) 75.7 % Lymph % (Auto) 11.2 % [place]alle % (Auto) 12.0 % Eos % (Auto) 0.7 % Baso % (Auto) 0.1 % Neut # (Auto) 10.32 H (1.4-6.5) K/uL Lymph # (Auto) 1.52 (1.2-3.4) K/uL [place] # (Auto) 1.64 H (0.11-0.59) K/uL Eos # (Auto) 0.09 (0-0.5) K/uL Baso # (Auto) 0.02 (0-0.2) K/uL Immature Gran # (Auto) 0.04 H (0.00-0.02) K/uL Sodium 137 (136-145) mmol/L Potassium 3.8 (3.5-5.1) mmol/L Chloride 105 (98-107) mmol/L Carbon Dioxide 26 (21-32) mmol/L Anion Gap 6 (3-11) BUN 23 (6-23) mg/dl Creatinine 0.68 (0.6-1.4) mg/dl Est Cr Clr Drug Dosing 202.0 ml/min Est GFR ( Amer) 136.5 ml/min Est GFR (Non-Af Amer) 117.8 ml/min BUN/Creatinine Ratio 33.8 H (10-20) Glucose 112 H (70-99(Fasting)) mg/dl POC Glucose (70-99) mg/dl Calcium 8.5 (8.5-10.1) mg/dl TSH 0.589 (0.300-4.500) uIu/ml Cortisol AM Sample (6.2-22.6) mcg/dl 04/23/21 04/23/21 04/23/21 Range/Units 06:44 06:15 05:51 WBC (4.8-10.8) K/uL RBC (4.7-6.1) M/uL Hgb (14.0-18.0) g/dL Hct (42-52) % MCV (80-100) fL MCH (25-34) pg MCHC (32-36) g/dL RDW Std Deviation (36.4-46.3) fL RDW Coeff of Domenic (11.5-14.5) % Plt Count (130-400) K/uL MPV (7.4-10.4) fL Immature Gran % (Auto) % Neut % (Auto) % Lymph % (Auto) % [place] % (Auto) % Eos % (Auto) % Baso % (Auto) % Neut # (Auto) (1.4-6.5) K/uL Lymph # (Auto) (1.2-3.4) K/uL [place] # (Auto) (0.11-0.59) K/uL Eos # (Auto) (0-0.5) K/uL Baso # (Auto) (0-0.2) K/uL Immature Gran # (Auto) (0.00-0.02) K/uL Sodium (136-145) mmol/L Potassium (3.5-5.1) mmol/L Chloride (98-107) mmol/L Carbon Dioxide (21-32) mmol/L Anion Gap (3-11) BUN (6-23) mg/dl Creatinine (0.6-1.4) mg/dl Est Cr Clr Drug Dosing ml/min Est GFR ( Amer) ml/min Est GFR (Non-Af Amer) ml/min BUN/Creatinine Ratio (10-20) Glucose (70-99(Fasting)) mg/dl POC Glucose 115 H 69 L* 57 L* (70-99) mg/dl Calcium (8.5-10.1) mg/dl TSH (0.300-4.500) uIu/ml Cortisol AM Sample (6.2-22.6) mcg/dl 04/23/21 04/22/21 04/22/21 Range/Units 05:49 23:53 20:29 WBC (4.8-10.8) K/uL RBC (4.7-6.1) M/uL Hgb (14.0-18.0) g/dL Hct (42-52) % MCV (80-100) fL MCH (25-34) pg MCHC (32-36) g/dL RDW Std Deviation (36.4-46.3) fL RDW Coeff of Domenic (11.5-14.5) % Plt Count (130-400) K/uL MPV (7.4-10.4) fL Immature Gran % (Auto) % Neut % (Auto) % Lymph % (Auto) % [place] % (Auto) % Eos % (Auto) % Baso % (Auto) % Neut # (Auto) (1.4-6.5) K/uL Lymph # (Auto) (1.2-3.4) K/uL [place] # (Auto) (0.11-0.59) K/uL Eos # (Auto) (0-0.5) K/uL Baso # (Auto) (0-0.2) K/uL Immature Gran # (Auto) (0.00-0.02) K/uL Sodium (136-145) mmol/L Potassium (3.5-5.1) mmol/L Chloride (98-107) mmol/L Carbon Dioxide (21-32) mmol/L Anion Gap (3-11) BUN (6-23) mg/dl Creatinine (0.6-1.4) mg/dl Est Cr Clr Drug Dosing ml/min Est GFR ( Amer) ml/min Est GFR (Non-Af Amer) ml/min BUN/Creatinine Ratio (10-20) Glucose (70-99(Fasting)) mg/dl POC Glucose 64 L* 100 H 114 H (70-99) mg/dl Calcium (8.5-10.1) mg/dl TSH (0.300-4.500) uIu/ml Cortisol AM Sample (6.2-22.6) mcg/dl 04/22/21 Range/Units 17:21 WBC (4.8-10.8) K/uL RBC (4.7-6.1) M/uL Hgb (14.0-18.0) g/dL Hct (42-52) % MCV (80-100) fL MCH (25-34) pg MCHC (32-36) g/dL RDW Std Deviation (36.4-46.3) fL RDW Coeff of Domenic (11.5-14.5) % Plt Count (130-400) K/uL MPV (7.4-10.4) fL Immature Gran % (Auto) % Neut % (Auto) % Lymph % (Auto) % [place] % (Auto) % Eos % (Auto) % Baso % (Auto) % Neut # (Auto) (1.4-6.5) K/uL Lymph # (Auto) (1.2-3.4) K/uL [place] # (Auto) (0.11-0.59) K/uL Eos # (Auto) (0-0.5) K/uL Baso # (Auto) (0-0.2) K/uL Immature Gran # (Auto) (0.00-0.02) K/uL Sodium (136-145) mmol/L Potassium (3.5-5.1) mmol/L Chloride (98-107) mmol/L Carbon Dioxide (21-32) mmol/L Anion Gap (3-11) BUN (6-23) mg/dl Creatinine (0.6-1.4) mg/dl Est Cr Clr Drug Dosing ml/min Est GFR ( Amer) ml/min Est GFR (Non-Af Amer) ml/min BUN/Creatinine Ratio (10-20) Glucose (70-99(Fasting)) mg/dl POC Glucose 153 H (70-99) mg/dl Calcium (8.5-10.1) mg/dl TSH (0.300-4.500) uIu/ml Cortisol AM Sample (6.2-22.6) mcg/dl Medications Administered Current Inpatient Medications Acetaminophen (Acetaminophen 500 Mg Tab) 1,000 mg PO Q8H PRN PRN Reason: MILD Pain Scale 1,2,3 & Pre PT Stop: 05/21/21 18:11 Al Hydrox/Mg Hydrox/Simethicone (Aluminum/Magnesium Susp 30 Ml Udc) 30 ml PO Q6H PRN PRN Reason: Dyspepsia Stop: 05/21/21 18:11 Atorvastatin Calcium (Atorvastatin 20 Mg Tab) 20 mg PO HS BEAU Stop: 05/19/21 23:29 Last Admin: 04/22/21 20:24 Dose: 20 mg Documented by: Bisacodyl (Bisacodyl 10 Mg Supp) 10 mg ME DAILY PRN PRN Reason: Constipation Stop: 05/21/21 18:11 Cyclobenzaprine HCl (Cyclobenzaprine Hcl 10 Mg Tab) 10 mg PO TID PRN PRN Reason: muscle spasm Stop: 05/19/21 23:05 Dextrose (Dextrose 50% 50 Ml Syringe) 25 - 50 ml IV UD PRN; Protocol PRN Reason: Hypoglycemia Protocol Stop: 05/19/21 23:05 Famotidine (Famotidine 20 Mg Tab) 20 mg PO Q12H PRN PRN Reason: Dyspepsia Stop: 05/21/21 18:11 Glucagon (Glucagon For Inj 1 Mg Vial) 1 mg SQ UD PRN; Protocol PRN Reason: Hypoglycemia Protocol Stop: 05/19/21 23:05 Glucose (Glucose 10 Tabs/Tube) 4 - 8 tabs PO UD PRN; Protocol PRN Reason: Hypoglycemia Protocol Stop: 05/19/21 23:05 Glucose (Glucose 40% Gel 15 Gm Tube) 15 - 30 gm PO UD PRN; Protocol PRN Reason: Hypoglycemia Protocol Stop: 05/19/21 23:05 Hydromorphone HCl (Hydromorphone Inj 0.5 Mg/0.5 Ml Syr) 0.5 mg IV Q3H PRN PRN Reason: MODERATE Pain (Scale 4,5,6) & Pre PT Stop: 05/05/21 18:11 Hydromorphone HCl (Hydromorphone Inj 1 Mg/Ml Syringe) 1 mg IV Q3H PRN PRN Reason: SEVERE Pain (Scale 7,8,9,10) Stop: 05/05/21 18:11 Hydroxyzine HCl (Hydroxyzine Hcl 25 Mg Tab) 25 mg PO Q8H PRN PRN Reason: Anxiety Stop: 05/21/21 18:11 Promethazine HCl 12.5 mg/ (Sodium Chloride) 50.5 mls @ 202 mls/hr IV Q6H PRN PRN Reason: Nausea &/or Vomiting Stop: 05/21/21 18:11 Acetaminophen (Ofirmev) 1,000 mg in 100 mls @ 400 mls/hr IV Q8H PRN PRN Reason: Pain Rating 1-3 & Pre PT Stop: 04/24/21 18:11 Influenza Virus Vaccine Quadrival (Do Not Administer Flu Vaccine) 1 ea N/A PRN PRN PRN Reason: Notification Stop: 05/21/21 18:11 Insulin Aspart (Insulin Aspart Per Unit) 0 units SC ACHS [facility] Stop: 05/21/21 20:59 Last Admin: 04/23/21 12:57 Dose: 6 units Documented by: Insulin Glargine (Insulin Glargine Solostar 100 Units/Ml 3 Ml Pen) 40 units SC PM BEAU; Protocol Stop: 05/23/21 20:59 Magnesium Hydroxide (Magnesium Hydroxide Susp 30 Ml Udc) 30 ml PO Q24H PRN PRN Reason: Constipation Stop: 05/21/21 18:11 Metoclopramide HCl (Metoclopramide Hcl Inj 5 Mg/Ml 2 Ml Vial) 10 mg IV Q6H PRN PRN Reason: Nausea &/or Vomiting Stop: 05/21/21 18:11 Miscellaneous (Carbohydrates For Hypoglycemia ) 15 - 30 gm PO UD PRN PRN Reason: Hypoglycemia Protocol Stop: 05/19/21 23:05 Last Admin: 04/23/21 06:23 Dose: 15 gm Documented by: Miscellaneous (Check Scopolamine Patch Placement) 1 ea N/A QS BEAU Stop: 04/24/21 05:59 Last Admin: 04/23/21 15:58 Dose: 1 ea Documented by: Miscellaneous Information (Pharmacy Glycemic Mgmt Consult) 1 ea N/A UD PRN PRN Reason: Consult Stop: 05/21/21 18:11 Naloxone HCl (Naloxone Hcl 0.4 Mg/1 Ml Vial/Carp) 0.1 mg IV Q5M PRN PRN Reason: Oversedation/Resp depression Stop: 05/21/21 18:11 Ondansetron HCl (Ondansetron Inj 2 Mg/Ml 2 Ml Vial) 4 mg IV Q6H PRN PRN Reason: Nausea &/or Vomiting Stop: 05/21/21 18:11 Ondansetron HCl (Ondansetron 4 Mg Od Tab) 4 mg PO Q6H PRN PRN Reason: Nausea Stop: 05/21/21 18:11 Oxycodone HCl (Oxycodone Hcl Ir 5 Mg Tab (Immediate Release)) 5 - 10 mg PO Q4H PRN PRN Reason: Pain & Pre PT Stop: 05/05/21 18:11 Last Admin: 04/23/21 10:53 Dose: 5 mg Documented by: Pneumococcal Polyvalent Vaccine (Do Not Administer Pneumococcal Vaccine) 1 ea N/A PRN PRN PRN Reason: Notification Stop: 05/21/21 18:11 Polyethylene Glycol (Polyethylene (Miralax) 17 Gm Pack) 17 gm PO Q6 [facility] Stop: 05/22/21 05:59 Last Admin: 04/23/21 12:30 Dose: 17 gm Documented by: Senna/Docusate Sodium (Docusate Sodium/Senna 50/8.6mg Tab) 2 tab PO HS BEAU Stop: 05/21/21 20:59 Last Admin: 04/22/21 20:24 Dose: 2 tab Documented by: Sodium Biphosphate/Sodium Phosphate (Sod Phosphate/Sod Biphosphate Enema 132 Ml Btl) 132 ml ME ONE PRN PRN Reason: Constipation Stop: 05/21/21 18:11 Tramadol HCl (Tramadol Hcl 50 Mg Tablet) 50 - 100 mg PO Q4H PRN PRN Reason: Moderate-Severe pain & Pre PT Stop: 05/21/21 18:11 Resident Activity Tracking Resident Involvement: Resident Care Provided Care Provided: Adult Hospital Medicine
[2021-04-23] MEDS: INSULIN ASPART PER UNIT SC SCH ×4 (10:30→20:44)
[2021-04-23] MEDS: oxyCODONE HCL IR 5 MG TAB (IMMEDIATE RELEASE) PO PRN ×3 (10:53→23:02)
--- NOTE | 2021-04-23 12:07 | Orthopedic Progress Note ---
Date of Service April 23, 2021 Assessment & Plan (1) Left lumbar radiculopathy: Plan: At this time his back pain is still quite limited nature. Is able to tolerate therapy but requires assistance. We will monitor him over the next 24 hours. Hopefully he will be able to discharge home tomorrow. Admission and Anticipated Discharge Date Admission Date: April 19, 2021 Subjective Back pain is controlled leg symptoms markedly improved Physical Exam Physical Exam: Patient is in some distress secondary to his back pain. He does have good strength testing. Results & Data ([facility]) Vital Signs (Past 12 Hours) Vital Signs Temp Pulse Resp BP Pulse Ox 04/23/21 07:23 36.9 C 91 H 18 117/71 96
[2021-04-23] MEDS ORDERED: dexAMETHasone 8 MG in SYRINGE 0 ML IV ONE (12:15)
--- NOTE | 2021-04-23 15:44 | Billing Data ---
Date of Service April 23, 2021 Coding Level of Care Code 24174 Subseq Hosp Care Lvl 2
[2021-04-23] MEDS: DOCUSATE SODIUM/SENNA 50/8.6MG TAB PO SCH (20:23)
[2021-04-23] MEDS: ATORVASTATIN 20 MG TAB PO SCH (20:23)
[2021-04-23] MEDS ORDERED: INSULIN GLARGINE SOLOSTAR 100 UNITS/ML 3 ML PEN SC SCH (21:00)
[2021-04-24] MEDS: POLYETHYLENE (MIRALAX) 17 GM PACK PO SCH ×2 (06:01→12:45)
--- NOTE | 2021-04-24 07:02 | Hospitalist Progress Note ---
Date of Service April 24, 2021 Assessment & Plan Admission and Anticipated Discharge Date Admission Date: April 19, 2021 Results & Data Results & Data ([facility]) Vital Signs (Past 12 Hours) Vital Signs Temp Pulse Resp BP Pulse Ox 04/23/21 22:25 36.4 C L 77 18 132/76 97
[2021-04-24] MEDS: oxyCODONE HCL IR 5 MG TAB (IMMEDIATE RELEASE) PO PRN ×2 (08:14→14:29)
[2021-04-24] MEDS: INSULIN ASPART PER UNIT SC SCH ×2 (08:59→12:44)
[2021-04-24] MEDS ORDERED: HYDROmorphone INJ 0.5 MG/0.5 ML SYR IV PRN (09:27)
[2021-04-24] MEDS ORDERED: ACETAMINOPHEN 500 MG TAB PO SCH (09:45)
--- NOTE | 2021-04-24 13:07 | Orthopedic Progress Note ---
Date of Service April 24, 2021 Assessment & Plan (1) Lumbar disc herniation with radiculopathy: Plan: At this time is progressed appropriately. ZOHAIB drain decreased appropriately. Pain well controlled. Subsequent discharge home. Discharge orders instructions from chart for further review. Admission and Anticipated Discharge Date Admission Date: April 19, 2021 Subjective Patient's back pain is markedly improved today. He continues to have improvement of his left leg symptoms. He is tolerating physical therapy well. Physical Exam Physical Exam: On exam is good strength testing appears comfortable. Results & Data ([facility]) Vital Signs (Past 12 Hours) Vital Signs Temp Pulse Pulse Pulse Resp BP BP 04/24/21 11:15 36.8 C 84 76 84 18 117/71 121/72 04/24/21 07:57 36.8 C 76 18 121/72 Pulse Ox 04/24/21 11:15 98 04/24/21 07:57 98
--- NOTE | 2021-04-24 13:30 | Discharge Summary ---
Date of Service April 24, 2021 Admission HPI Per Admitting Provider Lai Coates is a 40 year old male who presents to the ER with back pain. He reports this has been going on since January since he had COVID-19 but progressively getting worse. It is mainly a radiating pain from his lower back to left hip/buttocks radiating down lateral leg. Associated lateral hip clicking. Exacerbated by standing or walking. Severity currently 5/10 while lying still, 10/10 on arrival to the ER. Associated numbness in his left 1st toe and milder on the dorsal aspect of his left foot. Slightly more constipation with pain medications but no perianal numbness or bowel/urine incontinence. He has been seeing his PCP for this and organized PT which made his pain worse after 2.5 weeks he had to stop and PT recommended getting an MRI of his back. Tried chiropractor, ice, heat, two courses of steroids. Started on diclofenac twice a day which has helped only a little. Using Percocet for breakthrough pain but this is also no longer working. He has an appointment set up for Dr Vang's PA on Apr and pain clinic on May. He was a lot worse today and lying o the floor, crying unable to get up therefore decided to come to the ER. Works at [employer] and unable to work as most of his job is lifting heavy boxes. Recent MRI confirmed right paracentral disc protrusion/herniation at L5-S1. ER provider discussed with ortho spine and recommended admission under medicine due to his diabetes with ortho spine consult. Admission Exam Per Admitting Provider Constitutional: WD/WN, vitals as above Eyes: + anicteric sclerae; normal pupil size ENMT: external ear and nose normal, oropharynx normal Neck: trachea midline, no thyromegaly Respiratory: normal respiratory effort, lungs clear to auscultation Cardiovascular: RRR, no murmur, no edema Gastrointestinal (Abdomen): normal bowel sounds, soft, nontender, no hepatosplenomegaly Musculoskeletal: no cyanosis or clubbing, extremities motor strength 5/5 Spine: + paraspinal tenderness (left) Skin: no rashes, warm and dry Neurologic: moves all extremities and awake; no focal motor deficits and not confused Motor/Sensory: + sensory deficit (dorsal left foot) Psychiatric: A+Ox3, euthymic affect Principal Diagnosis L4-L5 disc herniation s/p L4-L5 fusion Discharge Exam Constitutional: well-appearing, no acute distress CV: regular rhythm, no murmur appreciated, extremities well-perfused, no LE edema Resp: CTABL, no wheezes/rales/rhonchi appreciated, no increased work of breathing GI: soft, nondistended, nontender, BS normoactive MSK: back surgical dressing CDI Skin: warm, dry, no rash appreciated Neuro: alert, oriented, no focal neurologic deficit appreciated Discharge Data Allergies Allergy/AdvReac Type Severity Reaction Status Date / Time No Known Allergies Allergy Verified 04/19/21 18:51 Consultations 04/19/21 17:42 Consult Orthopedic Surgery Stat ED Decision to Admit Stat Procedures Performed Operation Date: 04/21/21 13:25 Actual Procedures p L4-L5 Decompression Fusion Spinal Cord Monitoring, Application of Vitoss and I-Factor. (Not Applicable) - Chin Vang DO Ordered Studies 04/21/21 [place] lumbar spine 2-3V Routine Hospital Course (1) Left lumbar radiculopathy: L4-L5 disc herniation s/p lumbar decompression and L4-L5 fusion Imaging performed on admission revealed an L4-L5 disc herniation. Orthopedics was consulted and performed a lumbar decompression and L4-L5 fusion (04/21/21). Patient tolerated the procedure well. Pain control was achieved with diclofenac 75mg PO bid, APAP 1g tid, and oxycodone 10mg q4h prn for breakthrough pain. Patient engaged in PT/OT while inpatient, and his mobility was intact. Patient was discharged on hospital day six in stable condition. PCP follow-up was encour aged, and orthopedics follow-up was arranged prior to discharge. Pain control was prescribed prior to discharge, as was a bowel regimen for use while still on opioid painkillers. DM2 Patient's home DM2 regimen was held on admission. BSG was controlled with sliding-scale insulin. HbA1c was 9.3% (03/2021). Patient's home regimen was restarted upon discharge. HTN Patient's home lisinopril was continued during this hospitalization. HLD Patient's home atorvastatin was continued during this hospitalization. Total Time Total Time Spent Total Time Spent (In Minutes): see attending documentation Discharge Plan Discharge Items Patient Disposition: Home - Self-Care Reason For Visit: LEFT LUMBARSACRAL RADICULOPATHY Discharge Diagnosis: Lumbar disc herniation with radiculopathy Activity: As commented below Non-emergency contact: Primary Care Provider Call non-emergency contact if: you have any medication questions Follow-up/Referrals: Jasper Madison DO [Primary Care Provider] - Chin Vang DO [Surgeon] - 05/05/21 11:15 am (APPT WITH [facility]) Diet: Regular Addtl Attending Provider Instructions: ACTIVITY RECOMMENDATIONS: SELF CARE INSTRUCTIONS AFTER THORACIC/LUMBAR FUSIONS 1. You may walk to your tolerance. It is good exercise for your legs and back. Expect some back and intermittent leg aches and pains. 2. You may perform "counter-top" level activities (make a sandwich, kelly with a project, etc.). 3. No bending or lifting of more than 10 pounds or back twisting of any nature (roll like a log when turning in bed). 4. You may ride in a car for 20-30 minutes at a time. No driving until after your first visit with your doctor. 5. Frequent changes of position and restricting sitting to 30 minutes at a time will help limit the amount of back spasms and stiffness you may experience. 6. You may discontinue the use of ambulatory aids (cane, crutches, etc.) once your strength and confidence allow. 7. You may marine structural designer the shower and let water strike your incision when you arrive home at least once daily. Do not take a tub bath, sit in a hot tub or go into a swimming pool until after your first recheck in the office. SPECIAL CARE INSTRUCTIONS: VERY IMPORTANT TO READ AND REVIEW A. Your surgical incision has been closed with a cosmetic suture under the skin that will dissolve in about 6 weeks. In 14 days, you can use a pair of clean scissors and cut the suture that is left outside of the skin at the ends of your incision. 1. The small skin tapes can be removed 7 days after surgery if they have not fallen off by that point. 2. You may keep the wound open to air as much as possible to promote healing after post-op day number 5 unless told otherwise by your doctor. 3. If you think the wound looks like it is becoming infected (redness or worsening drainage) and/or you are experiencing fever, chill or worsening back pain and muscle spasms, contact the office so that we may evaluate you as soon as possible. B. Complications are uncommon, but please contact us if you have any signs or symptoms of: 1. wound infection (fever higher than 102.5 degrees F, redness, separation of wound, drainage, or increasing pain from the incision) 2. blood clots in legs (pain, swelling, redness and warmth in legs) 3. urinary tract infection (fever higher than 102.5 degrees F, burning upon urination or increased frequency of urination) 4. nerve problems (inability to walk on your toes or heels, numbness, loss of bowel or bladder control) 5. any other symptoms that concern you C. Please call the office at if you have any concerns or questions about your operation or recovery. D. No smoking! Smoking drastically decreases the chance of a solid fusion. E. Do not take any anti-inflammatory medications (Indocin, Advil, Motrin, Aspirin, Naprosyn, etc.) as these may inhibit the chance of a solid fusion. Tylenol is okay to take for pain. MANAGING PAIN AFTER SPINAL SURGERY 1. Narcotic medication is intended for short-term use and will be provided for surgical pain. Surgical pain usually lasts for a period of 4-6 weeks. Narcotic medication includes Percocet, Vicodin, Darvocet, Tylenol #3 or Lortab. 2. Longer-term pain is more appropriately treated with non-narcotic medication such as Tylenol ES. 3. Muscle spasm is not appropriately treated with narcotics. Muscle relaxers such as Soma, Flexeril or Skelaxin can be used along with Tylenol ES. 4. Remember that we all live with some "aches and pains". This is not unusual or uncommon after an injury or as we get older. a. Back pain is expected and may include muscle spasms for 4 to 6 weeks after surgery. The pain should gradually improve. If the pain worsens for no apparent reason, please contact the office. b. Intermittent leg pain may also be experienced and should not be concerned about unless it worsens for no apparent reason. If so, please contact the office. 5. We will provide appropriate medication within the normal guidelines of their prescribed use. We will also be very cautious and aware of potential abuse and extended duration of patients' medication needs. a. Pain medications are for your comfort and to assist with sleep and rest so that the tissue can heal. They are not provided in order to return to normal activity and should not be used through the day. To do so or worsening pain at night can result from ongoing tissue damage and development of tolerance to the prescribed medicine. 6. Please allow 2-3 days to process refills. Prescriptions will not be mailed but must be picked up at the office. We also recommend a bowel regimen to help avoid constipation while you are taking narcotic pain medicine. Take 1-2 packets of miralax each day you're taking narcotic painkillers, as well as docusate (100mg) one tablet daily. These have been sent to your pharmacy. FOLLOW UP VISIT: Keep your scheduled follow-up appointment. Any questions, please call the office at . Pending Studies at Discharge: No Stand-Alone Forms: [facility], Smoking Cessation Medications and DC Order Prescriptions: New oxycodone 5 mg tablet 5 mg PO Q6H PRN (Reason: pain, severe) Qty: 30 RF: 0 tramadol 50 mg tablet 50 mg PO Q6H PRN (Reason: pain, moderate) Qty: 30 RF: 0 polyethylene glycol 3350 [Miralax] 17 gram/dose powder 17 g PO DAILY 7 Days Qty: 119 RF: 0 docusate sodium 100 mg capsule 100 mg PO DAILY 7 Days Qty: 7 RF: 0 Continued metformin 850 mg tablet 850 mg PO BID Qty: 180 RF: 3 cyclobenzaprine 10 mg tablet 10 mg PO TID PRN (Reason: muscle spasm) Qty: 30 RF: 0 (DME) pen needle, diabetic [BD Ultra-Fine [place] Pen Needle] 32 gauge x 5/32" needle See Rx Instructions .ROUTE .MEDSUPPLY Qty: 100 RF: 5 (DME) blood sugar diagnostic Strip See Rx Instructions .ROUTE .MEDSUPPLY Qty: 100 RF: 5 (DME) lancets [OneTouch Delica Lancets] 33 gauge misc See Rx Instructions .ROUTE .MEDSUPPLY Qty: 100 RF: 5 insulin asp prt-insulin aspart [Novolog Mix 70-30FlexPen U-100] 100 unit/mL (70-30) insulin pen 20 unit subcut BID Qty: 15 RF: 2 tramadol 50 mg tablet 50 mg PO TID PRN (Reason: pain) Qty: 30 RF: 0 oxycodone-acetaminophen [Percocet] 5-325 mg tablet 1 - 2 tab PO Q8H PRN (Reason: pain) Qty: 60 RF: 0 Xultophy 100/3.6 100 unit-3.6 mg /mL (3 mL) insulin pen See Rx Instructions .ROUTE .COMPLEX Qty: 15 RF: 5 prednisone 20 mg tablet 20 mg PO DAILY Qty: 40 RF: 0 (DME) blood-glucose meter [OneTouch Ultra2 Meter] Kit See Rx Instructions .ROUTE .MEDSUPPLY Qty: 1 RF: 0 diclofenac sodium 75 mg tablet,delayed release (DR/EC) 75 mg PO BID Qty: 60 RF: 1 atorvastatin 20 mg tablet 20 mg PO HS RF: 0 lisinopril 2.5 mg tablet 2.5 mg PO HS RF: 0 Discharge Orders: Discharge Order (Routine); Ordered 04/24/21 Ordered By: Chin Vang Admission Data Admit Date/Time: 04/19/21 19:27 Attending Provider: Kitty Tripp Admit Provider: Bony Rodriguez Primary Care Provider: Jasper Madison Other Providers: Chin Vang ; Bony Rodriguez Other Interventions: Discharge Summary Assessment (RN) Last Done: 04/24/21 11:15 Supervising Physician Co-Signing Physician Notes Patient seen and examined with PGY-2 Dr. Ngo. Agree with history, exam findings, assessment, and plan of care as outlined. In brief, Mr. Coates is a 40 year old male with hx of DM2, HLD, HTN admitted with acute lumbar radiculopathy. Has pain today in the legs and lower back but this is significantly improved compared to yesterday. Does still have some paresthesias in the left foot. VS and nursing notes reviewed. Well appearing. Dressing over the lower back is dry and intact. Drain with serosanginous drainage. Labs reviewed. 1. Left lumbar radiculopathy. s/p lumbar decompression and fusion of L4-5. Continue oral diclofenac, Tylenol, oxycodone 10mg q4h, then morphine 6mg q4h PRN. 2. DM. Not controlled. A1C 9.3% in March. Lantus 12 BID + ssi. 3. HLD/HTN. Atorvastatin 20mg and lisinopril 2.5mg. Dispo: Discharge home today. I personally spent 20 minutes discharge planning for this patient. Resident Activity Tracking Resident Involvement: Resident Care Provided Care Provided: Adult [facility]
[2021-04-24] MEDS ORDERED: INSULIN GLARGINE SOLOSTAR 100 UNITS/ML 3 ML PEN SC SCH (21:00)
== END 2021-04-24 15:48 | disposition home or self-care (01) | DRG 455 ==
LOC: ED 15:59 → 3N 19:27 → SUATTDRO 19:27 → 3N 22:39
DX: Z79.891 Long term (current) use of opiate analgesic; M51.16 Intervertebral disc disorders with radiculopathy, lumbar region; E78.5 Hyperlipidemia, unspecified; H91.90 Unspecified hearing loss, unspecified ear; Z83.3 Family history of diabetes mellitus; I10 Essential (primary) hypertension; E11.9 Type 2 diabetes mellitus without complications; Z79.4 Long term (current) use of insulin; Z86.16 Personal history of COVID-19

== ENCOUNTER 2022-10-10 10:30 | Inpatient (IN) ==
[2022-10-10] MEDS ORDERED: SODIUM CHLORIDE 0.9% 1000ML 2,000 ML IV ONE (10:47)
[2022-10-10] MEDS: ACETAMINOPHEN 1,000 MG/100 ML VIAL IV STA ×2 (11:39→11:47)
[2022-10-10 12:04] LABS: Basophils # (auto) 0.03 K/uL (0-0.2); Basophils % (auto) 0.2 %; Hematocrit (blood only) 37.8 % (42.0-52.0); Hemoglobin 13.2 g/dl (14.0-18.0); Immature Granulocytes % (auto) 0.5 %; Lymphocytes # (auto) 0.87 K/uL (1.2-3.4); Lymphocytes % (auto) 4.7 %; Mean Corpuscular Hemoglobin 29.1 pg (25.0-34.0); Mean Corpuscular Hgb Conc 34.9 g/dL (32.0-36.0); Mean Corpuscular Volume 83.4 fL (80.0-100.0); Mean Platelet Volume 9.6 fL (9.4-12.4); Monocytes % (auto) 11.4 %; Neutrophils # (auto) 15.27 K/uL (1.40-6.50); Neutrophils % (auto) 83.2 %; Platelet Count 275 K/uL (130-400); RDW Coefficient of Variation 12.2 % (11.5-14.5); Red Blood Count 4.53 M/uL (4.70-6.10); White Blood Count 18.37 K/ul (4.8-10.8)
[2022-10-10] MEDS ORDERED: ONDANSETRON INJ 2 MG/ML 2 ML VIAL IV STA (12:10)
[2022-10-10] MEDS ORDERED: diphenhydrAMINE 50 MG/ML VIAL IV STA (12:10)
[2022-10-10] MEDS ORDERED: FAMOTIDINE 20MG IV PUSH 20 MG/5 ML SYR IV STA (12:10)
[2022-10-10 12:17] LABS: Albumin Globulin Ratio 1.2 (0.9-2); BUN Creatinine Ratio 17.4 (10-20); Calcium 8.9 mg/dl (8.6-10.3); Creatinine Clr Calc Pharmacy 133.8 ml/min; Est GFR (African American) 117.6 ml/min; Est GFR (Non-African American) 101.5 ml/min; Globulin 3.3 gm/dl (2.5-4.0); Magnesium 2.1 mg/dl (1.7-2.4); Potassium 4.4 mmol/L (3.5-5.1); Total Protein 7.3 gm/dl (6.0-8.3)
[2022-10-10 12:45] LABS: Bilirubin Direct 0.3 mg/dl (0-0.2)
--- NOTE | 2022-10-10 12:45 | Emergency Department Note ---
Impression & Plan SIRS (systemic inflammatory response syndrome), Pyelonephritis, Enterovirus infection, Insulin dependent diabetes mellitus, Epigastric pain, Dehydration ED Provider Note NAME: JANETT NICOLE AGE: 41 SEX: M ARRIVES VIA: Walk-In INFORMANT: Patient ED PROVIDER(S): Errol Jack MD CHIEF COMPLAINT: Abdominal pain, feverishness PLAN: Disposition: Admit MEDICAL DECISION MAKING: The patient is a pleasant 41-year-old gentleman with past medical history of type 2 diabetes on insulin, who presents to the emergency department via walk- in, accompanied by his for evaluation of epigastric pain with generalized body aches and feverishness/fever since Saturday. Patient denies any cough or congestion. He reports intermittently feeling nauseated but denies vomiting. He denies any diarrhea. Denies any urinary symptoms. He reports feeling numbness and tingling in his right hand. On arrival the patient is uncomfortable but no acute distress, afebrile with heart in the 100s and vital signs otherwise stable. He appears clinically dry. He exhibits mild epigastric discomfort without discrete tenderness. He has no focal neurologic deficits. He reports subjective difference in sensation in his right hand on the dorsal and volar aspect but has objective sensation intact and normal strength. EKG without acute ischemia. Chest x-ray with question of left airspace opacity that could suggest pneumonia however patient denies cough or congestion and so considered less likely. WBC 18.3k with neutrophil predominance though no left shift, nonspecific. H/H similar to improved from prior values. Platelets within normal limits. Chemistry without metabolic acidosis. Sodium 130 with glucose of 226. Electrolytes otherwise without significant abnormality. LFTs unremarkable. Lipase is normal. Procalcitonin is within normal limits. UA demonstrates 4+ ketones consistent with the patient's clinically dry appearance however no bacteria or convincing evidence of infection otherwise. Respiratory viral panel/[employer] was positive for enterovirus/rhinovirus. CT of the abdomen pelvis was performed and demonstrates bladder wall thickening and possible enhancement of bilateral ureters that could suggest ascending infection. While UA is not suggestive of infection patient has complained of bilateral flank/lumbar pain and so upper infection is considered. Patient was treated empirically with IV ceftriaxone following blood cultures. Upon reevaluation the patient did report feeling improved after IV hydration, APAP, famotidine, Zofran and diphenhydramine. However he subsequently then developed feverishness and rigors and acute onset of weakness and so did prefer admission for further management. Case was d/w Dr. Rodriguez [facility] hospitalist who will evaluate the patient for admission. Triage Nursing notes reviewed and agree them. Prior/outside medical records reviewed Vital Signs: reviewed Differential diagnosis: Viral syndrome, otitis, pharyngitis, pneumonia, influenza, meningitis, urinary tract infection, sepsis, bacteremia, as well as other pathologies. ER treatment provided: See below. Diagnostics interpreted by me: ECG: Sinus tachycardia, 121 bpm, no ectopy, no overt ST elevation or depression, QTc 423, QRS 78. Cardiac Monitoring: An order for continuous cardiac monitoring was placed and demonstrated sinus tachycardia, 121 bpm, no ectopy. Laboratory studies: See below Imaging studies: See below Consultation(s): Case was d/w Dr. Rodriguez [facility] hospitalist who will evaluate the patient for admission. HPI: The patient is a pleasant 41-year-old gentleman with past medical history of type 2 diabetes on insulin, who presents to the emergency department via walk-in,, per his for evaluation of epigastric pain with generalized body aches and feverishness/fever since Saturday. Patient denies any cough or congestion. He reports intermittently feeling nauseated but denies vomiting. He denies any diarrhea. Denies any urinary symptoms. ROS: See above HPI for pertinent positives & negatives. A total of 10 systems reviewed and were otherwise negative. VITALS:See Below PHYSICAL EXAMINATION: GENERAL: Awake, alert, fatigued-appearing, in no distress HENT: Normocephalic, atraumatic. Oropharynx with dry mucous membranes. EYES: Normal conjunctiva. Sclera non-icteric. EOMI. No nystamgus. PEARRL. NECK: Supple. No nuchal rigidity. FROM. No JVD. RESPIRATORY: Clear to auscultation. CARDIAC: Tachycardic rate, normal rhythm. Extremities warm and well perfused. Pu lses equal. ABDOMEN: Soft, non-distended. Mild epigastric discomfort without discrete tenderness to palpation. No rebound or guarding. No masses. RECTAL: Deferred. MUSCULOSKELETAL: Chest examination reveals no tenderness. The back is symmetrical on inspection without obvious abnormality. There is no CVA tenderness to palpation. No joint edema. LOWER EXTREMITIES: Calves are equal size bilaterally and non-tender. No edema. No discoloration. NEURO: Normal sensorium. No sensory or motor deficits noted. 5/5 strength and SILT x 4 extremities. Cerebellar function intact including [id number], alt ernating palms, [id number]. SKIN: No rash or jaundice noted. Errol Jack MD Past Med/Surg History Medical History (Updated 10/11/22 @ 19:51 by Errol Jack MD) Hearing difficulty Hyperlipidemia Hypertension Intractable neuropathic pain of lumbosacral origin Postural imbalance Surgical History History of cholecystectomy S/P lumbar spine operation 04/21/21 Dr. Gurjit Vang- #1 lumbar decompression bilateral medial fac etectomies and foraminotomies L4-L5. #2 posterior spinal fusion L4-5. #3 placement posterior instrumentation L4-L5. #4 interbody fusion L4-L5. #5 placement of titanium cage 14 x 26 mm at L4-5. #6 placement locally harvested morselized autograft in the posterior gutters. #7 placement of I factor combined with the toxin interbody space and posterior lateral gutters. Family History Grandfather Myocardial infarction Coronary heart disease Diabetes Grandmother Myocardial infarction Coronary heart disease Father Diabetes Hypertension Denies family history of Ovarian cancer Prostate cancer Breast cancer Colorectal cancer Social History Smoking Status: Never smoker Second Hand Exposure: No; Do You Dip or Chew Tobacco: No; Hx Alcohol Use: No Hx Substance Use: No Preferred Language: Turkmen Communication Ability: Effective Visual Impairment: No Limitations Hearing Ability: Normal Supervisor Packing Room Required: No Beliefs That Will Affect Care: None marital status: Current Living Situation: Spouse current occupational status: employed 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 Other Information That Helps Us Care for You: No Feels Safe at Home: Yes Childhood Exposure to Second-Hand Smoke: No Diet: regular Dental Care, Regularly: No Physical Activity Frequency: Does not Exercise Seatbelt Use: always Sunscreen Use: Yes Assistive Devices: None Allergies Allergies Allergy/AdvReac Type Severity Reaction Status Date / Time No Known Allergies Allergy Verified 10/10/22 12:42 Home Meds Home Medications Medication Instructions Recorded Confirmed atorvastatin 20 mg tablet 20 mg PO HS 10/10/22 10/10/22 insulin aspar prot-insulin aspart 14 unit subcut BID 10/10/22 10/10/22 100 unit/mL (70-30) subcutaneous pen (Novolog Mix 70-30FlexPen U-100) insulin degludec 100 30 unit subcut QPM 10/10/22 10/10/22 unit-liraglutide 3.6 mg/mL(3 mL) subcutaneous pen (Xultophy 100/3.6) lisinopril 2.5 mg tablet 2.5 mg PO DAILY 10/10/22 10/10/22 Previous Rx's Medication Instructions Recorded lancets 33 gauge (Hubs1Touch Delica #100 ea 02/16/22 Lancets) blood-glucose meter (Hubs1Touch #1 ea 03/02/22 Ultra2 Meter kit) blood sugar diagnostic #100 ea 07/03/22 blood sugar diagnostic (OneTouch #100 ea 07/03/22 Ultra Test strips) metformin 500 mg tablet 500 mg PO BID 90 days #180 tabs 07/10/22 pen needle, diabetic 32 gauge x #100 ea 09/21/22 5/32" (BD Ultra-Fine Socorro Pen Needle) Results & Data (ED) Vital Signs Vital Signs - 24 hr 10/10/22 10:36 10/10/22 11:17 10/10/22 11:23 Temperature 37.0 C 37.0 C Temperature Source Temporal Artery Scan Oral Pulse Rate 121 H 108 H Pulse Rhythm Regular Respiratory Rate 18 21 21 Respiratory Effort / Characteristics Non-Labored Respiratory Depth Normal Respiratory Pattern Regular Blood Pressure 113/60 Blood Pressure [Right Arm] 120/64 Blood Pressure Mean 77 Blood Pressure Mean [Right Arm] 82 Blood Pressure Position [Right Arm] Semi-fowlers Pulse Oximetry 98 97 95 Oxygen Delivery Method Room Air Room Air Room Air Sepsis Recent Fever Within 48 Hours Yes Sepsis New/Unexplained Change in Mental Status No Sepsis Action Taken by Nursing No Action Required 10/10/22 12:27 Temperature Temperature Source Pulse Rate 101 H Pulse Rhythm Respiratory Rate Respiratory Effort / Characteristics Respiratory Depth Respiratory Pattern Blood Pressure Blood Pressure [Right Arm] Blood Pressure Mean Blood Pressure Mean [Right Arm] Blood Pressure Position [Right Arm] Pulse Oximetry Oxygen Delivery Method Sepsis Recent Fever Within 48 Hours Sepsis New/Unexplained Change in Mental Status Sepsis Action Taken by Nursing Laboratory Data Attestation: I reviewed the patient's lab results. 10/10/22 11:03 10/10/22 11:03 Lab Results 10/10/22 10/10/22 10/10/22 Range/Units 11:03 11:03 11:03 WBC 18.37 H (4.8-10.8) K/ul RBC 4.53 L (4.70-6.10) M/uL Hgb 13.2 L (14.0-18.0) g/dl Hct 37.8 L (42.0-52.0) % MCV 83.4 (80.0-100.0) fL MCH 29.1 (25.0-34.0) pg MCHC 34.9 (32.0-36.0) g/dL RDW Std Deviation 37.0 (36.4-46.3) fL RDW Coeff of Domenic 12.2 (11.5-14.5) % Plt Count 275 (130-400) K/uL MPV 9.6 (9.4-12.4) fL Immature Gran % (Auto) 0.5 % Neut % (Auto) 83.2 % Lymph % (Auto) 4.7 % Meade % (Auto) 11.4 % Eos % (Auto) 0.0 % Baso % (Auto) 0.2 % Neut # (Auto) 15.27 H (1.40-6.50) K/uL Lymph # (Auto) 0.87 L (1.2-3.4) K/uL Meade # (Auto) 2.10 H (0.11-0.59) K/uL Eos # (Auto) 0.00 (0-0.50) K/uL Baso # (Auto) 0.03 (0-0.2) K/uL Immature Gran # (Auto) 0.10 (0.01-0.20) K/uL Sodium 130 L (136-145) mmol/L Potassium 4.4 (3.5-5.1) mmol/L Chloride 97 L (98-107) mmol/L Carbon Dioxide 25 (21-32) mmol/L Anion Gap 8 (3-11) BUN 16 (6-23) mg/dl Creatinine 0.92 (0.6-1.4) mg/dl Est Cr Clr Drug Dosing 133.8 ml/min Est GFR ( Amer) 117.6 ml/min Est GFR (Non-Af Amer) 101.5 ml/min BUN/Creatinine Ratio 17.4 (10-20) Glucose 226 H (70-99(Fasting)) mg/dl POC Glucose (70-99) mg/dl Osmolality 285 (280-300) mOsm/kg Lactate (0.4-2.0) mmol/L Calcium 8.9 (8.6-10.3) mg/dl Magnesium 2.1 (1.7-2.4) mg/dl Total Bilirubin 1.0 (0.2-1.0) mg/dl Direct Bilirubin 0.3 H (0-0.2) mg/dl AST 16 (13-39) U/L ALT 13 (7-52) U/L Alkaline Phosphatase 63 (34-104) U/L Total Protein 7.3 (6.0-8.3) gm/dl Albumin 4.0 (3.4-5.0) gm/dl Globulin 3.3 (2.5-4.0) gm/dl Albumin/Globulin Ratio 1.2 (0.9-2) Lipase 14 (11-82) U/L Prostate Specific Ag (0-4) ng/ml Procalcitonin (0-0.5) ng/ml Urine Color Urine Appearance (Clear) Urine pH (4.5-7.5) Ur Specific [place] (1.000-1.030) Urine Protein (Negative) Urine Glucose (UA) (Negative) Urine Ketones (Negative) Urine Blood (Negative) Urine Nitrite (Negative) Urine Bilirubin (Negative) Urine Urobilinogen (Negative) Ur Leukocyte Esterase (Negative) Urine WBC (Auto) (0-5) /hpf Urine RBC (Auto) (0-4) /hpf U Hyaline Cast (Auto) (0-5) /lpf U Epithel Cells (Auto) (0-5) /lpf Urine Bacteria (Auto) (Negative) Adenovirus (PCR) (NotDetected) B. pertussis DNA (PCR) (NotDetected) B.parapertussis DNA PCR (NotDetected) C. pneumoniae DNA (PCR) (NotDetected) Coronavirus OC43 (PCR) (NotDetected) Coronavirus HKU1 (PCR) (NotDetected) Coronavirus 229E (PCR) (NotDetected) SARS-CoV-2 (PCR) (NotDetected) Coronavirus NL63 (PCR) (NotDetected) Human Metapneumovir PCR (NotDetected) Influenza Type A (PCR) (NotDetected) Influenza Type B (PCR) (NotDetected) M. pneumoniae (PCR) (NotDetected) Parainfluenza 1 (PCR) (NotDetected) Parainfluenza 2 (PCR) (NotDetected) Parainfluenza 3 (PCR) (NotDetected) Parainfluenza 4 (PCR) (NotDetected) RSV (PCR) (NotDetected) Entero/Rhino (PCR) (NotDetected) 10/10/22 10/10/22 10/10/22 Range/Units 11:03 11:03 11:10 WBC (4.8-10.8) K/ul RBC (4.70-6.10) M/uL Hgb (14.0-18.0) g/dl Hct (42.0-52.0) % MCV (80.0-100.0) fL MCH (25.0-34.0) pg MCHC (32.0-36.0) g/dL RDW Std Deviation (36.4-46.3) fL RDW Coeff of Domenic (11.5-14.5) % Plt Count (130-400) K/uL MPV (9.4-12.4) fL Immature Gran % (Auto) % Neut % (Auto) % Lymph % (Auto) % Meade % (Auto) % Eos % (Auto) % Baso % (Auto) % Neut # (Auto) (1.40-6.50) K/uL Lymph # (Auto) (1.2-3.4) K/uL Meade # (Auto) (0.11-0.59) K/uL Eos # (Auto) (0-0.50) K/uL Baso # (Auto) (0-0.2) K/uL Immature Gran # (Auto) (0.01-0.20) K/uL Sodium (136-145) mmol/L Potassium (3.5-5.1) mmol/L Chloride (98-107) mmol/L Carbon Dioxide (21-32) mmol/L Anion Gap (3-11) BUN (6-23) mg/dl Creatinine (0.6-1.4) mg/dl Est Cr Clr Drug Dosing ml/min Est GFR ( Amer) ml/min Est GFR (Non-Af Amer) ml/min BUN/Creatinine Ratio (10-20) Glucose (70-99(Fasting)) mg/dl POC Glucose (70-99) mg/dl Osmolality (280-300) mOsm/kg Lactate (0.4-2.0) mmol/L Calcium (8.6-10.3) mg/dl Magnesium (1.7-2.4) mg/dl Total Bilirubin (0.2-1.0) mg/dl Direct Bilirubin (0-0.2) mg/dl AST (13-39) U/L ALT (7-52) U/L Alkaline Phosphatase (34-104) U/L Total Protein (6.0-8.3) gm/dl Albumin (3.4-5.0) gm/dl Globulin (2.5-4.0) gm/dl Albumin/Globulin Ratio (0.9-2) Lipase (11-82) U/L Prostate Specific Ag 0.269 (0-4) ng/ml Procalcitonin 0.43 (0-0.5) ng/ml Urine Color Urine Appearance (Clear) Urine pH (4.5-7.5) Ur Specific [place] (1.000-1.030) Urine Protein (Negative) Urine Glucose (UA) (Negative) Urine Ketones (Negative) Urine Blood (Negative) Urine Nitrite (Negative) Urine Bilirubin (Negative) Urine Urobilinogen (Negative) Ur Leukocyte Esterase (Negative) Urine WBC (Auto) (0-5) /hpf Urine RBC (Auto) (0-4) /hpf U Hyaline Cast (Auto) (0-5) /lpf U Epithel Cells (Auto) (0-5) /lpf Urine Bacteria (Auto) (Negative) Adenovirus (PCR) Not Detected (NotDetected) B. pertussis DNA (PCR) Not Detected (NotDetected) B.parapertussis DNA PCR Not Detected (NotDetected) C. pneumoniae DNA (PCR) Not Detected (NotDetected) Coronavirus OC43 (PCR) Not Detected (NotDetected) Coronavirus HKU1 (PCR) Not Detected (NotDetected) Coronavirus 229E (PCR) Not Detected (NotDetected) SARS-CoV-2 (PCR) Not Detected (NotDetected) Coronavirus NL63 (PCR) Not Detected (NotDetected) Human Metapneumovir PCR Not Detected (NotDetected) Influenza Type A (PCR) Not Detected (NotDetected) Influenza Type B (PCR) Not Detected (NotDetected) M. pneumoniae (PCR) Not Detected (NotDetected) Parainfluenza 1 (PCR) Not Detected (NotDetected) Parainfluenza 2 (PCR) Not Detected (NotDetected) Parainfluenza 3 (PCR) Not Detected (NotDetected) Parainfluenza 4 (PCR) Not Detected (NotDetected) RSV (PCR) Not Detected (NotDetected) Entero/Rhino (PCR) DETECTED A* (NotDetected) 10/10/22 10/10/22 10/10/22 Range/Units 11:53 13:27 15:20 WBC (4.8-10.8) K/ul RBC (4.70-6.10) M/uL Hgb (14.0-18.0) g/dl Hct (42.0-52.0) % MCV (80.0-100.0) fL MCH (25.0-34.0) pg MCHC (32.0-36.0) g/dL RDW Std Deviation (36.4-46.3) fL RDW Coeff of Domenic (11.5-14.5) % Plt Count (130-400) K/uL MPV (9.4-12.4) fL Immature Gran % (Auto) % Neut % (Auto) % Lymph % (Auto) % Meade % (Auto) % Eos % (Auto) % Baso % (Auto) % Neut # (Auto) (1.40-6.50) K/uL Lymph # (Auto) (1.2-3.4) K/uL Meade # (Auto) (0.11-0.59) K/uL Eos # (Auto) (0-0.50) K/uL Baso # (Auto) (0-0.2) K/uL Immature Gran # (Auto) (0.01-0.20) K/uL Sodium (136-145) mmol/L Potassium (3.5-5.1) mmol/L Chloride (98-107) mmol/L Carbon Dioxide (21-32) mmol/L Anion Gap (3-11) BUN (6-23) mg/dl Creatinine (0.6-1.4) mg/dl Est Cr Clr Drug Dosing ml/min Est GFR ( Amer) ml/min Est GFR (Non-Af Amer) ml/min BUN/Creatinine Ratio (10-20) Glucose (70-99(Fasting)) mg/dl POC Glucose 211 H (70-99) mg/dl Osmolality (280-300) mOsm/kg Lactate 2.4 H* (0.4-2.0) mmol/L Calcium (8.6-10.3) mg/dl Magnesium (1.7-2.4) mg/dl Total Bilirubin (0.2-1.0) mg/dl Direct Bilirubin (0-0.2) mg/dl AST (13-39) U/L ALT (7-52) U/L Alkaline Phosphatase (34-104) U/L Total Protein (6.0-8.3) gm/dl Albumin (3.4-5.0) gm/dl Globulin (2.5-4.0) gm/dl Albumin/Globulin Ratio (0.9-2) Lipase (11-82) U/L Prostate Specific Ag (0-4) ng/ml Procalcitonin (0-0.5) ng/ml Urine Color Yellow Urine Appearance Clear (Clear) Urine pH 6.0 (4.5-7.5) Ur Specific [place] 1.028 (1.000-1.030) Urine Protein 2+ H (Negative) Urine Glucose (UA) 2+ H (Negative) Urine Ketones 4+ H (Negative) Urine Blood Negative (Negative) Urine Nitrite Negative (Negative) Urine Bilirubin Negative (Negative) Urine Urobilinogen Negative (Negative) Ur Leukocyte Esterase Negative (Negative) Urine WBC (Auto) 1-5 (0-5) /hpf Urine RBC (Auto) 0-4 (0-4) /hpf U Hyaline Cast (Auto) 5-10 H (0-5) /lpf U Epithel Cells (Auto) 10-20 H (0-5) /lpf Urine Bacteria (Auto) Negative (Negative) Adenovirus (PCR) (NotDetected) B. pertussis DNA (PCR) (NotDetected) B.parapertussis DNA PCR (NotDetected) C. pneumoniae DNA (PCR) (NotDetected) Coronavirus OC43 (PCR) (NotDetected) Coronavirus HKU1 (PCR) (NotDetected) Coronavirus 229E (PCR) (NotDetected) SARS-CoV-2 (PCR) (NotDetected) Coronavirus NL63 (PCR) (NotDetected) Human Metapneumovir PCR (NotDetected) Influenza Type A (PCR) (NotDetected) Influenza Type B (PCR) (NotDetected) M. pneumoniae (PCR) (NotDetected) Parainfluenza 1 (PCR) (NotDetected) Parainfluenza 2 (PCR) (NotDetected) Parainfluenza 3 (PCR) (NotDetected) Parainfluenza 4 (PCR) (NotDetected) RSV (PCR) (NotDetected) Entero/Rhino (PCR) (NotDetected) Administered Medications Acetaminophen (Acetaminophen 325 Mg Tab) 650 mg PO Q4H PRN PRN Reason: pain/fever Stop: 11/09/22 17:48 Last Admin: 10/11/22 17:23 Dose: 650 mg Documented By: [facility] Admin: 10/11/22 07:59 Dose: 650 mg Documented By: [facility] Admin: 10/10/22 21:07 Dose: 650 mg Documented By: PLF Atorvastatin Calcium (Atorvastatin 20 Mg Tab) 20 mg PO HS BEAU Stop: 11/09/22 20:59 Last Admin: 10/10/22 21:07 Dose: 20 mg Documented By: PLF Azithromycin (Azithromycin 250 Mg Tab) 500 mg PO QPM BEAU Stop: 10/13/22 21:39 Last Admin: 10/10/22 23:17 Dose: 500 mg Documented By: PLF Ceftriaxone Sodium 2,000 mg/ (Dextrose) 70 mls @ 100 mls/hr IV Q24H BEAU; Protocol Stop: 10/21/22 14:59 Last Infusion: 10/11/22 15:10 Dose: 0 mls/hr Documented By: Admin: 10/11/22 14:26 Dose: 100 mls/hr Documented By: KIMMY Sodium Chloride (Nss 1000ml) 1,000 mls @ 150 mls/hr IV .Q6H40M BEAU Stop: 11/10/22 16:59 Last Admin: 10/11/22 18:29 Dose: 150 mls/hr Documented By: KIMMY Insulin Aspart (Insulin Aspart Per Unit Charge) 0 units SC ACHS BEAU Stop: 11/09/22 17:59 Last Admin: 10/11/22 18:07 Dose: 5 units Documented By: KIMMY Co-signed By: MARSHA Admin: 10/11/22 13:01 Dose: 5 units Documented By: KIMMY Co-signed By: LANDRY Admin: 10/11/22 09:20 Dose: 5 units Documented By: [facility] Co-signed By: MARSHA Admin: 10/10/22 23:11 Dose: 3 units Documented By: TITA Co-signed By: JOSE Ondansetron HCl (Ondansetron Inj 2 Mg/Ml 2 Ml Vial) 4 mg IV Q6H PRN PRN Reason: Nausea Stop: 11/09/22 17:48 Last Admin: 10/11/22 14:09 Dose: 4 mg Documented By: Admin: 10/11/22 07:59 Dose: 4 mg Documented By: Admin: 10/10/22 20:03 Dose: 4 mg Documented By: TITA Pantoprazole Sodium (Pantoprazole 40 Mg Tab) 40 mg PO QAM BEAU Stop: 11/09/22 17:48 Last Admin: 10/11/22 07:59 Dose: 40 mg Documented By: [facility] Admin: 10/10/22 18:29 Dose: 40 mg Documented By: DANIS Discontinued Medications Diphenhydramine HCl (Diphenhydramine 50 Mg/Ml Vial) 25 mg IV NOW STA Stop: 10/10/22 12:11 Last Admin: 10/10/22 12:42 Dose: 25 mg Documented By: JACOB Sodium Chloride (Nss 1000ml) 2,000 mls @ 999 mls/hr IV .Q2H1M ONE Stop: 10/10/22 12:47 Last Infusion: 10/10/22 13:09 Dose: 0 mls/hr Documented By: Admin: 10/10/22 11:08 Dose: 999 mls/hr Documented By: ISMAEL Acetaminophen (Ofirmev) 1,000 mg in 100 mls @ 400 mls/hr IV NOW STA Stop: 10/10/22 11:01 Last Admin: 10/10/22 11:47 Dose: Not Given Documented By: ISMAEL Famotidine (Pepcid 20mg Iv Push) 20 mg in 5 mls @ 2.5 mls/min IV NOW STA Stop: 10/10/22 12:11 Last Admin: 10/10/22 12:40 Dose: 2.5 mls/min Documented By: JACOB Ceftriaxone Sodium (Rocephin) 2,000 mg in 70 mls @ 140 mls/hr IV NOW STA Stop: 10/10/22 14:47 Last Infusion: 10/10/22 16:01 Dose: 0 mls/hr Documented By: Admin: 10/10/22 15:24 Dose: 140 mls/hr Documented By: ISMAEL Lactated Ringer's (Lr) 1,000 mls @ 125 mls/hr IV .Q8H BAEU Stop: 10/11/22 15:44 Last Infusion: 10/11/22 17:24 Dose: 0 mls/hr Documented By: [facility] Admin: 10/11/22 07:59 Dose: 125 mls/hr Documented By: [facility] Infusion: 10/11/22 07:23 Dose: 125 mls/hr Documented By: [facility] Admin: 10/10/22 23:23 Dose: 125 mls/hr Documented By: Infusion: 10/10/22 23:23 Dose: 125 mls/hr Documented By: Admin: 10/10/22 15:44 Dose: 125 mls/hr Documented By: ISMAEL Lactated Ringer's (Lr) 1,000 mls @ 999 mls/hr IV .Q1H1M ONE Stop: 10/10/22 18:15 Last Infusion: 10/10/22 18:18 Dose: 0 mls/hr Documented By: Admin: 10/10/22 17:06 Dose: 999 mls/hr Documented By: ISMAEL Sodium Chloride (Nss 1000ml) 1,000 mls @ 999 mls/hr IV .Q1H1M ONE Stop: 10/11/22 16:21 Last Infusion: 10/11/22 18:27 Dose: 0 mls/hr Documented By: [facility] Admin: 10/11/22 17:23 Dose: 999 mls/hr Documented By: [facility] Insulin Aspart (Insulin Aspart Per Unit Charge) 0 units SC ACHS BEAU Stop: 11/09/22 17:48 Last Admin: 10/10/22 18:02 Dose: Not Given Documented By: CS Insulin Aspart (Insulin Aspart Per Unit Charge) 0 units SC Q6H BEAU Stop: 11/09/22 17:48 Last Admin: 10/10/22 18:09 Dose: 3 units Documented By: DANIS Co-signed By: MAMIE Insulin Glargine (Lantus Per Unit Charge) 0 - 5 units SQ BID BEAU Stop: 11/09/22 20:59 Last Admin: 10/11/22 09:20 Dose: 5 units Documented By: [facility] Co-signed By: MARSHA Admin: 10/10/22 23:10 Dose: 5 units Documented By: TITA Co-signed By: JOSE Ioversol (Optiray 320 100ml) 92 ml IV ONCE ONE Stop: 10/10/22 13:17 Last Admin: 10/10/22 13:17 Dose: 92 ml Documented By: BRANDEEF Ketorolac Tromethamine (Ketorolac Tromethamine 15 Mg/Ml Vial) 15 mg IV NOW ONE Stop: 10/11/22 08:32 Last Admin: 10/11/22 09:14 Dose: 15 mg Documented By: [facility] Ondansetron HCl (Ondansetron Inj 2 Mg/Ml 2 Ml Vial) 4 mg IV NOW STA Stop: 10/10/22 12:11 Last Admin: 10/10/22 12:38 Dose: 4 mg Documented By: Imaging Data Radiologist's Impression: Abdomen/Pelvis CT 10/10/22 12:10 CT abd pelvis IV con only CLINICAL HISTORY: upper abd pain, nausea, fever TECHNIQUE: Helical axial images of the abdomen and pelvis were obtained and displayed. Automated dose lowering techniques and/or adjustment according to patient size were utilized for this exam. This exam was performed with intravenous contrast. CT DOSE: 1617.89 mGy.cm COMPARISON: None available at the time of this dictation. FINDINGS: Lower chest: No acute abnormality. Liver: Unremarkable. No focal lesions are seen. Gallbladder and biliary tree: Patient is status post cholecystectomy. No intra- or extrahepatic biliary ductal dilation. Pancreas: Unremarkable, no focal lesions. Spleen: Unremarkable. Adrenals: Unremarkable. Kidneys and ureters: Mild prominence of the bilateral collecting systems with questionable enhancement of the proximal ureters. No definite wedge-shaped hypoenhancing regions in the kidneys. Bladder: Diffuse homogeneous wall thickening is seen. Reproductive organs: Unremarkable. Bowel: The appendix is normal. Lymph nodes Retroperitoneal: Unremarkable. Pelvic: Unremarkable. Mesenteric: Subcentimeter lymph nodes are noted. Peritoneum: Normal. Vessels: Unremarkable. Abdominal wall: Unremarkable. Bones: Posterior fixation hardware spanning L4-L5 is noted. IMPRESSION: Bladder wall thickening and possible enhancement of the ureters concerning for ascending urinary infection. No definite evidence of pyelonephritis. ACT 112: Negative or not required by law. Electronically signed by: Miguel Angel Carranza M.D. 10/10/2022 1:39 PM Chest X-Ray 10/10/22 12:10 XR chest 1V portable CLINICAL HISTORY: fever abd pain TECHNIQUE: Single frontal radiograph of the chest was obtained. Comparison: Comparison is made to chest radiograph 04/19/2021 FINDINGS: No lines and tubes are seen. The cardiomediastinal silhouette is normal. Left upper lung airspace opacities are seen. No evidence of pleural effusion or pneumothorax. IMPRESSION: Left airspace opacities are compatible with pneumonia. ACT 112: Negative or not required by law. Electronically signed by: Miguel Angel Carranza M.D. 10/10/2022 1:01 PM Discharge Plan Visit Data Chief Complaint: Abdominal Pain Stated Complaint: WEAKNESS, DIZZINESS, ABDOMINAL PAIN, NUMBNESS ED Provider: Errol Jack Discharge Problem: SIRS (systemic inflammatory response syndrome), Pyelonephritis, Enterovirus infection, Insulin dependent diabetes mellitus, Epigastric pain, Dehydration Patient Disposition: Admitted As Inpatient Discharge Instructions Interventions: ED Discharge Assessment Last Done: 10/10/22 17:26
[2022-10-10 12:59] LABS: Adenovirus PCR Not Detected (NotDetected); Bordetella parapertussis PCR Not Detected (NotDetected); Bordetella pertussis PCR Not Detected (NotDetected); Chlamydia pneumoniae PCR Not Detected (NotDetected); Coronavirus 229E PCR Not Detected (NotDetected); Coronavirus CoV-2 (COVID19)PCR Not Detected (NotDetected); Coronavirus HKU1 PCR Not Detected (NotDetected); Coronavirus NL63 PCR Not Detected (NotDetected); Coronavirus OC43PCR Not Detected (NotDetected); Human Metapneumovirus PCR Not Detected (NotDetected); Influenza A PCR Not Detected (NotDetected); Influenza B PCR Not Detected (NotDetected); Mycoplasma pneumoniae PCR Not Detected (NotDetected); Parainfluenza Virus 1 PCR Not Detected (NotDetected); Parainfluenza Virus 2 PCR Not Detected (NotDetected); Parainfluenza Virus 3 PCR Not Detected (NotDetected); Parainfluenza Virus 4 PCR Not Detected (NotDetected); Respiratory Syncytial VirusPCR Not Detected (NotDetected)
--- NOTE | 2022-10-10 13:03 | XRay Report ---
XR chest 1V portable CLINICAL HISTORY: fever abd pain TECHNIQUE: Single frontal radiograph of the chest was obtained. Comparison: Comparison is made to chest radiograph 04/19/2021 FINDINGS: No lines and tubes are seen. The cardiomediastinal silhouette is normal. Left upper lung airspace opa cities are seen. No evidence of pleural effusion or pneumothorax. IMPRESSION: Left airspace opacities are compatible with pneumonia. ACT 112: Negative or not required by law. Electronically signed by: Miguel Angel Carranza M.D. 10/10/2022 1:01 PM
[2022-10-10] MEDS ORDERED: OPTIRAY 320 100ml IV ONE (13:16)
[2022-10-10 13:25] LABS: Rhinovirus/Enterovirus PCR DETECTED (NotDetected)
--- NOTE | 2022-10-10 13:40 | CT Scan Report ---
CT abd pelvis IV con only CLINICAL HISTORY: upper abd pain, nausea, fever TECHNIQUE: Helical axial images of the abdomen and pelvis were obtained and displayed. Automated dose lowering techniques and/or adjustment according to patient size were utilized for this exam. This e xam was performed with intravenous contrast. CT DOSE: 1617.89 mGy.cm COMPARISON: None available at the time of this dictation. FINDINGS: Lower chest: No acute abnormality. Liver: Unremarkable. No focal lesions are seen. Gallbladder and biliary tree: Patient is status post cholecystectomy. No intra- or extrahepatic bilia ry ductal dilation. Pancreas: Unremarkable, no focal lesions. Spleen: Unremarkable. Adrenals: Unremarkable. Kidneys and ureters: Mild prominence of the bilateral collecting systems with questionable enhancemen t of the proximal ureters. No definite wedge-shaped hypoenhancing regions in the kidneys. Bladder: Diffuse homogeneous wall thickening is seen. Reproductive organs: Unremarkable. Bowel: The appendix is normal. Lymph nodes Retroperitoneal: Unremarkable. Pelvic: Unremarkable. Mesenteric: Subcentimeter lymph nodes are noted. Peritoneum: Normal. Vessels: Unremarkable. Abdominal wall: Unremarkable. Bones: Posterior fixation hardware spanning L4-L5 is noted. IMPRESSION: Bladder wall thickening and possible enhancement of the ureters concerning for ascending urinary infe ction. No definite evidence of pyelonephritis. ACT 112: Negative or not required by law. Electronically signed by: Miguel Angel Carranza M.D. 10/10/2022 1:39 PM
[2022-10-10 13:50] LABS: Appearance Urine Clear (Clear); Bacteria Urine Automated Negative (Negative); Bilirubin Urine Negative (Negative); Blood Urine Negative (Negative); Color Urine Yellow; Glucose Urine UA 2+ (Negative); Ketones Urine 4+ (Negative); Leukocyte Esterase Urine Negative (Negative); Nitrite Urine Negative (Negative); Protein Urine 2+ (Negative); RBC Urine Automated 0-4 /hpf (0-4); Specific Gravity Urine 1.028 (1.000-1.030); Urobilinogen Urine Negative (Negative)
[2022-10-10] MEDS ORDERED: cefTRIAXone SODIUM 2,000 MG/70 ML BAG IV STA (14:18)
[2022-10-10] MEDS: LACTATED RINGER'S 1,000 ML IV SCH ×2 (15:44→23:23)
[2022-10-10] MEDS ORDERED: NovoLIN-R INSULIN PER UNIT CHARGE IV STA (15:54)
--- NOTE | 2022-10-10 15:56 | History & Physical Report ---
Date of Service October 10, 2022 Assessment & Plan (1) Sepsis: Plan: Suspect left pyelonephritis (left CVA tenderness and pyelitis on CT) vs. prostatitis (PSA added), less likely PNA/enterovirus Ceftriaxone + Azithromycin Follow up blood and urine cultures Lactate 2.4 -> 1.4 with fluid resuscitation, will continue LR @ 125ml/hr for 3L (2) Epigastric pain: Plan: Main presenting complaint Lipase WNL. Most consistent with gastritis. Nothing on CT to explain this pain. Famotidine 20mg IV given in ER. Start pantoprazole 40mg PO daily and monitor for improvement. (3) Pyelonephritis of left kidney: Plan: Possible diagnosis although UA relatively unremarkable Left CVA tenderness on exam (4) Pneumonia: Plan: Possible source of infection not increased opacity on CXR although nothing on auscultation and main presenting complaint of abdominal pain. (5) Enterovirus infection: Plan: Symptomatic treatment only (6) Hypertension: Plan: Hold lisinopril due to acute infection to avoid hypotension (7) Insulin dependent diabetes mellitus: Plan: HbA1C 6.9 in June, will repeat with AM labs Home home 70/30 14 units BID, Xultophy and metformin Lantus 0-5 units BID with glucose cut off 120; likely will need to be increased as oral intake increases Novolog: --Goal BSG Range: Low 110 mg/dL, High 140 mg/dL --Correction Factor: 25 mg/dL/unit --Carbohydrate ratio = 8 g/unit --BSGs ACHS if eating, q6h if npo (8) Hyperlipidemia: Plan: Continue atorvastatin Plan VTE Prophylaxis - low risk, SCDs Diet - T2DM Disposition - admit to med/surg Admission and Anticipated Discharge Date Admission Date: October 10, 2022 History of Present Illness Chief Complaint: Abdominal pain Primary Care Provider: Jasper Madison DO Lai Coates is a 41 year old male with diabetes who presents to the ER with weakness, generalized abdominal and back pain, low grade fever since Saturday. No insulin since Saturday night due to reduced oral intake but did take his metformin last night. His pain complaint is epigastric pain, intermittent, associated nausea but no vomiting. No change in bowels, melena or hematochezia. He also reports back pain but also notes prior back surgery and feels this is just due to his rigors and chronic back problems. No specific urinary or respiratory symptoms although he is tachypneic in the emergency room. No history of prostate or urinary infections. No skin infections. Allergies Allergy/AdvReac Type Severity Reaction Status Date / Time No Known Allergies Allergy Verified 10/10/22 12:42 Home Medications Medication Instructions Recorded Confirmed Type lancets 33 gauge (OneTouch Delica #100 ea 02/16/22 10/10/22 Rx Lancets) blood-glucose meter (OneTouch #1 ea 03/02/22 10/10/22 Rx Ultra2 Meter kit) blood sugar diagnostic #100 ea 07/03/22 10/10/22 Rx blood sugar diagnostic (OneTouch #100 ea 07/03/22 10/10/22 Rx Ultra Test strips) metformin 500 mg tablet 500 mg PO BID 90 days #180 tabs 07/10/22 10/10/22 Rx pen needle, diabetic 32 gauge x #100 ea 09/21/22 10/10/22 Rx 5/32" (BD Ultra-Fine [place] Pen Needle) atorvastatin 20 mg tablet 20 mg PO HS 10/10/22 10/10/22 History insulin aspar prot-insulin aspart 14 unit subcut BID 10/10/22 10/10/22 History 100 unit/mL (70-30) subcutaneous pen (Novolog Mix 70-30FlexPen U-100) insulin degludec 100 30 unit subcut QPM 10/10/22 10/10/22 History unit-liraglutide 3.6 mg/mL(3 mL) subcutaneous pen (Xultophy 100/3.6) lisinopril 2.5 mg tablet 2.5 mg PO DAILY 10/10/22 10/10/22 History Past Med/Surg History Medical History (Updated 10/10/22 @ 21:45 by Bony Rodriguez MD) Hearing difficulty Hyperlipidemia Hypertension Intractable neuropathic pain of lumbosacral origin Postural imbalance Surgical History History of cholecystectomy S/P lumbar spine operation 04/21/21 Dr. Gurjit Vang- #1 lumbar decompression bilateral medial facetectomies and foraminotomies L4-L5. #2 posterior spinal fusion L4-5. #3 placement posterior instrumentation L4-L5. #4 interbody fusion L4-L5. #5 placement of titanium cage 14 x 26 mm at L4-5. #6 placement locally harvested morselized autograft in the posterior gutters. #7 placement of I factor combined with the toxin interbody space and posterior lateral gutters. Family History Grandfather Myocardial infarction Coronary heart disease Diabetes Grandmother Myocardial infarction Coronary heart disease Father Diabetes Hypertension Denies family history of Ovarian cancer Prostate cancer Breast cancer Colorectal cancer Social History Smoking Status: Never smoker Second Hand Exposure: No; Do You Dip or Chew Tobacco: No; Hx Alcohol Use: No Hx Substance Use: No Preferred Language: Kosovan Communication Ability: Effective Visual Impairment: No Limitations Hearing Ability: Normal Deputy Chief Executive Required: No Beliefs That Will Affect Care: None marital status: Current Living Situation: Spouse current occupational status: employed 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 Other Information That Helps Us Care for You: No Feels Safe at Home: Yes Childhood Exposure to Second-Hand Smoke: No Diet: regular Dental Care, Regularly: No Physical Activity Frequency: Does not Exercise Seatbelt Use: always Sunscreen Use: Yes Assistive Devices: Glasses Review of Systems Review of Systems: All systems reviewed & are unremarkable except as noted in HPI & below Physical Exam Constitutional: WD/WN, vitals as above + ill appearing Eyes: PERRL, conjunctivae normal, anicteric sclerae ENMT: external ear and nose normal, oropharynx normal Respiratory: + labored breathing, + uses accessory muscles and + tachypneic Auscultation: lungs clear to auscultation bilaterally; breath sounds present, no diminished lung sounds, no crackles, no rales, no rhonchi and no wheezes Cardiovascular: Rate/Rhythm: regular rhythm and + tachycardic Heart Sounds: no murmur Extremities: normal capillary refill and + pedal edema (1+ b/l equal pitting); no calf tenderness Gastrointestinal (Abdomen): Percussion/Palpation: + abdomen tender (epigastric) and abdomen soft; no guarding and abdomen not rigid Musculoskeletal: no cyanosis or clubbing, extremities motor strength 5/5 Skin: no rashes, warm and dry Neurologic: moves all extremities and awake; not confused Psychiatric: A+Ox3, euthymic affect Genitourinary: + CVA tenderness (left) Results & Data Results & Data Vital Signs (Past 12 Hours) Vital Signs Temp Pulse Pulse Resp BP BP Pulse Ox 10/10/22 15:26 36.8 C 10/10/22 15:00 96 H 20 105/50 L 98 10/10/22 15:01 99 H 27 H 99 10/10/22 15:01 102/45 L 10/10/22 15:00 100 H 24 100 10/10/22 14:31 122/40 L 10/10/22 14:31 96 H 28 H 97 10/10/22 14:30 96 H 23 94 10/10/22 14:00 96 H 23 98 10/10/22 14:00 109/45 L 10/10/22 13:32 99 H 15 99 10/10/22 13:32 105/53 L 10/10/22 13:30 96 H 13 99 10/10/22 13:00 99 H 24 97 10/10/22 13:00 108/56 L 10/10/22 12:30 99 H 17 96 10/10/22 12:30 114/56 L 10/10/22 12:03 102 H 24 94 10/10/22 12:03 107/53 L 10/10/22 12:00 99 H 16 96 10/10/22 11:30 106 H 18 96 10/10/22 11:00 117 H 27 H 97 10/10/22 10:57 119 H 18 96 10/10/22 13:00 96 H 16 108/56 L 99 10/10/22 12:27 101 H 10/10/22 11:23 37.0 C 21 120/64 95 10/10/22 11:17 108 H 21 97 10/10/22 10:36 37.0 C 121 H 18 113/60 98 O2 Del Method 10/10/22 15:26 10/10/22 15:00 Room Air 10/10/22 15:01 10/10/22 15:01 10/10/22 15:00 10/10/22 14:31 10/10/22 14:31 10/10/22 14:30 10/10/22 14:00 10/10/22 14:00 10/10/22 13:32 10/10/22 13:32 10/10/22 13:30 10/10/22 13:00 10/10/22 13:00 10/10/22 12:30 10/10/22 12:30 10/10/22 12:03 10/10/22 12:03 10/10/22 12:00 10/10/22 11:30 10/10/22 11:00 10/10/22 10:57 10/10/22 13:00 Room Air 10/10/22 12:27 10/10/22 11:23 Room Air 10/10/22 11:17 Room Air 10/10/22 10:36 Room Air Laboratory Results Abnormal lab results 10/10/22 10/10/22 10/10/22 Range/Units 11:03 11:03 11:10 WBC 18.37 H (4.8-10.8) K/ul RBC 4.53 L (4.70-6.10) M/uL Hgb 13.2 L (14.0-18.0) g/dl Hct 37.8 L (42.0-52.0) % Neut # (Auto) 15.27 H (1.40-6.50) K/uL Lymph # (Auto) 0.87 L (1.2-3.4) K/uL [place] # (Auto) 2.10 H (0.11-0.59) K/uL Sodium 130 L (136-145) mmol/L Chloride 97 L (98-107) mmol/L Glucose 226 H (70-99(Fasting)) mg/dl POC Glucose (70-99) mg/dl Direct Bilirubin 0.3 H (0-0.2) mg/dl Urine Protein (Negative) Urine Glucose (UA) (Negative) Urine Ketones (Negative) U Hyaline Cast (Auto) (0-5) /lpf U Epithel Cells (Auto) (0-5) /lpf Entero/Rhino (PCR) DETECTED A* (NotDetected) 10/10/22 10/10/22 Range/Units 11:53 13:27 WBC (4.8-10.8) K/ul RBC (4.70-6.10) M/uL Hgb (14.0-18.0) g/dl Hct (42.0-52.0) % Neut # (Auto) (1.40-6.50) K/uL Lymph # (Auto) (1.2-3.4) K/uL [place] # (Auto) (0.11-0.59) K/uL Sodium (136-145) mmol/L Chloride (98-107) mmol/L Glucose (70-99(Fasting)) mg/dl POC Glucose 211 H (70-99) mg/dl Direct Bilirubin (0-0.2) mg/dl Urine Protein 2+ H (Negative) Urine Glucose (UA) 2+ H (Negative) Urine Ketones 4+ H (Negative) U Hyaline Cast (Auto) 5-10 H (0-5) /lpf U Epithel Cells (Auto) 10-20 H (0-5) /lpf Entero/Rhino (PCR) (NotDetected) Diagnostic Findings XR chest 1V portable CLINICAL HISTORY: fever abd pain TECHNIQUE: Single frontal radiograph of the chest was obtained. Comparison: Comparison is made to chest radiograph 04/19/2021 FINDINGS: No lines and tubes are seen. The cardiomediastinal silhouette is normal. Left upper lung airspace opacities are seen. No evidence of pleural effusion or pneumothorax. IMPRESSION: Left airspace opacities are compatible with pneumonia. CT abd pelvis IV con only CLINICAL HISTORY: upper abd pain, nausea, fever TECHNIQUE: Helical axial images of the abdomen and pelvis were obtained and displayed. Automated dose lowering techniques and/or adjustment according to patient size were utilized for this exam. This exam was performed with intravenous contrast. CT DOSE: 1617.89 mGy.cm COMPARISON: None available at the time of this dictation. FINDINGS: Lower chest: No acute abnormality. Liver: Unremarkable. No focal lesions are seen. Gallbladder and biliary tree: Patient is status post cholecystectomy. No intra- or extrahepatic biliary ductal dilation. Pancreas: Unremarkable, no focal lesions. Spleen: Unremarkable. Adrenals: Unremarkable. Kidneys and ureters: Mild prominence of the bilateral collecting systems with questionable enhancement of the proximal ureters. No definite wedge-shaped hypoenhancing regions in the kidneys. Bladder: Diffuse homogeneous wall thickening is seen. Reproductive organs: Unremarkable. Bowel: The appendix is normal. Lymph nodes Retroperitoneal: Unremarkable. Pelvic: Unremarkable. Mesenteric: Subcentimeter lymph nodes are noted. Peritoneum: Normal. Vessels: Unremarkable. Abdominal wall: Unremarkable. Bones: Posterior fixation hardware spanning L4-L5 is noted. IMPRESSION: Bladder wall thickening and possible enhancement of the ureters concerning for ascending urinary infection. No definite evidence of pyelonephritis. Medications Administered ER Medications Given: NSS 2L bolus Acetaminophen 1000mg IV Famotidine 20mg IV Ondansetron 4mg IV Diphenhydramine 25mg IV Ceftriaxone 2g IV ECG Rate (beats per minute): 121 Rhythm: sinus tachycardia Findings: no acute ischemic change Comparison ECG Date: from (Apr 19, 2022) Change: no significant change Code Status & VTE Plan Code Status Full VTE Prophylaxis Plan VTE Prophylaxis will be ordered: Yes PG Care Time/CCT Total # of Minutes Spent Total Time Spent with Patient: Total time spent is greater than 50% in coordination of care (as documented) at patient's floor/unit and/or counseling patient: Coding Level of Care Code 43364 INT INP/OBS CARE 3/75MIN Diagnoses Sepsis A41.9 Epigastric pain R10.13 Pyelonephritis of left kidney N12 Pneumonia J18.9 Enterovirus infection B34.1 Hypertension I10 Insulin dependent diabetes mellitus Hyperlipidemia E78.5
[2022-10-10] MEDS ORDERED: INSULIN HUMAN REGULAR PER UNIT 3 UNITS in SYRINGE 2.97 ML IV ONE (16:00)
[2022-10-10] MEDS ORDERED: LACTATED RINGER'S 1,000 ML IV ONE (17:15)
[2022-10-10] MEDS ORDERED: GLUCOSE 40% GEL 15 GM TUBE PO PRN (17:49)
[2022-10-10] MEDS ORDERED: INSULIN ASPART PER UNIT CHARGE SC SCH ×2 (17:49→18:00)
[2022-10-10] MEDS ORDERED: DEXTROSE 50% 50 ML SYRINGE IV PRN (17:49)
[2022-10-10] MEDS ORDERED: GLUCOSE 10 TAB/TUBE PO PRN (17:49)
[2022-10-10] MEDS ORDERED: CARBOHYDRATES FOR HYPOGLYCEMIA PO PRN (17:49)
[2022-10-10] MEDS ORDERED: GLUCAGON FOR INJ 1 MG VIAL SQ PRN (17:49)
[2022-10-10] MEDS ORDERED: Nursing to Pharmacy Communication SCH ×2 (18:00→18:30)
[2022-10-10] MEDS: PANTOprazole 40 MG TAB PO SCH (18:29)
[2022-10-10] MEDS: ONDANSETRON INJ 2 MG/ML 2 ML VIAL IV PRN (20:03)
[2022-10-10] MEDS ORDERED: LANTUS PER UNIT CHARGE SQ SCH (21:00)
[2022-10-10] MEDS: ACETAMINOPHEN 325 MG TAB PO PRN (21:07)
[2022-10-10] MEDS: ATORVASTATIN 20 MG TAB PO SCH (21:07)
[2022-10-10] MEDS: LANTUS PER UNIT CHARGE SQ SCH (23:10)
[2022-10-10] MEDS: INSULIN ASPART PER UNIT CHARGE SC SCH (23:11)
[2022-10-10] MEDS: AZITHROMYCIN 250 MG TAB PO SCH (23:17)
--- NOTE | 2022-10-11 06:51 | Hospitalist Progress Note ---
Date of Service October 11, 2022 Assessment & Plan (1) Sepsis: Plan: Pt is a 41 yo male with PMH of DM presenting due to epigastric abdominal pain and low grade fevers. SIRS - WBC: 13.39, Temp: 38 C, Heart rate: 123, RR: 20 - Potentially pyelo in the setting of back pain, fever, urinary s/s and CTAP concerning for ascending infection; less likely PNA as CXR mostly clear and less likely prostatitis as symptoms do not correlate with this and PSA WNL - lactate downtrended after fluid resuscitation * continue ceftriaxone and azithromycin * Lyme titer * IV Ibuprofen for pain * heating pads and ice pads ordered for comfort * blood and urine cx pending Epigastric pain - Main presenting complaint - Lipase WNL. Most consistent with gastritis. Nothing on CT to explain this pain. * Famotidine 20mg IV given in ER. Start pantoprazole 40mg PO daily and monitor for improvement. ?Pneumonia - possible source of infection seen on CXR - exam WNL and pt asymptomatic Enterovirus infection - continue symptomatic treatment only Hypertension * hold home lisinopril due to acute infection to avoid hypotension Insulin dependent diabetes mellitus - A1C 6.9 in June, repeat - Home home 70/30 14 units BID, Xultophy and metformin - lantus 0-5 units BID with glucose cut off 120; likely will need to be increased as oral intake increases - novolog: --Goal BSG Range: Low 110 mg/dL, High 140 mg/dL --Correction Factor: 25 mg/dL/unit --Carbohydrate ratio = 8 g/unit --BSGs ACHS if eating, q6h if npo Hyperlipidemia * continue atorvastatin VTE prophylaxis: low risk, SCDs Diet: T2DM Dispo: med/surg (2) Pyelonephritis of left kidney: (3) Enterovirus infection: (4) Epigastric pain: (5) Insulin dependent diabetes mellitus: (6) Hypertension: (7) Hyperlipidemia: Admission and Anticipated Discharge Date Admission Date: October 10, 2022 Supervising Physician Co-Signing Physician Notes ATTESTATION I also saw the patient and confirmed elena portions of the history and exam. I agree with the impression and plan in the resident documentation, and as summarized below. Upon our afternoon exam, the patient was semireclined in bed. Unfortunately, just had some nausea and episode of emesis. Good news, he does note that his low back pain is improved. He did have an episode of dysuria this morning which is also resolved. EXAM 131/74, 127, 18, 37.4, 94% room air He is pleasant alert and oriented. Conversational. No acute distress appreciated. Mucous membranes appear dry. Heart is tachycardic, but regular Lungs are clear with nonlabored respirations Abdomen generally soft and nontender DATA Labs White count 13.39, platelet count 214 Sodium 131, potassium 4.2, BUN 14, creatinine 0.79 A1c 7.7% Imaging Chest x-ray 10/10/2022 shows left airspace opacity compatible with pneumonia CT scan dated 10/10/2022 notes bladder wall thickening possible enhancement of the ears concerning for ascending urinary tract infection. No definitive evidence of pyelonephritis. Micro Blood cultures drawn 10/10/2022 showed no growth at 24 hours. Urine culture collected 10/10/2022 shows no growth, less than 1000 colonies, final report to follow IMPRESSION & PLAN Sepsis, uncertain source Clinically, does not fit entirely with pyelonephritis (back pain seems more gene ralized, UA unremarkable, culture without significant growth); imaging suggests pneumonia, although clinically not significant pulmonary symptoms and relatively normal exam. Testing is positive for rhinovirus/enterovirus, and while there is not subtyping available, certain subtypes can cause rather significant viral syndromes and atypical presentations in adult patients. Thus, given the patient's myriad of symptoms and lack of focal findings, suspect viral syndrome; however, given uncertainty, will cover for bacterial etiologies pending cultures. Continue Rocephin and azithromycin Await final blood and urine cultures Symptomatic care He remains tachycardic and reports dark urine, suspect he still behind in terms of fluid Repeat 1 L bolus, then clinically reassess and at least run at 150 cc/h overnight CBC, CMP, Lyme in a.m. Repeat chest x-ray in a.m. Additional per resident documentation Subjective Pt had an episode of rigors and fever last night. Today, Patient feels uncomfortable. He is primarily reporting pain in his left lower back and middle epigastric region. He does feel that he has new pain while urinating, incontinence, and urgency. He denies increased frequency or urinary hesitation. He has not had a UTI before. He says that he has not had a bowel movement since Saturday. He did try and take docolax without successful bowel movement. He denies any cough or shortness of breath. Review of Systems Constitutional: Endorses fever, weakness, rigors. Respiratory: Denied cough or shortness of breath. Cardiovascular: Additional Comments: Denied chest pain, palpitations Gastrointestinal: Denied nausea, vomiting, diarrhea, abdominal pain. Genitourinary: + dysuria and + urinary incontinence; no difficulty urinating, no urinary frequency or no urinary hesitancy Physical Exam Constitutional: Alert and oriented x3 in hospital bed, in mild distress, hot to the touch. Eyes: Pupils were equal, normal shape and size. Anicteric sclerae. ENMT: No hearing impairment. Neck: Respiratory: CTA, no increased work of breathing, no cough Cardiovascular: Normal rate and regular rhythm. S1 S2, no rubs/murmurs/gallops auscultated. Radial pulses equal b/l. Gastrointestinal (Abdomen): Nondistended, tender in the mid epid gastric region, normoactive bowel sounds. Musculoskeletal: Moves all extremities independently. Skin: Warm dry, no apparent rashes, flushed. Psychiatric: Appropriate mood and affect. Results & Data Results & Data Vital Signs (Past 12 Hours) Vital Signs Temp Pulse Resp BP Pulse Ox O2 Del Method 10/10/22 20:00 Room Air 10/10/22 21:14 36.9 C 121 H 16 124/59 L 97 Room Air Laboratory Results 10/11/22 06:51 10/11/22 06:51 Resident Activity Tracking Resident Involvement: Resident Care Provided Care Provided: Adult Hospital Medicine
[2022-10-11 07:20] LABS: Basophils # (auto) 0.03 K/uL (0-0.2); Basophils % (auto) 0.2 %; Hematocrit (blood only) 35.3 % (42.0-52.0); Hemoglobin 12.1 g/dl (14.0-18.0); Immature Granulocytes # (auto) 0.06 K/uL (0.01-0.20); Immature Granulocytes % (auto) 0.4 %; Lymphocytes # (auto) 1.06 K/uL (1.2-3.4); Lymphocytes % (auto) 7.9 %; Mean Corpuscular Hemoglobin 28.8 pg (25.0-34.0); Mean Corpuscular Hgb Conc 34.3 g/dL (32.0-36.0); Mean Platelet Volume 9.3 fL (9.4-12.4); Monocytes # (auto) 1.63 K/uL (0.11-0.59); Monocytes % (auto) 12.2 %; Neutrophils # (auto) 10.61 K/uL (1.40-6.50); Neutrophils % (auto) 79.3 %; Platelet Count 214 K/uL (130-400); RDW Coefficient of Variation 12.3 % (11.5-14.5); RDW Standard Deviation 37.6 fL (36.4-46.3); White Blood Count 13.39 K/ul (4.8-10.8)
[2022-10-11 07:40] LABS: Albumin Globulin Ratio 1.2 (0.9-2); Albumin Level 3.5 gm/dl (3.4-5.0); BUN Creatinine Ratio 17.7 (10-20); Bilirubin,Total 0.7 mg/dl (0.2-1.0); Calcium 8.2 mg/dl (8.6-10.3); Creatinine Clr Calc Pharmacy 155.9 ml/min; Est GFR (African American) 127.5 ml/min; Potassium 4.2 mmol/L (3.5-5.1); Total Protein 6.5 gm/dl (6.0-8.3)
[2022-10-11 07:44] LABS: Estimated Average Glucose 174 mg/dl; Hemoglobin A1C 7.7 % (4.5-5.6)
[2022-10-11] MEDS: LACTATED RINGER'S 1,000 ML IV SCH (07:59)
[2022-10-11] MEDS: ACETAMINOPHEN 325 MG TAB PO PRN ×3 (07:59→21:10)
[2022-10-11] MEDS: ONDANSETRON INJ 2 MG/ML 2 ML VIAL IV PRN ×2 (07:59→14:09)
[2022-10-11] MEDS: PANTOprazole 40 MG TAB PO SCH (07:59)
[2022-10-11] MEDS ORDERED: POLYETHYLENE (MIRALAX) 17 GM PACK PO PRN (08:18)
[2022-10-11] MEDS ORDERED: KETOROLAC TROMETHAMINE 15 MG/ML VIAL IV ONE ×2 (08:31→21:21)
[2022-10-11] MEDS: LANTUS PER UNIT CHARGE SQ SCH ×2 (09:20→21:12)
[2022-10-11] MEDS: INSULIN ASPART PER UNIT CHARGE SC SCH ×4 (09:20→21:11)
--- NOTE | 2022-10-11 12:14 | Electrocardiogram Report ---
Test Reason : Blood Pressure : / mmHG Vent. Rate : 121 BPM Atrial Rate : 121 BPM P-R Int : 156 ms QRS Dur : 078 ms QT Int : 298 ms P-R-T Axes : 066 062 070 degrees QTc Int : 423 ms Sinus tachycardia Otherwise normal ECG When compared with ECG of 19-APR-2021 17:08, Criteria for Septal infarct are no longer Present Confirmed by Steven Junior ([id number]) on 10/11/2022 12:14:36 PM Referred By: REFERRED SELF Confirmed By:Carloz Junior
[2022-10-11] MEDS: cefTRIAXone SODIUM 2,000 MG in DEXTROSE 5% 50 ML IV SCH (14:26)
[2022-10-11] MEDS ORDERED: SODIUM CHLORIDE 0.9% 1000ML 1,000 ML IV ONE (15:21)
[2022-10-11] MEDS: SODIUM CHLORIDE 0.9% 1000ML 1,000 ML IV SCH (18:29)
[2022-10-11] MEDS: AZITHROMYCIN 250 MG TAB PO SCH (21:11)
[2022-10-11] MEDS: ATORVASTATIN 20 MG TAB PO SCH (21:11)
[2022-10-12] MEDS: SODIUM CHLORIDE 0.9% 1000ML 1,000 ML IV SCH ×4 (00:34→20:52)
[2022-10-12] MEDS: ACETAMINOPHEN 325 MG TAB PO PRN ×3 (07:53→20:52)
--- NOTE | 2022-10-12 08:17 | XRay Report ---
XR chest 1V portable HISTORY: Shortness of breath. Pneumonia. Follow-up. COMPARISON: Chest 10/10/2022. FINDINGS: Progressive airspace opacities involving the majority of the left lung. This likely represe nts a pneumonia. No pneumothorax. No pleural effusions. The cardiac silhouette is normal in size. No evidence for pulmonary edema. IMPRESSION: Progressive airspace opacities within the left lung consistent with a pneumonia. ACT 112: Negative or not required by law. Electronically signed by: Mohinder Benz M.D. 10/12/2022 8:16 AM
[2022-10-12 08:43] LABS: Hematocrit (blood only) 34.5 % (42.0-52.0); Mean Corpuscular Hemoglobin 29.3 pg (25.0-34.0); Mean Corpuscular Hgb Conc 34.8 g/dL (32.0-36.0); Mean Corpuscular Volume 84.1 fL (80.0-100.0); Mean Platelet Volume 9.7 fL (9.4-12.4); Platelet Count 223 K/uL (130-400); RDW Coefficient of Variation 12.5 % (11.5-14.5); RDW Standard Deviation 38.1 fL (36.4-46.3); White Blood Count 10.28 K/ul (4.8-10.8)
[2022-10-12 09:04] LABS: Calcium 7.8 mg/dl (8.6-10.3); Est GFR (African American) 132.4 ml/min; Est GFR (Non-African American) 114.3 ml/min; Potassium 4.3 mmol/L (3.5-5.1)
[2022-10-12] MEDS: INSULIN ASPART PER UNIT CHARGE SC SCH ×4 (09:19→20:52)
[2022-10-12] MEDS: LANTUS PER UNIT CHARGE SQ SCH ×2 (09:21→20:52)
[2022-10-12] MEDS: PANTOprazole 40 MG TAB PO SCH (09:24)
[2022-10-12] MEDS: POLYETHYLENE (MIRALAX) 17 GM PACK PO SCH (09:28)
--- NOTE | 2022-10-12 11:06 | Hospitalist Progress Note ---
Date of Service October 12, 2022 Assessment & Plan (1) Sepsis: Plan: Pt is a 41 yo male with PMH of DM presenting due to epigastric abdominal pain and low grade fevers. SIRS, pneumonia - Prev: WBC: 13.39, Temp: 38 C, Heart rate: 123, RR: 20 - CXR: left lung pnx. - Urine cx: no growth - Positive Entero/Rhino virus. - Probable bacterial superimposed on viral. - lactate downtrended after fluid resuscitation * If blood cx neg at 48 hours, Ceftriaxone and azithromycin change to Augmentin for CAP coverage. * Lyme titer pending * IV Ibuprofen for pain * heating pads and ice pads ordered for comfort Epigastric pain - Lipase WNL. Most consistent with gastritis. Nothing on CT to explain this pain. * Famotidine 20mg IV given in ER. Start pantoprazole 40mg PO daily and monitor for improvement. Hypertension * hold home lisinopril due to acute infection to avoid hypotension Insulin dependent diabetes mellitus - A1C 6.9 in June, repeat - Home home 70/30 14 units BID, Xultophy and metformin - lantus 0-5 units BID with glucose cut off 120; likely will need to be increased as oral intake increases - novolog: --Goal BSG Range: Low 110 mg/dL, High 140 mg/dL --Correction Factor: 25 mg/dL/unit --Carbohydrate ratio = 8 g/unit --BSGs ACHS if eating, q6h if npo Hyperlipidemia * continue atorvastatin VTE prophylaxis: low risk, SCDs Diet: T2DM Dispo: med/surg (2) Pyelonephritis of left kidney: (3) Enterovirus infection: (4) Epigastric pain: (5) Insulin dependent diabetes mellitus: (6) Hypertension: (7) Hyperlipidemia: Admission and Anticipated Discharge Date Admission Date: October 10, 2022 Supervising Physician Co-Signing Physician Notes I personally examined the patient and verified all elena points of history and exam, discussed case, and agree with decision making and plan documented by student physician Shereen GANDHI. Overall, patient states he feels that he is improving. CT imaging showed bilateral pneumonia on addendum. Blood cultures no growth after 24 hours. Leukocytosis resolved. Sodium improving, now 133. Patient had a fever this morning and remains mildly tachycardic. Transition patient to Augmentin PO. Subjective Episode of chills and night sweats overnight. Today he feels slightly better. Less nausea. He still has pain in his back and his epigastric area. ROS: He denies dysuria, chest pain, and shortness of breath. He does endorse nonproductive cough and constipation. Physical Exam Constitutional: Alert and oriented x3 in hospital bed Eyes: Pupils were equal, normal shape and size. Anicteric sclerae. ENMT: No hearing impairment. Neck: Respiratory: CTA, no increased work of breathing, no cough Cardiovascular: Normal rate and regular rhythm. S1 S2, no rubs/murmurs/gallops auscultated. Radial pulses present. Gastrointestinal (Abdomen): Nondistended, tender in epigastric region, hyperactive bowel sounds. Musculoskeletal: Moves all extremities independently. Skin: Warm dry, no apparent rashes. Psychiatric: Appropriate mood and affect. Results & Data Results & Data Vital Signs (Past 12 Hours) Vital Signs Temp Pulse Resp BP Pulse Ox O2 Del Method 10/12/22 08:21 37.4 C 112 H 18 134/82 94 Room Air 10/12/22 04:01 37.1 C 10/12/22 01:11 36.7 C 90 18 132/80 96 Room Air
[2022-10-12] MEDS: cefTRIAXone SODIUM 2,000 MG in DEXTROSE 5% 50 ML IV SCH (14:56)
[2022-10-12] MEDS: AMOXICILLIN/CLAVULANATE 875 MG TAB PO SCH (18:40)
[2022-10-12] MEDS: ATORVASTATIN 20 MG TAB PO SCH (20:51)
[2022-10-12] MEDS: AZITHROMYCIN 250 MG TAB PO SCH (20:51)
[2022-10-13] MEDS: SODIUM CHLORIDE 0.9% 1000ML 1,000 ML IV SCH ×3 (04:37→20:39)
[2022-10-13 06:51] LABS: Hematocrit (blood only) 31.4 % (42.0-52.0); Hemoglobin 11.2 g/dl (14.0-18.0); Mean Corpuscular Hemoglobin 29.6 pg (25.0-34.0); Mean Corpuscular Hgb Conc 35.7 g/dL (32.0-36.0); Mean Corpuscular Volume 82.8 fL (80.0-100.0); Mean Platelet Volume 9.8 fL (9.4-12.4); Platelet Count 216 K/uL (130-400); RDW Coefficient of Variation 12.6 % (11.5-14.5); RDW Standard Deviation 38.5 fL (36.4-46.3); Red Blood Count 3.79 M/uL (4.70-6.10); White Blood Count 9.66 K/ul (4.8-10.8)
[2022-10-13 07:05] LABS: BUN Creatinine Ratio 19.4 (10-20); Calcium 7.6 mg/dl (8.6-10.3); Creatinine Clr Calc Pharmacy 198.6 ml/min; Est GFR (African American) 140.8 ml/min; Est GFR (Non-African American) 121.5 ml/min; Magnesium 1.7 mg/dl (1.7-2.4); Potassium 3.9 mmol/L (3.5-5.1)
--- NOTE | 2022-10-13 07:14 | Discharge Summary ---
Date of Service October 13, 2022 Admission HPI Per Admitting Provider Lai Coates is a 41 year old male with diabetes who presents to the ER with weakness, generalized abdominal and back pain, low grade fever since Saturday. No insulin since Saturday night due to reduced oral intake but did take his metformin last night. His pain complaint is epigastric pain, intermittent, associated nausea but no vomiting. No change in bowels, melena or hematochezia. He also reports back pain but also notes prior back surgery and feels this is just due to his rigors and chronic back problems. No specific urinary or respiratory symptoms although he is tachypneic in the emergency room. No history of prostate or urinary infections. No skin infections. Admission Exam Per Admitting Provider Constitutional: WD/WN, vitals as above + ill appearing Eyes: PERRL, conjunctivae normal, anicteric sclerae ENMT: external ear and nose normal, oropharynx normal Respiratory: + labored breathing, + uses accessory muscles and + tachypneic Auscultation: lungs clear to auscultation bilaterally; breath sounds present, no diminished lung sounds, no crackles, no rales, no rhonchi and no wheezes Cardiovascular: Rate/Rhythm: regular rhythm and + tachycardic Heart Sounds: n o murmur Extremities: normal capillary refill and + pedal edema (1+ b/l equal pitting); no calf tenderness Gastrointestinal (Abdomen): Percussion/Palpation: + abdomen tender (epigastric) and abdomen soft; no guarding and abdomen not rigid Musculoskeletal: no cyanosis or clubbing, extremities motor strength 5/5 Skin: no rashes, warm and dry Neurologic: moves all extremities and awake; not confused Psychiatric: A+Ox3, euthymic affect Principal Diagnosis Sepsis secondary to pneumonia Discharge Exam Constitutional: well-appearing, no acute distress HEENT: NCAT, no conjunctival injection CV: regular rhythm, no murmur appreciated, extremities well-perfused, no LE edema Resp: CTABL, no wheezes/rales/rhonchi appreciated, no increased work of breathing GI: soft, nondistended, slightly tender in the epigastric region, BS normoactive MSK: no gross deformities appreciated Skin: warm, dry, no rash appreciated Neuro: alert, oriented, no focal neurologic deficit appreciated Discharge Data Allergies Allergy/AdvReac Type Severity Reaction Status Date / Time No Known Allergies Allergy Verified 10/10/22 12:42 Consultations 10/10/22 15:34 ED Decision to Admit Stat Procedures Performed Abdomen/Pelvis CT 10/10/22 12:10 CT abd pelvis IV con only CLINICAL HISTORY: upper abd pain, nausea, fever TECHNIQUE: Helical axial images of the abdomen and pelvis were obtained and displayed. Automated dose lowering techniques and/or adjustment according to patient size were utilized for this exam. This exam was performed with intravenous contrast. CT DOSE: 1617.89 mGy.cm COMPARISON: None available at the time of this dictation. FINDINGS: Lower chest: No acute abnormality. Liver: Unremarkable. No focal lesions are seen. Gallbladder and biliary tree: Patient is status post cholecystectomy. No intra- or extrahepatic biliary ductal dilation. Pancreas: Unremarkable, no focal lesions. Spleen: Unremarkable. Adrenals: Unremarkable. Kidneys and ureters: Mild prominence of the bilateral collecting systems with questionable enhancement of the proximal ureters. No definite wedge-shaped hypoenhancing regions in the kidneys. Bladder: Diffuse homogeneous wall thickening is seen. Reproductive organs: Unremarkable. Bowel: The appendix is normal. Lymph nodes Retroperitoneal: Unremarkable. Pelvic: Unremarkable. Mesenteric: Subcentimeter lymph nodes are noted. Peritoneum: Normal. Vessels: Unremarkable. Abdominal wall: Unremarkable. Bones: Posterior fixation hardware spanning L4-L5 is noted. IMPRESSION: Bladder wall thickening and possible enhancement of the ureters concerning for ascending urinary infection. No definite evidence of pyelonephritis. ACT 112: Negative or not required by law. Electronically signed by: Miguel Angel Carranza M.D. 10/10/2022 1:39 PM Chest X-Ray 10/10/22 12:10 XR chest 1V portable CLINICAL HISTORY: fever abd pain TECHNIQUE: Single frontal radiograph of the chest was obtained. Comparison: Comparison is made to chest radiograph 04/19/2021 FINDINGS: No lines and tubes are seen. The cardiomediastinal silhouette is normal. Left upper lung airspace opacities are seen. No evidence of pleural effusion or pneumothorax. IMPRESSION: Left airspace opacities are compatible with pneumonia. ACT 112: Negative or not required by law. Electronically signed by: Miguel Angel Carranza M.D. 10/10/2022 1:01 PM Chest X-Ray 10/12/22 07:00 XR chest 1V portable HISTORY: Shortness of breath. Pneumonia. Follow-up. COMPARISON: Chest 10/10/2022. FINDINGS: Progressive airspace opacities involving the majority of the left lung. This likely represents a pneumonia. No pneumothorax. No pleural effusions. The cardiac silhouette is normal in size. No evidence for pulmonary edema. IMPRESSION: Progressive airspace opacities within the left lung consistent with a pneumonia. ACT 112: Negative or not required by law. Electronically signed by: Mohinder Benz M.D. 10/12/2022 8:16 AM Chest X-Ray 10/13/22 09:27 XR chest 2V PA/lateral HISTORY: Pneumonia COMPARISON: Chest 10/12/2022. FINDINGS: No pneumothorax. No pleural effusions. The heart is normal in size. Patchy left airspace opacities are similar to the prior study. There are few small patchy airspace opacities within the right lung, unchanged. IMPRESSION: No significant change in the multifocal airspace opacities likely representing a pneumonia. This is most pronounced on the left. ACT 112: Negative or not required by law. Electronically signed by: Mohinder Benz M.D. 10/13/2022 10:22 AM Ordered Studies 10/10/22 12:10 CT abd pelvis IV con only Stat Hospital Course (1) Sepsis: Pt is a 41 yo male with PMH of DM presenting due to epigastric abdominal pain and low grade fevers. SIRS, pneumonia - Prev: WBC: 13.39, Temp: 38 C, Heart rate: 123, RR: 20 - CXR: left lung pnx. - Positive Entero/Rhino virus. - Probable bacterial superimposed on viral. - lactate downtrended after fluid resuscitation - Blood and urine cultures negative x48 hours. - Transition to Augmentin on 10/12. Should continue Augmentin 875 twice daily with last dose being on the evening of 10/19. - Chest x-ray on 10/13 showed no significant change in multifocal airspace opacities. - Given douneb prior to discharge, which caused the patient to be shaky and tachycardic. The benefit of albuterol at time of discharge. - Should finish course of antibiotics and follow-up with PCP. Possible CXR in one week time. Epigastric pain - Lipase WNL. Most consistent with gastritis. -CT abdomen pelvis on 10/10 showed possible ascending urinary infection with no evidence of pyelonephritis. No concerning features seen on CT in regards to patient's epigastric pain. -Famotidine 20mg IV given in ER. Start pantoprazole 40mg PO daily. We will send patient home on pantoprazole 40 mg daily. -Should follow-up as an outpatient regarding GERD symptoms Hypertension - hold home lisinopril due to acute infection to avoid hypotension - Can restart at time of discharge Insulin dependent diabetes mellitus - A1C 6.9 in June, hemoglobin A1c of 7.7 on 10/11. - Sliding scale utilized during admission - Patient should follow-up with PCP regarding continued management of his diabetes Hyperlipidemia -continue atorvastatin (2) Pyelonephritis of left kidney: (3) Enterovirus infection: (4) Epigastric pain: (5) Insulin dependent diabetes mellitus: (6) Hypertension: (7) Hyperlipidemia: Total Time Total Time Spent Total Time Spent (In Minutes): Please refer to attendings attestation. Discharge Plan Discharge Items Patient Disposition: Home - Self-Care Reason For Visit: SEPSIS, PNEUMONIA, UTI Discharge Diagnosis: Sepsis secondary to pneumonia Activity: Resume your previous activity Non-emergency contact: Primary Care Provider Call non-emergency contact if: you have any medication questions, your pain is unusual for you and your temperature is above 101.5 Follow-up/Referrals: Jasper Madison, [Primary Care Provider] - (In 1 week) Diet: Carb Consistent or DM2 Addtl Attending Provider Instructions: You were admitted to the hospital for sepsis secondary to pneumonia. You were treated with antibiotics and improved. A discharge summary will be sent to your primary care physician to ensure continuity of care. Please bring this discharge summary with you to your next office appointment so that your provider can review it at that time. Follow-up appointments: * Make a follow-up appointment with your PCP within the next week. It is very important that you follow up with them shortly after discharge from the hospital. * Keep all your follow-up appointments as already scheduled. If you cannot make an appointment, notify your provider. Medications: Your medication list has been reviewed and reconciled upon discharge to ensure accuracy and continuity of care. An updated list of all your medications is included with your hospital discharge paperwork. Please review this list closely, and make note of any changes. * We sent a new medication called Augmentin to your pharmacy. Take Augmentin (875/125 mg) 1 tablet twice a day for 6 days. * We sent a new medication called pantoprazole to your pharmacy. Please take pantoprazole (40 mg) once a day in the morning. * If you have any issues filling these prescriptions, please call [phone] and ask to leave a message for Dr. Longo. * Take your medications as instructed; do not skip a dose of your medicines. Make sure all of your doctors know every medicine you are taking (including [id number] medicines, vitamins, and supplements). Call your primary care provider before taking any new medicines (including over- the-counter medicines, vitamins, and supplements), because some of these may interact with your current medications, or may make your symptoms worse. Tell your primary care provider if you cannot afford your medications. CONTACT YOUR PRIMARY CARE PROVIDER if you experience any of the following: * Worsening of symptoms * Fever, chills, or fatigue * Difficulty following your treatment plan, or difficulty taking medications CALL 911 OR GO TO THE EMERGENCY DEPARTMENT if you experience any of the following: * Sudden, severe abdominal pain or nausea/vomiting * Severe chest pain, or chest pain that radiates (moves) to your jaw or arm * Sudden, severe shortness of breath or difficulty breathing Thank you for allowing us to participate in your care. Pending Studies at Discharge: No Stand-Alone Forms: [facility], Smoking Cessation Medications and DC Order Prescriptions: New pantoprazole 40 mg Tablet,Delayed Release (Dr/Ec) 40 mg PO QAM 30 Days Qty: 30 0RF amoxicillin-pot clavulanate 875-125 mg Tablet 1 tab PO BIDM 6 Days Qty: 12 0RF Continued (DME) lancets [OneTouch Delica Lancets] 33 gauge misc See Rx Instructions .ROUTE .MEDSUPPLY Qty: 100 5RF Rx Instructions: As directed, test 3 x daily. E11.9 (DME) blood-glucose meter [OneTouch Ultra2 Meter] Kit See Rx Instructions .ROUTE .MEDSUPPLY Qty: 1 0RF Rx Instructions: TEST THREE TIMES DAILY OR DIRECTED (DME) blood sugar diagnostic Strip See Rx Instructions .ROUTE .MEDSUPPLY Qty: 100 5RF Rx Instructions: As directed, test 3 times daily. E11.9 (DME) OneTouch Ultra Test Strip See Rx Instructions .Route Qty: 100 5RF Rx Instructions: Test 3 times/day (DME) pen needle, diabetic [BD Ultra-Fine Socorro Pen Needle] 32 gauge x 5/32" needle See Rx Instructions .ROUTE .COMPLEX Qty: 100 5RF Dose Instruction: USE DIRECTED THREE TIMES DAILY Rx Instructions: USE DIRECTED THREE TIMES DAILY metformin 500 mg tablet 500 mg PO BID 90 Days Qty: 180 3RF atorvastatin 20 mg tablet 20 mg PO HS Rx Instructions: TAKE ONE TABLET BY MOUTH AT BEDTIME lisinopril 2.5 mg tablet 2.5 mg PO DAILY Rx Instructions: TAKE ONE TABLET BY MOUTH EVERY DAY insulin asp prt-insulin aspart [Novolog Mix 70-30FlexPen U-100] 100 unit/mL (70-30) insulin pen 14 unit subcut BID Rx Instructions: 16 units q AM, 16 units q PM, subcut twice a day; Xultophy 100/3.6 100 unit-3.6 mg /mL (3 mL) insulin pen 30 unit subcut QPM Admission Data Admit Date/Time: 10/10/22 15:53 Attending Provider: Rosa Maria Mayorga Admit Provider: Bony Rodriguez Primary Care Provider: Jasper Madison Other Providers: Bony Rodriguez ; Tobias Shannon Resident Activity Tracking Resident Involvement: Resident Care Provided Care Provided: Adult Hospital Medicine
[2022-10-13] MEDS: AMOXICILLIN/CLAVULANATE 875 MG TAB PO SCH ×2 (07:27→17:10)
[2022-10-13] MEDS: ACETAMINOPHEN 325 MG TAB PO PRN ×2 (07:29→17:00)
[2022-10-13] MEDS: POLYETHYLENE (MIRALAX) 17 GM PACK PO SCH (08:44)
[2022-10-13] MEDS: PANTOprazole 40 MG TAB PO SCH (08:45)
[2022-10-13] MEDS: LANTUS PER UNIT CHARGE SQ SCH ×2 (08:54→20:40)
[2022-10-13] MEDS: INSULIN ASPART PER UNIT CHARGE SC SCH ×4 (08:55→20:40)
--- NOTE | 2022-10-13 10:24 | XRay Report ---
XR chest 2V PA/lateral HISTORY: Pneumonia COMPARISON: Chest 10/12/2022. FINDINGS: No pneumothorax. No pleural effusions. The heart is normal in size. Patchy left airspace op acities are similar to the prior study. There are few small patchy airspace opacities within the righ t lung, unchanged. IMPRESSION: No significant change in the multifocal airspace opacities likely representing a pneumonia. This is m ost pronounced on the left. ACT 112: Negative or not required by law. Electronically signed by: Mohinder Benz M.D. 10/13/2022 10:22 AM
[2022-10-13] MEDS ORDERED: ALBUT/IPRATROP 3MG/0.5MG NEB 3 ML VIAL NEB STA (13:59)
--- NOTE | 2022-10-13 16:58 | Hospitalist Progress Note ---
Date of Service October 13, 2022 Assessment & Plan (1) Sepsis: (2) Pyelonephritis of left kidney: (3) Enterovirus infection: (4) Epigastric pain: (5) Insulin dependent diabetes mellitus: (6) Hypertension: (7) Hyperlipidemia: Plan Pt is a 41 yo male with PMH of DM presenting due to epigastric abdominal pain and low grade fevers. SIRS, pneumonia - Prev: WBC: 13.39, Temp: 38 C, Heart rate: 123, RR: 20 - CXR: left lung pnx. -Urine and blood cultures negative. - Positive Entero/Rhino virus. - Probable bacterial superimposed on viral. - lactate downtrended after fluid resuscitation - Was given 3 doses of azithromycin ending on 10/12. - Was given 2 doses of ceftriaxone ending on 10/12. - Transition to Augmentin 875 twice daily on 10/12. - Was given a DuoNeb which caused the patient becomes shaky and tachycardic. No benefit to continuing albuterol as an outpatient. - On 10/13 patient became febrile again. Will order CBC, lactate, and Pro-Stuart. May consider going back on previous antibiotic therapy. Epigastric pain - Lipase WNL. Most consistent with gastritis. Nothing on CT to explain this pain. - Recheck lipase on 10/13 which was negative. - Famotidine 20mg IV given in ER. Start pantoprazole 40mg PO daily and monitor for improvement. Hypertension -Was initially holding home lisinopril due to acute infection to avoid hypotension -We will restart at time of discharge. Insulin dependent diabetes mellitus - A1C 6.9 in June, repeat - Home home 70/30 14 units BID, Xultophy and metformin - lantus 0-5 units BID with glucose cut off 120; likely will need to be increased as oral intake increases - novolog: --Goal BSG Range: Low 110 mg/dL, High 140 mg/dL --Correction Factor: 25 mg/dL/unit --Carbohydrate ratio = 8 g/unit --BSGs ACHS if eating, q6h if npo Hyperlipidemia - continue atorvastatin VTE prophylaxis: low risk, SCDs Diet: T2DM Dispo: med/surg Admission and Anticipated Discharge Date Admission Date: October 10, 2022 Supervising Physician Co-Signing Physician Notes I personally examined the patient and verified all elena points of history and exam, discussed case, and agree with decision making and plan documented by Dr. Longo. Repeat PA lateral chest x-ray reveals no significant change in multifocal airspace opacities.Patient states he is now having mild productive cough, remains on Augmentin for pneumonia. Still has epigastric pain that is tender to deep palpation, no guarding or rebound, has had a bowel movement, he is eating well, is positive enterovirus/rhinovirus on viral panel. In the afternoon, patient had fever with some associated tachycardia, will recheck CBC, lactate and procalcitonin. Subjective Patient was seen bedside this morning. States that he is feeling better. He still complains of epigastric pain. He denies any nausea or vomiting. Review of Systems Review of Systems: All systems reviewed & are unremarkable except as noted in Subjective Physical Exam Physical Exam: Constitutional: well-appearing, no acute distress HEENT: NCAT, no conjunctival injection CV: regular rhythm, no murmur appreciated, extremities well-perfused, no LE edema Resp: CTABL, no wheezes/rales/rhonchi appreciated, no increased work of breathing GI: soft, nondistended, mild epigastric pain, BS normoactive MSK: no gross deformities appreciated Skin: warm, dry, no rash appreciated Neuro: alert, oriented, no focal neurologic deficit appreciated Results & Data Results & Data Vital Signs (Past 12 Hours) Vital Signs Temp Pulse Resp BP Pulse Ox O2 Del Method 10/13/22 16:53 39.5 C H 110 H 20 149/73 H 97 Room Air 10/13/22 15:40 37 C 120 H 18 151/75 H 100 Room Air 10/13/22 15:04 37.1 C 121 H 22 146/69 H 99 Room Air 10/13/22 14:41 80 95 Room Air 10/13/22 07:37 37.4 C 100 H 20 123/71 92 Room Air 10/13/22 07:17 Room Air Laboratory Results 10/13/22 06:08 10/13/22 06:08 Resident Activity Tracking Resident Involvement: Resident Care Provided Care Provided: Adult Hospital Medicine
[2022-10-13 17:36] LABS: Hematocrit (blood only) 33.7 % (42.0-52.0); Hemoglobin 11.8 g/dl (14.0-18.0); Mean Corpuscular Hemoglobin 28.9 pg (25.0-34.0); Mean Corpuscular Volume 82.6 fL (80.0-100.0); Mean Platelet Volume 9.8 fL (9.4-12.4); Platelet Count 245 K/uL (130-400); RDW Coefficient of Variation 12.7 % (11.5-14.5); RDW Standard Deviation 38.5 fL (36.4-46.3); Red Blood Count 4.08 M/uL (4.70-6.10); White Blood Count 9.95 K/ul (4.8-10.8)
[2022-10-13] MEDS: AZITHROMYCIN 250 MG TAB PO SCH (20:41)
[2022-10-13] MEDS: ATORVASTATIN 20 MG TAB PO SCH (20:41)
[2022-10-14] MEDS: ACETAMINOPHEN 325 MG TAB PO PRN (02:03)
[2022-10-14] MEDS ORDERED: BENZONATATE 100 MG CAPSULE PO PRN (02:12)
[2022-10-14] MEDS ORDERED: BENZONATATE 100 MG CAPSULE ONE (02:22)
[2022-10-14] MEDS: SODIUM CHLORIDE 0.9% 1000ML 1,000 ML IV SCH ×2 (02:24→09:10)
[2022-10-14 06:35] LABS: Calcium 8.2 mg/dl (8.6-10.3); Potassium 3.7 mmol/L (3.5-5.1)
[2022-10-14 06:41] LABS: BUN Creatinine Ratio 16.1 (10-20); Creatinine Clr Calc Pharmacy 198.6 ml/min; Est GFR (African American) 140.8 ml/min; Est GFR (Non-African American) 121.5 ml/min
--- NOTE | 2022-10-14 06:54 | Discharge Summary ---
Date of Service October 14, 2022 Admission HPI Per Admitting Provider Lai Coates is a 41 year old male with diabetes who presents to the ER with weakness, generalized abdominal and back pain, low grade fever since Saturday. No insulin since Saturday night due to reduced oral intake but did take his metformin last night. His pain complaint is epigastric pain, intermittent, associated nausea but no vomiting. No change in bowels, melena or hematochezia. He also reports back pain but also notes prior back surgery and feels this is just due to his rigors and chronic back problems. No specific urinary or respiratory symptoms although he is tachypneic in the emergency room. No history of prostate or urinary infections. No skin infections. Admission Exam Per Admitting Provider Constitutional: WD/WN, vitals as above + ill appearing Eyes: PERRL, conjunctivae normal, anicteric sclerae ENMT: external ear and nose normal, oropharynx normal Respiratory: + labored breathing, + uses accessory muscles and + tachypneic Auscultation: lungs clear to auscultation bilaterally; breath sounds present, no diminished lung sounds, no crackles, no rales, no rhonchi and no wheezes Cardiovascular: Rate/Rhythm: regular rhythm and + tachycardic Heart Sounds: no murmur Extremities: normal capillary refill and + pedal edema (1+ b/l equal pitting); no calf tenderness Gastrointestinal (Abdomen): Percussion/Palpation: + abdomen tender (epigastric) and abdomen soft; no guarding and abdomen not rigid Musculoskeletal: no cyanosis or clubbing, extremities motor strength 5/5 Skin: no rashes, warm and dry Neurologic: moves all extremities and awake; not confused Psychiatric: A+Ox3, euthymic affect Principal Diagnosis Pneumonia Discharge Exam Constitutional: well-appearing, no acute distress HEENT: NCAT, no conjunctival injection CV: regular rhythm, no murmur appreciated, extremities well-perfused, no LE edema Resp: CTABL, no wheezes/rales/rhonchi appreciated, no increased work of breathing GI: soft, nondistended, mild epigastric tenderness on palpitation, BS normoactive MSK: no gross deformities appreciated Skin: warm, dry, no rash appreciated Neuro: alert, oriented, no focal neurologic deficit appreciated Discharge Data Allergies Allergy/AdvReac Type Severity Reaction Status Date / Time No Known Allergies Allergy Verified 10/10/22 12:42 Consultations 10/10/22 15:34 ED Decision to Admit Stat Procedures Performed Abdomen/Pelvis CT 10/10/22 12:10 CT abd pelvis IV con only CLINICAL HISTORY: upper abd pain, nausea, fever TECHNIQUE: Helical axial images of the abdomen and pelvis were obtained and displayed. Automated dose lowering techniques and/or adjustment according to patient size were utilized for this exam. This exam was performed with i ntravenous contrast. CT DOSE: 1617.89 mGy.cm COMPARISON: None available at the time of this dictation. FINDINGS: Lower chest: No acute abnormality. Liver: Unremarkable. No focal lesions are seen. Gallbladder and biliary tree: Patient is status post cholecystectomy. No intra- or extrahepatic biliary ductal dilation. Pancreas: Unremarkable, no focal lesions. Spleen: Unremarkable. Adrenals: Unremarkable. Kidneys and ureters: Mild prominence of the bilateral collecting systems with questionable enhancement of the proximal ureters. No definite wedge-shaped hypoenhancing regions in the kidneys. Bladder: Diffuse homogeneous wall thickening is seen. Reproductive organs: Unremarkable. Bowel: The appendix is normal. Lymph nodes Retroperitoneal: Unremarkable. Pelvic: Unremarkable. Mesenteric: Subcentimeter lymph nodes are noted. Peritoneum: Normal. Vessels: Unremarkable. Abdominal wall: Unremarkable. Bones: Posterior fixation hardware spanning L4-L5 is noted. IMPRESSION: Bladder wall thickening and possible enhancement of the ureters concerning for ascending urinary infection. No definite evidence of pyelonephritis. ACT 112: Negative or not required by law. Electronically signed by: Miguel Angel Carranza M.D. 10/10/2022 1:39 PM Chest X-Ray 10/10/22 12:10 XR chest 1V portable CLINICAL HISTORY: fever abd pain TECHNIQUE: Single frontal radiograph of the chest was obtained. Comparison: Comparison is made to chest radiograph 04/19/2021 FINDINGS: No lines and tubes are seen. The cardiomediastinal silhouette is normal. Left upper lung airspace opacities are seen. No evidence of pleural effusion or pneumothorax. IMPRESSION: Left airspace opacities are compatible with pneumonia. ACT 112: Negative or not required by law. Electronically signed by: Miguel Angel Carranza M.D. 10/10/2022 1:01 PM Chest X-Ray 10/12/22 07:00 XR chest 1V portable HISTORY: Shortness of breath. Pneumonia. Follow-up. COMPARISON: Chest 10/10/2022. FINDINGS: Progressive airspace opacities involving the majority of the left lung. This likely represents a pneumonia. No pneumothorax. No pleural effusions. The cardiac silhouette is normal in size. No evidence for pulmonary edema. IMPRESSION: Progressive airspace opacities within the left lung consistent with a pneumonia. ACT 112: Negative or not required by law. Electronically signed by: Mohinder Benz M.D. 10/12/2022 8:16 AM Chest X-Ray 10/13/22 09:27 XR chest 2V PA/lateral HISTORY: Pneumonia COMPARISON: Chest 10/12/2022. FINDINGS: No pneumothorax. No pleural effusions. The heart is normal in size. Patchy left airspace opacities are similar to the prior study. There are few small patchy airspace opacities within the right lung, unchanged. IMPRESSION: No significant change in the multifocal airspace opacities likely representing a pneumonia. This is most pronounced on the left. ACT 112: Negative or not required by law. Electronically signed by: Mohinder Benz M.D. 10/13/2022 10:22 AM Ordered Studies 10/10/22 12:10 CT abd pelvis IV con only Stat Hospital Course (1) Sepsis: (2) Pyelonephritis of left kidney: (3) Enterovirus infection: (4) Epigastric pain: (5) Insulin dependent diabetes mellitus: (6) Hypertension: (7) Hyperlipidemia: Plan Pt is a 41 yo male with PMH of DM presenting due to epigastric abdominal pain and low grade fevers. SIRS, pneumonia - Prev: WBC: 13.39, Temp: 38 C, Heart rate: 123, RR: 20 - CXR: left lung pnx. -Urine and blood cultures negative. - Positive Entero/Rhino virus. - Probable bacterial superimposed on viral. - lactate downtrended after fluid resuscitation - Was given 4 doses of azithromycin ending on 10/13. - Was given 2 doses of ceftriaxone ending on 10/12. - Transition to Augmentin 875 twice daily on 10/12. - Was given a DuoNeb which caused the patient becomes shaky and tachycardic. No benefit to continuing albuterol as an outpatient. - On 10/13 patient became febrile again. CBC and lactate benign. Pro-Stuart slightly elevated though below 2. -Patient's recurrent fevers are most likely secondary to a viral process. Recommend patient continue Augmentin and to follow-up with PCP within 1 week. -Lyme, Babesia, and anaplasmosis were negative on 10/14. -Recommend chest x-ray in 10 days. -We will send home with albuterol as needed. Should continue Augmentin 875 twice daily for total of 7 days ending on 10/19. Epigastric pain - Lipase WNL. Most consistent with gastritis. CT abdomen and pelvis done during this admission showed no explanation of acute abnormalities leading to epigastric pain. - Recheck lipase on 10/13 which was negative. - Famotidine 20mg IV given in ER. Start pantoprazole 40mg PO daily. -Most likely secondary to GERD. Patient should follow-up with PCP about further work-up and management of epigastric pain if does not resolve from PPI. Hypertension -Was initially holding home lisinopril due to acute infection to avoid hypotension -We will restart at time of discharge. Insulin dependent diabetes mellitus - A1C 6.9 in June, hemoglobin A1c of 7.7 on 10/11. - held home 70/30 14 units BID, Xultophy and metformin - Patient should follow-up with PCP regarding diabetic management. Hyperlipidemia - continue atorvastatin Total Time Total Time Spent Total Time Spent (In Minutes): Please refer to attendings attestation. Discharge Plan Discharge Items Patient Disposition: Home - Self-Care Reason For Visit: SEPSIS, PNEUMONIA, UTI Discharge Diagnosis: Sepsis secondary to pneumonia Activity: Resume your previous activity Non-emergency contact: Primary Care Provider Call non-emergency contact if: you have any medication questions, your pain is unusual for you and your temperature is above 101.5 Follow-up/Referrals: Jasper Madison DO [Primary Care Provider] - 10/22/22 11:20 am (In 1 week) Diet: Carb Consistent or DM2 Addtl Attending Provider Instructions: You were admitted to the hospital for sepsis secondary to pneumonia. You were treated with antibiotics and improved. A discharge summary will be sent to your primary care physician to ensure continuity of care. Please bring this discharge summary with you to your next office appointment so that your provider can review it at that time. Follow-up appointments: * Make a follow-up appointment with your PCP within the next week. It is very important that you follow up with them shortly after discharge from the hospital. * Keep all your follow-up appointments as already scheduled. If you cannot make an appointment, notify your provider. Medications: Your medication list has been reviewed and reconciled upon discharge to ensure accuracy and continuity of care. An updated list of all your medications is included with your hospital discharge paperwork. Please review this list closely, and make note of any changes. * We sent a new medication called Augmentin to your pharmacy. Take Augmentin (875/125 mg) 1 tablet twice a day for 6 days. * We sent a new medication called pantoprazole to your pharmacy. Please take pantoprazole (40 mg) once a day in the morning. * We sent a new medication called albuterol to your pharmacy. Please take albuterol 1 puff every 6 hours as needed for shortness of breath or wheezing. * If you have any issues filling these prescriptions, please call [phone] and ask to leave a message for Dr. Longo. * Take your medications as instructed; do not skip a dose of your medicines. Make sure all of your doctors know every medicine you are taking (including [id number] medicines, vitamins, and supplements). Call your primary care provider before taking any new medicines (including over- the-counter medicines, vitamins, and supplements), because some of these may interact with your current medications, or may make your symptoms worse. Tell your primary care provider if you cannot afford your medications. CONTACT YOUR PRIMARY CARE PROVIDER if you experience any of the following: * Worsening of symptoms * Fever, chills, or fatigue * Difficulty following your treatment plan, or difficulty taking medications CALL 911 OR GO TO THE EMERGENCY DEPARTMENT if you experience any of the following: * Sudden, severe abdominal pain or nausea/vomiting * Severe chest pain, or chest pain that radiates (moves) to your jaw or arm * Sudden, severe shortness of breath or difficulty breathing Thank you for allowing us to participate in your care. Pending Studies at Discharge: No Stand-Alone Forms: My [employer], Work/School Release, Smoking Cessation Medications and DC Order Prescriptions: New pantoprazole 40 mg Tablet,Delayed Release (Dr/Ec) 40 mg PO QAM 30 Days Qty: 30 0RF amoxicillin-pot clavulanate 875-125 mg Tablet 1 tab PO BIDM 6 Days Qty: 12 0RF albuterol sulfate 90 mcg/actuation HFA aerosol inhaler 1 inh inhalation Q6H PRN (Reason: shortness of breath or wheezing) Qty: 6.7 0RF Continued (DME) lancets [OneTouch Delica Lancets] 33 gauge misc See Rx Instructions .ROUTE .MEDSUPPLY Qty: 100 5RF Rx Instructions: As directed, test 3 x daily. E11.9 (DME) blood-glucose meter [OneTouch Ultra2 Meter] Kit See Rx Instructions .ROUTE .MEDSUPPLY Qty: 1 0RF Rx Instructions: TEST THREE TIMES DAILY OR DIRECTED (DME) blood sugar diagnostic Strip See Rx Instructions .ROUTE .MEDSUPPLY Qty: 100 5RF Rx Instructions: As directed, test 3 times daily. E11.9 (DME) OneTouch Ultra Test Strip See Rx Instructions .Route Qty: 100 5RF Rx Instructions: Test 3 times/day (DME) pen needle, diabetic [BD Ultra-Fine [place] Pen Needle] 32 gauge x 5/32" needle See Rx Instructions .ROUTE .COMPLEX Qty: 100 5RF Dose Instruction: USE DIRECTED THREE TIMES DAILY Rx Instructions: USE DIRECTED THREE TIMES DAILY metformin 500 mg tablet 500 mg PO BID 90 Days Qty: 180 3RF atorvastatin 20 mg tablet 20 mg PO HS Rx Instructions: TAKE ONE TABLET BY MOUTH AT BEDTIME lisinopril 2.5 mg tablet 2.5 mg PO DAILY Rx Instructions: TAKE ONE TABLET BY MOUTH EVERY DAY insulin asp prt-insulin aspart [Novolog Mix 70-30FlexPen U-100] 100 unit/mL (70-30) insulin pen 14 unit subcut BID Rx Instructions: 16 units q AM, 16 units q PM, subcut twice a day; Xultophy 100/3.6 100 unit-3.6 mg /mL (3 mL) insulin pen 30 unit subcut QPM Discharge Orders: Discharge Order (Routine); Ordered 10/14/22 Ordered By: Abdelrahman Hernandez/Other Patient Handouts: Using an Inhaler with a Spacer, When You Have Pneumonia Admission Data Admit Date/Time: 10/10/22 15:53 Attending Provider: Rosa Maria Mayorga Admit Provider: Bony Rodriguez Primary Care Provider: Jasper Madison Other Providers: Bony Rodriguez ; Tobias Shannon Other Interventions: Discharge Summary Assessment (RN) Last Done: 10/14/22 14:00 Supervising Physician Co-Signing Physician Notes I personally examined the patient and verified all elena points of history and exam, discussed case, and agree with decision making and plan documented by Dr. Longo. Recommended patient schedule follow-up with PCP and check repeat CXR in 10 days to ensure resolution of pneumonia. Provided scripts for Augmentin and albuterol inhaler. Resident Activity Tracking Resident Involvement: Resident Care Provided Care Provided: Adult [facility]
[2022-10-14 08:38] LABS: Hematocrit (blood only) 31.7 % (42.0-52.0); Hemoglobin 10.9 g/dl (14.0-18.0); Mean Corpuscular Hemoglobin 29.1 pg (25.0-34.0); Mean Corpuscular Hgb Conc 34.4 g/dL (32.0-36.0); Mean Corpuscular Volume 84.5 fL (80.0-100.0); Mean Platelet Volume 9.6 fL (9.4-12.4); Platelet Count 233 K/uL (130-400); RDW Coefficient of Variation 12.8 % (11.5-14.5); RDW Standard Deviation 39.6 fL (36.4-46.3); Red Blood Count 3.75 M/uL (4.70-6.10); White Blood Count 9.37 K/ul (4.8-10.8)
[2022-10-14] MEDS ORDERED: lisinopril 2.5 MG TAB PO SCH (09:00)
[2022-10-14] MEDS ORDERED: guaiFENesin 600 MG TABCR PO SCH (09:00)
[2022-10-14] MEDS: AMOXICILLIN/CLAVULANATE 875 MG TAB PO SCH (09:11)
[2022-10-14] MEDS: PANTOprazole 40 MG TAB PO SCH (09:12)
[2022-10-14] MEDS: POLYETHYLENE (MIRALAX) 17 GM PACK PO SCH (09:13)
[2022-10-14] MEDS: LANTUS PER UNIT CHARGE SQ SCH (09:22)
[2022-10-14] MEDS: INSULIN ASPART PER UNIT CHARGE SC SCH ×2 (09:24→13:10)
[2022-10-14 12:02] LABS: Lyme Ab IgG w/WB Rflx Negative (Negative); Lyme Ab IgM w/WB Rflx Negative (Negative)
== END 2022-10-14 15:08 | disposition home or self-care (01) | DRG 871 ==
LOC: ED 10:30 → SUATTDRO 15:53 → 3N 15:53